=== PATIENT | male | born 1990 | race African-American/Black ===

== ENCOUNTER 2018-09-10 10:44 | Emergency (ER) | payer OTHER ==
--- NOTE | 2018-09-10 10:55 | PDOC ---
History of Present Illness - General Stated Complaint: FALL Time Seen by Provider: 09/10/18 10:54 - History of Present Illness Initial Comments: 09/10/18 11:12 Mr. Gaitan is a 28 yo male w/ pmh of HIV (newly started medications; T cell count undetectable) and asthma who presents for evaluation of seizure and fall. Per patient / mother patient had a less than one minute episode 09/07 in the evening of diffuse upper body shaking that he was not conscious for and was confused after. Patient was reportedly fine the next day however fell last night while walking to the bathroom and hit his head (denies LOC; reports he stumbled). Consulted with Dr. Gonzalez who recommended presenting for evaluation. The patient denies chest pain, shortness of breath, headache and dizziness. Denies fever, chills, nausea, vomit, diarrhea and constipation. Denies dysuria, frequency, urgency and hematuria. Allergies: NKDA Past History - Past Medical History Allergies/Adverse Reactions: Allergies Allergy/AdvReac Type Severity Reaction Status Date / Time No Known Allergies Allergy Verified 09/10/18 11:04 Home Medications: Ambulatory Orders Fluconazole [Diflucan -] 100 mg PO DAILY #30 tablet 03/27/16 Atovaquone [Mepron -] 1,500 mg PO DAILY@0800 #70 ml 08/01/18 Clotrimazole [Mycelex Venu's -] 10 mg PO 5XD #35 venu 08/01/18 Azithromycin [Zithromax -] 1,200 mg PO WEEKLY #8 tablet 08/08/18 Darunavir/Cobicistat [Prezcobix 800 mg-150 mg Tablet] 1 each PO DAILY #30 tablet 08/08/18 Emtricitabine/Tenofov Alafenam [Descovy 200-25 mg Tablet (Nf)] 1 each PO DAILY # 30 tablet 08/08/18 Lactose-Reduced Food [Ensure Original] 237 ml PO TID #90 liquid 08/08/18 Docusate Sodium [Colace -] 1 - 2 cap PO HS PRN #30 capsule MDD 2 08/12/18 Anemia: No Asthma: Yes ( A CHILD) Cancer: No Cardiac Disorders: No CVA: No COPD: No CHF: No Dementia: No Diabetes: No GI Disorders: No Disorders: No HTN: No Hypercholesterolemia: No Liver Disease: No Seizures: No Thyroid Disease: No - Surgical History Abdominal Surgery: No Appendectomy: No Cardiac Surgery: No Cholecystectomy: No Lung Surgery: No Neurologic Surgery: No Orthopedic Surgery: No - Suicide/Smoking/Psychosocial Hx Smoking History: Never smoked Hx Alcohol Use: Yes (SOCIAL) Drug/Substance Use Hx: No Substance Use Type: None Hx Substance Use Treatment: No Review of Systems - Review of Systems Comments:: 09/10/18 11:22 GENERAL/CONSTITUTIONAL: No fever or chills. No weakness. HEAD, EYES, EARS, NOSE AND THROAT: No change in vision. No ear pain or discharge. No sore throat. CARDIOVASCULAR: No chest pain or shortness of breath RESPIRATORY: No cough, wheezing, or hemoptysis. GASTROINTESTINAL: No nausea, vomiting, diarrhea or constipation. GENITOURINARY: No dysuria, frequency, or change in urination. MUSCULOSKELETAL: No joint or muscle swelling or pain. No neck or back pain. SKIN: No rash NEUROLOGIC: +Seizure-like episode as described. No other headache, vertigo, loss of consciousness, or change in strength/sensation. ENDOCRINE: No increased thirst. No abnormal weight change HEMATOLOGIC/LYMPHATIC: No anemia, easy bleeding, or history of blood clots. ALLERGIC/IMMUNOLOGIC: No hives or skin allergy. *Physical Exam - Physical Exam Comments: 09/10/18 11:22 GENERAL: +Patient extremely thin appearing however awake, alert, and fully oriented, in no acute distress HEAD: No signs of trauma, normocephalic, atraumatic EYES: PERRLA, EOMI, sclera anicteric, conjunctiva clear ENT: Auricles normal inspection, hearing grossly normal, nares patent, oropharynx clear without exudates. Moist mucosa NECK: Normal ROM, supple, no lymphadenopathy, JVD, or masses LUNGS: +Some wheezes appreciated in right lung [place], however no distress, speaks full sentences, clear to auscultation bilaterally HEART: Regular rate and rhythm, normal S1 and S2, no murmurs, rubs or gallops, peripheral pulses normal and equal bilaterally. ABDOMEN: Soft, nontender, normoactive bowel sounds. No guarding, no rebound. No masses EXTREMITIES: Normal inspection, Normal range of motion, no edema. No clubbing or cyanosis. NEUROLOGICAL: Cranial nerves II through XII grossly intact. Normal speech, normal gait, no focal sensorimotor deficits SKIN: Warm, Dry, normal turgor, no rashes or lesions noted. ED Treatment Course - LABORATORY CBC & Chemistry Diagram: 09/10/18 11:18 09/10/18 11:18 Medical Decision Making - Medical Decision Making 09/10/18 14:40 Mr. Gaitan is a 28 yo male w/ newly treated HIV who presents for evaluation of seizure. Consulted with ID who do not believe LP indicated emergently and broad workup started as below complete with head CT (negative for acute findings ; cerebral volume decreased vs. age). EKG negative. CXR negative. Patient elected to leave AMA while admission in progress. Risks explained however patient reports he will put his care "in god's hands." Patiented signed AMA forms and left ED. Laboratory Results - last 24 hr 09/10/18 09/10/18 09/10/18 11:18 11:18 11:18 WBC 2.3 L RBC 3.17 L Hgb 10.0 L Hct 30.3 L MCV 95.5 MCH 31.5 MCHC 33.0 RDW 19.1 H Plt Count 410 MPV 6.9 L Absolute Neuts (auto) 0.8 L Neutrophils % 33.1 L Neutrophils % (Manual) 30.0 L Band Neutrophils % 3.0 Lymphocytes % 36.8 Lymphocytes % (Manual) 28.0 D Monocytes % 9.9 Monocytes % (Manual) 11 H Eosinophils % 16.2 H Eosinophils % (Manual) 22.0 H Basophils % 4.0 H D Basophils % (Manual) 5.0 H Myelocytes % (Man) 0 Promyelocytes % (Man) 0 Blast Cells % (Manual) 0 Nucleated RBC % 0 Metamyelocytes 0 Hypochromia 0 Platelet Estimate Normal Polychromasia 0 Poikilocytosis 1+ Anisocytosis 1+ Macrocytosis 1+ Ovalocytes 1+ PT with INR 11.20 INR 0.95 PTT (Actin FS) 30.6 VBG pH 7.38 POC VBG pCO2 48.8 POC VBG pO2 35.2 Mixed VBG HCO3 28.4 H Sodium Potassium Chloride Carbon Dioxide Anion Gap BUN Creatinine Creat Clearance w eGFR POC Glucometer Random Glucose Lactic Acid Calcium Total Bilirubin AST ALT Alkaline Phosphatase Ammonia Troponin I Total Protein Albumin Urine Color Urine Appearance Urine pH Ur Specific [place] Urine Protein Urine Glucose (UA) Urine Ketones Urine Blood Urine Nitrite Urine Bilirubin Urine Urobilinogen Ur Leukocyte Esterase Urine WBC (Auto) Urine RBC (Auto) Salicylates Opiates Screen Methadone Screen Acetaminophen Barbiturate Screen Phencyclidine Screen Ur Amphetamines Screen MDMA (Ecstasy) Screen Benzodiazepines Screen Cocaine Screen U Marijuana (THC) Screen 09/10/18 09/10/18 09/10/18 11:18 11:18 11:18 WBC RBC Hgb Hct MCV MCH MCHC RDW Plt Count MPV Absolute Neuts (auto) Neutrophils % Neutrophils % (Manual) Band Neutrophils % Lymphocytes % Lymphocytes % (Manual) Monocytes % Monocytes % (Manual) Eosinophils % Eosinophils % (Manual) Basophils % Basophils % (Manual) Myelocytes % (Man) Promyelocytes % (Man) Blast Cells % (Manual) Nucleated RBC % Metamyelocytes Hypochromia Platelet Estimate Polychromasia Poikilocytosis Anisocytosis Macrocytosis Ovalocytes PT with INR INR PTT (Actin FS) VBG pH POC VBG pCO2 POC VBG pO2 Mixed VBG HCO3 Sodium 148 H Potassium 2.9 L* Chloride 122 H Carbon Dioxide 22 Anion Gap 4 L BUN 12 Creatinine 0.4 L Creat Clearance w eGFR > 60 POC Glucometer Random Glucose 49 L* Lactic Acid 0.9 Calcium 5.8 L* Total Bilirubin 0.1 L AST 28 ALT 35 Alkaline Phosphatase 312 H Ammonia Troponin I < 0.02 Total Protein 4.6 L Albumin 2.1 L Urine Color Urine Appearance Urine pH Ur Specific [place] Urine Protein Urine Glucose (UA) Urine Ketones Urine Blood Urine Nitrite Urine Bilirubin Urine Urobilinogen Ur Leukocyte Esterase Urine WBC (Auto) Urine RBC (Auto) Salicylates < 1.7 L Opiates Screen Methadone Screen Acetaminophen < 2 L Barbiturate Screen Phencyclidine Screen Ur Amphetamines Screen MDMA (Ecstasy) Screen Benzodiazepines Screen Cocaine Screen U Marijuana (THC) Screen 09/10/18 09/10/18 09/10/18 11:18 11:30 11:30 WBC RBC Hgb Hct MCV MCH MCHC RDW Plt Count MPV Absolute Neuts (auto) Neutrophils % Neutrophils % (Manual) Band Neutrophils % Lymphocytes % Lymphocytes % (Manual) Monocytes % Monocytes % (Manual) Eosinophils % Eosinophils % (Manual) Basophils % Basophils % (Manual) Myelocytes % (Man) Promyelocytes % (Man) Blast Cells % (Manual) Nucleated RBC % Metamyelocytes Hypochromia Platelet Estimate Polychromasia Poikilocytosis Anisocytosis Macrocytosis Ovalocytes PT with INR INR PTT (Actin FS) VBG pH POC VBG pCO2 POC VBG pO2 Mixed VBG HCO3 Sodium Potassium Chloride Carbon Dioxide Anion Gap BUN Creatinine Creat Clearance w eGFR POC Glucometer Random Glucose Lactic Acid Calcium Total Bilirubin AST ALT Alkaline Phosphatase Ammonia 18.75 Troponin I Total Protein Albumin Urine Color Yellow Urine Appearance Slcloudy Urine pH 6.0 Ur Specific [place] 1.017 Urine Protein Negative Urine Glucose (UA) Negative Urine Ketones Negative Urine Blood Negative Urine Nitrite Negative Urine Bilirubin Negative Urine Urobilinogen 2.0 Ur Leukocyte Esterase 1+ H Urine WBC (Auto) 12 Urine RBC (Auto) 1 Salicylates Opiates Screen Positive A* Methadone Screen Negative Acetaminophen Barbiturate Screen Negative Phencyclidine Screen Negative Ur Amphetamines Screen Negative MDMA (Ecstasy) Screen Negative Benzodiazepines Screen Positive A* Cocaine Screen Negative U Marijuana (THC) Screen Negative 09/10/18 13:19 WBC RBC Hgb Hct MCV MCH MCHC RDW Plt Count MPV Absolute Neuts (auto) Neutrophils % Neutrophils % (Manual) Band Neutrophils % Lymphocytes % Lymphocytes % (Manual) Monocytes % Monocytes % (Manual) Eosinophils % Eosinophils % (Manual) Basophils % Basophils % (Manual) Myelocytes % (Man) Promyelocytes % (Man) Blast Cells % (Manual) Nucleated RBC % Metamyelocytes Hypochromia Platelet Estimate Polychromasia Poikilocytosis Anisocytosis Macrocytosis Ovalocytes PT with INR INR PTT (Actin FS) VBG pH POC VBG pCO2 POC VBG pO2 Mixed VBG HCO3 Sodium Potassium Chloride Carbon Dioxide Anion Gap BUN Creatinine Creat Clearance w eGFR POC Glucometer [id number] Random Glucose Lactic Acid Calcium Total Bilirubin AST ALT Alkaline Phosphatase Ammonia Troponin I Total Protein Albumin Urine Color Urine Appearance Urine pH Ur Specific [place] Urine Protein Urine Glucose (UA) Urine Ketones Urine Blood Urine Nitrite Urine Bilirubin Urine Urobilinogen Ur Leukocyte Esterase Urine WBC (Auto) Urine RBC (Auto) Salicylates Opiates Screen Methadone Screen Acetaminophen Barbiturate Screen Phencyclidine Screen Ur Amphetamines Screen MDMA (Ecstasy) Screen Benzodiazepines Screen Cocaine Screen U Marijuana (THC) Screen 09/10/18 14:42 *DC/Admit/Observation/Transfer Diagnosis at time of Disposition: AIDS with cachexia, Seizure Leukopenia Qualifiers: Leukopenia type: unspecified Qualified Code(s): D72.819 - Decreased white blood cell count, unspecified Neutropenia Qualifiers: Neutropenia type: unspecified Qualified Code(s): D70.9 - Neutropenia, unspecified - Discharge Dispostion Disposition: AGAINST MEDICAL ADVICE - Referrals - Patient Instructions Additional Instructions: You were evaluated today in the emergency room for your seizure and elected to leave AMA when admission was pending. Please follow-up with primary care provider as soon as possible. Return to ER if any further neurological symptoms , fevers, chills, or other concerning symptoms. - Post Discharge Activity
[2018-09-10] MEDS: ALBUTEROL SO4 2.5/IPRATROPIUM 0.5 INH SOL 3 ML VIAL.NEB. NEB SCH ×4 (11:15→12:09)
[2018-09-10] MEDS ORDERED: ALBUTEROL SO4 2.5/IPRATROPIUM 0.5 INH SOL 3 ML VIAL.NEB. NEB ONE (11:30)
[2018-09-10 11:34] LABS: VENOUS PC02 48.8 mmHg (38-52); VENOUS PH 7.38 (7.32-7.42); VENOUS PO2 35.2 mmHg (28-48)
[2018-09-10 11:43] VITALS: BMI 20.3
[2018-09-10 11:44] LABS: EOS % 16.2 % (0-4.5); HEMATOCRIT 30.3 % (35.4-49); LYMPH % 36.8 % (8-40); MCH 31.5 pg (25.7-33.7); MEAN CELL VOLUME 95.5 fl (80-96); MEAN PLT VOLUME 6.9 fl (7.5-11.1); MONO % 9.9 % (3.8-10.2); NEUT % 33.1 % (42.8-82.8); PLATELET COUNT 410 K/MM3 (134-434); RBC 3.17 M/mm3 (4.00-5.60); RDW 19.1 % (11.9-15.9); WHITE BLOOD COUNT 2.3 K/mm3 (4.0-10.0)
[2018-09-10 11:55] LABS: URINE APPEARANCE SLCLOUDY; URINE BILIRUBIN NEGATIVE (<2.0 mg/dL); URINE COLOR YELLOW; URINE GLUCOSE (UA) NEGATIVE (NEGATIVE); URINE KETONE NEGATIVE (NEGATIVE); URINE LEUK ESTERASE 1+ (NEGATIVE); URINE NITRITE NEGATIVE (NEGATIVE); URINE PROTEIN NEGATIVE (NEGATIVE)
[2018-09-10 12:01] LABS: COCAINE, UR NEGATIVE ng/ml (CUTOFF=300); METHADONE, UR NEGATIVE ng/ml (CUTOFF=300); PHENCYCLIDINE,URINE NEGATIVE ng/ml (CUTOFF=25); URINE AMPHETAMINES NEGATIVE ng/ml (CUTOFF=500); URINE BARBITURATES NEGATIVE ng/ml (CUTOFF=200)
[2018-09-10 12:08] LABS: INR 0.95 (0.83-1.09); PROTHROMBIN TIME (PATIENT) 11.2 SEC (9.7-13.0)
[2018-09-10 12:11] LABS: ACTIVATED PTT 30.6 SECONDS (25.2-36.5)
[2018-09-10 12:22] LABS: ALBUMIN 2.1 g/dl (3.4-5.0); ALK PHOS 312 U/L (45-117); ANION GAP 4 MMOL/L (8-16); BILIRUBIN,TOTAL 0.1 mg/dL (0.2-1); BLOOD UREA NITROGEN 12 mg/dL (7-18); CHLORIDE 122 mmol/L (98-107); CO2 22 mmol/L (21-32); CREATININE 0.4 mg/dL (0.55-1.3); SGOT/AST 28 U/L (15-37); SGPT/ALT 35 U/L (13-61); SODIUM 148 mmol/L (136-145); TOT PROT 4.6 g/dl (6.4-8.2)
[2018-09-10 12:27] LABS: OPIATES, URI POSITIVE ng/ml (CUTOFF=300); URINE BENZODIAZEPINES POSITIVE ng/ml (CUTOFF=200)
[2018-09-10 12:30] LABS: GLUCOSE,RANDOM 49 mg/dL (74-106); POTASSIUM 2.9 mmol/L (3.5-5.1)
[2018-09-10 12:31] LABS: CALCIUM 5.8 mg/dL (8.5-10.1)
[2018-09-10] MEDS ORDERED: CALCIUM GLUCONATE 10% - 1,000 MG/10 ML VIAL IVPB ONE (12:46)
--- NOTE | 2018-09-10 12:50 | PDOC ---
Attending Attestation - Resident Resident Name: CarltonirisIsraKeshav - ED Attending Attestation I have performed the following: I have examined & evaluated the patient, The case was reviewed & discussed with the resident, I agree w/resident's findings & plan - HPI HPI: 09/10/18 12:45 28-year-old male with history of untreated HIV/AIDS, recently started on HIV meds by the [facility] about 6 weeks ago, now referred for evaluation in the setting of possible seizure episode 3 nights ago and trip and fall last night. Patient was in his baseline state of health, while lying in bed was noted to have upper torso and face tremors with change in mental status, lasted seconds and then resolved without associated postictal state per mom, immediately after the tremors he asked "what happened" and was otherwise neurologically intact and oriented. Patient returned to his baseline, last night while walking in the dark tripped and scraped his left estrella, denied any head injury. Spoke with Dr. Gonzalez today, noted his seizure episode, and referred to ED. no travel, no recent headaches, no f/c. (on exam, was noted to have slight gaze deviation of L eye on upward gaze. States he has noticed this for about 2 years). - Physicial Exam PE: 09/10/18 12:48 vitals as noted, afebrile Pain, otherwise alert and speaking full sentences Head is atraumatic Pupils are equal round reactive, extraocular movements intact but slight outward deviation noted on left thigh with upper gaze, causes slight diplopia but the patient can correct No mucosal lesions Heart is regular, lungs are clear Abdomen benign Neurologically intact - Medical Decision Making 09/10/18 12:49 28-year-old male with HIV/AIDS presents with possible new onset partial seizure , concerning for space-occupying lesion versus infectious process given his immunocompromise state. Fall last night was very mechanical, low mechanism left estrella injury without subsequent headache injury and without evidence of seizure or syncope activity at that time. Labs, cultures CT head with and without contrast Chest x-ray Discuss with ID, ? LP Dispo accordingly <Jose F Arce - Last Filed: 09/10/18 12:50> - Medical Decision Making 09/10/18 13:[address] Gonzalez, ID's answering service, awaiting call back. 14:[address] Gonzalez, case was discussed with resident, Dr. Allen. 14:[address] Koenig's answering service, admitting doctor for Dr. Rick patient's PCP, awaiting call back. <Oscar Calloway - Last Filed: 09/10/18 14:18> Heart Score/ECG Review #1 ECG reviewed & interpreted by me at: 11:13 General ECG Interpretation: Sinus Rhythm, Normal Rate (83), Normal Intervals ( qtc 413), No acute ischemic changes <Jose F Arce - Last Filed: 09/10/18 12:50> Attestations - Attestations 09/10/18 13:34 Documentation prepared by Oscar Calloway, acting as medical transcription radiology for Jose F Arce MD. <Oscar Calloway - Last Filed: 09/10/18 14:18>
[2018-09-10] MEDS ORDERED: KCL 10 MEQ IVPB 10 MEQ/100 ML INFUS.BAG IVPB SCH (13:00)
[2018-09-10] MEDS ORDERED: KCL 10 MEQ IVPB 30 MEQ/300 ML INFUS.BAG IVPB ONE (13:12)
[2018-09-10] MEDS ORDERED: CALCIUM GLUCONATE 10% - 1,000 MG/10 ML VIAL ONE (13:12)
[2018-09-10 13:48] LABS: ANISOCYTOSIS 1+; MACROCYTOSIS 1+; OVALOCYTE 1+; PLATELET ESTIMATE NORMAL
[2018-09-10 14:22] VITALS: BP 122/75; PULSE 51; TEMP 98.9
--- NOTE | 2018-09-11 11:09 | EKG ---
Test Reason : Blood Pressure : / mmHG Vent. Rate : 083 BPM Atrial Rate : 083 BPM P-R Int : 130 ms QRS Dur : 092 ms QT Int : 352 ms P-R-T Axes : 063 035 053 degrees QTc Int : 413 ms NORMAL SINUS RHYTHM NORMAL ECG WHEN COMPARED WITH ECG OF 08-AUG-2018 11:48, NO SIGNIFICANT CHANGE WAS FOUND Confirmed by MAILE WELLS MD ([id number]) on 09/11/2018 11:09:30 AM Referred By: Confirmed By:MAILE WELLS MD
== END 2018-09-10 14:47 | disposition left against medical advice (07) ==
LOC: JER 10:44
PROC: 3E0F7GC Introduction of Other Therapeutic Substance into Respiratory Tract, Via Natural or Artificial Opening (ICD-10-PCS; principal; 2018-09-10)
PROC: 3E0337Z Introduction of Electrolytic and Water Balance Substance into Peripheral Vein, Percutaneous Approach (ICD-10-PCS; 2018-09-10)
DX: R56.9 Unspecified convulsions (principal); S09.8XXA Other specified injuries of head, initial encounter; W18.39XA Other fall on same level, initial encounter; Y93.89 Activity, other specified; Y92.031 Bathroom in apartment as the place of occurrence of the external cause; Y99.8 Other external cause status; B20 Human immunodeficiency virus [HIV] disease; R64 Cachexia; Z68.20 Body mass index [BMI] 20.0-20.9, adult; J45.909 Unspecified asthma, uncomplicated
CPT/HCPCS: 36415; 70470-TC; 71045-TC-FY; 80053; 80307; 81003; 81015; 82140; 82803; 82962; 83605; 84484; 85025; 85610; 85730; 87040; 87086; 93005; 93010; 94640; 96374; 96375; 99283-25

== ENCOUNTER → 2019-07-15 | Outpatient (CLI) | payer OTHER | LOC: YHH 14:45 ==

== ENCOUNTER 2019-12-28 11:38 | Inpatient (IN) | payer OTHER ==
[2019-12-28 13:21] VITALS: BMI 25.9
--- NOTE | 2019-12-28 16:00 | HP ---
COWS - Scale Resting Pulse: 0= SC 80 or Below Sweatin= Chills/Flushing Restless Observation: 1= Difficult to Sit Still Pupil Size: 1= Pupils >than Normal Bone or Joint Aches: 1= Mild Discomfort Runny Nose/ Eye Tearin= Nasal Congestion GI Upset > 30mins: 2= Nausea/Diarrhea Tremor Observation: 1= Tremor [place], Not Seen Yawning Observation: 1= 1-2x During Session Anxiety or Irritability: 1=Feels Anxious/Irritable Goose Flesh Skin: 3=Piloerection COWS Score: 13 CIWA Score Nausea/Vomitin (diarrhea) Muscle Tremors: 2 Anxiety: 2 Agitation: 2 Paroxysmal Sweats: 2 Orientation: 0-Oriented Tacttile Disturbances: 2-Mild Itch/Numbness/Burn Auditory Disturbances: 0-None Visual Disturbances: 2-Mild Sensitivity Headache: 1-Very Mild CIWA-Ar Total Score: 16 - Admission Criteria [facility] Guidelines: Admission for Medically Managed Detox: Requires at least one of the followin. CIWA greater than 12 2. Seizures within the past 24 hours 3. Delirium tremens within the past 24 hours 4. Hallucinations within the past 24 hours 5. Acute intervention needed for co occurring medical disorder 6. Acute intervention needed for co occurring psychiatric disorder 7. Severe withdrawal that cannot be handled at a lower level of care (continued vomiting, continued diarrhea, abnormal vital signs) requiring intravenous medication and/or fluids 8. Patient presents the following: CIWA greater than 12 Admission Criteria Met: Admission criteria met Admitting History and Physical - Past Medical History GIS MAPPING TECHNICIAN: Yes: Other (ANXIETY DISORDER) Pulmonary: Yes: Asthma Psych: Yes: Anxiety, Panic - Past Surgical History Past Surgical History: Yes: None - Smoking History Smoking history: Unknown if ever smoked - Alcohol/Substance Use Hx Alcohol Use: Yes (SOCIAL) History of Substance Use: reports: None - Social History History of Recent Travel: No Admission ROS [facility] - HPI Chief Complaint: I am here to get detox Allergies/Adverse Reactions: Allergies Allergy/AdvReac Type Severity Reaction Status Date / Time sulfamethoxazole Allergy Intermediate Rash Verified 12/28/19 13:12 [From Bactrim] trimethoprim [From Bactrim] Allergy Intermediate Rash Verified 12/28/19 13:12 History of Present Illness: 29 year old man with poly-substance use presents for detox, his urine screen is negative for benzo as he reports he hasn't used in a few days. This is his first time in detox. Exam Limitations: No Limitations - Ebola screening Have you traveled outside of the country in the last 21 days: No Have you had contact with anyone from an Ebola affected area: No Have you been sick,other than usual withdrawal symptoms: No Do you have a fever: No - Review of Systems Constitutional: Chills, Loss of Appetite, Changes in sleep, Weight Stable EENT: reports: Nose Congestion Respiratory: reports: No Symptoms reported Cardiac: reports: No Symptoms Reported GI: reports: Diarrhea, Nausea, Abdominal cramping : reports: No Symptoms Reported Musculoskeletal: reports: Back Pain, Joint Pain, Muscle Pain, Neck Pain Integumentary: reports: Sweating Neuro: reports: Headache, Numbness, Tremors Endocrine: reports: No Symptoms Reported Hematology: reports: No Symptoms Reported Psychiatric: reports: Depressed (not on meds) Other Systems: Reviewed and Negative Patient History - Patient Medical History Hx Anemia: No Hx Asthma: Yes ( A CHILD) Hx Chronic Obstructive Pulmonary Disease (COPD): No Hx Cancer: No Hx Cardiac Disorders: No Hx Congestive Heart Failure: No Hx Hypertension: No Hx Hypercholesterolemia: No Hx Pacemaker: No HX Cerebrovascular Accident: No Hx Seizures: Yes (last event was 7 months ago, unrelated to drugs) Hx Dementia: No Hx Diabetes: No Hx Gastrointestinal Disorders: No Hx Liver Disease: No Hx Genitourinary Disorders: No Hx Renal Disease (ESRD): No Hx Thyroid Disease: No Hx Human Immunodeficiency Virus (HIV): Yes Hx Hepatitis C: No Hx Depression: No Hx Suicide Attempt: Yes (as a child) Hx Bipolar Disorder: No Hx Schizophrenia: No - Patient Surgical History Past Surgical History: No Anesthesia Reaction: No (NEVER HAD ANESTHESIA) - PPD History Previous Implant?: Yes Documented Results: Negative w/o proof Implanted On Prior [facility] Admission?: Yes Date: 03/19/16 PPD to be Administered?: Yes - Smoking Cessation Smoking history: Never smoked Hx Chewing Tobacco Use: No - Substances abused Alcohol Substance route: Oral Frequency: 3-6 times per week Amount used: 1 liter of rum Age of first use: 20 Date of last use: 12/26/19 Heroin Substance route: Inhalation Frequency: Daily Amount used: 4 bags Age of first use: 23 Date of last use: 12/28/19 Cocaine Substance route: Inhalation Frequency: 1-2 times per week Amount used: $100 Age of first use: 27 Date of last use: 12/26/19 Alprazolam (Xanax) Substance route: Inhalation Frequency: 1-2 times per week Amount used: 2 bars Age of first use: 19 Date of last use: 12/23/19 Admission Physical Exam [facility] - Vital Signs Vital Signs: Vital Signs - 24 hr 12/28/19 13:15 Temperature 97.8 F Pulse Rate 76 Respiratory 16 Rate Blood Pressure 132/83 - Physical General Appearance: Yes: No Apparent Distress HEENTM: Yes: Hearing grossly Normal, Normal ENT Inspection, Normocephalic, Normal Voice Respiratory: Yes: Chest Non-Tender, Lungs Clear, Normal Breath Sounds, No Respiratory Distress, No Accessory Muscle Use Neck: Yes: No masses,lesions,Nodules, Supple Breast: Yes: Breast Exam Deferred Cardiology: Yes: Regular Rhythm, Regular Rate, S1, S2 Abdominal: Yes: Normal Bowel Sounds, Non Tender, Soft Genitourinary: Yes: Within Normal Limits Back: Yes: Normal Inspection Musculoskeletal: Yes: full range of Motion, Gait Steady, Pelvis Stable Extremities: Yes: Tremors, Coldness Neurological: Yes: glass designer II-XII NML intact, Fully Oriented, Alert, Normal Mood/ Affect, Normal Response Integumentary: Yes: Clammy Lymphatic: Yes: Within Normal Limits - Diagnostic (1) Alcohol dependence, uncomplicated Current Visit: Yes Status: Acute (2) Opiate dependence Current Visit: Yes Status: Acute Qualifiers: Substance use status: uncomplicated Qualified Code(s): F11.20 - Opioid dependence, uncomplicated (3) Benzodiazepine abuse Current Visit: Yes Status: Acute (4) Cocaine abuse Current Visit: Yes Status: Acute (5) HIV (human immunodeficiency virus infection) Current Visit: No Status: Chronic Qualifiers: HIV symptom status: asymptomatic Qualified Code(s): Z21 - Asymptomatic human immunodeficiency virus [HIV] infection status Comment: alida Cleared for Admission [facility] - Detox or Rehab [facility] Level of Care: Medically Managed Detox Regimen/Protocol: Methadone/Librium Claeared for Rehab Admission: No Breathalyzer - Breathalyzer Breathalyzer: 0 Urine Drug Screen - Test Device Lot number: [id number] Expiration date: 06/12/21 - Control Is test valid?: Yes - Results Drug screen NEGATIVE: No Urine drug screen results: ALIX-Cocaine, MOP-Opiates Inpatient Rehab Admission - Rehab Decision to Admit Inpatient rehab admission?: No
[2019-12-28] MEDS ORDERED: ACETAMINOPHEN 325 MG TABLET (FP) PO PRN ×2 (16:08)
[2019-12-28] MEDS ORDERED: NALOXONE HCL 0.4 MG/ML VIAL IM PRN (16:08)
[2019-12-28] MEDS ORDERED: MAGNESIUM CITRATE 300 ML BOTTLE PO PRN (16:08)
[2019-12-28] MEDS ORDERED: BISMUTH SUBSALICYLATE 524 MG/30 ML UD PO PRN (16:08)
[2019-12-28] MEDS ORDERED: MENTHOL/PHENOL 1 EACH UD MM PRN (16:08)
[2019-12-28] MEDS ORDERED: MAG HYDROX/AL HYDROX/SIMETH 30 ML UNIT-DOSE CUP PO PRN (16:08)
[2019-12-28] MEDS ORDERED: METHADONE HCL 10 MG TABLET (FOR DETOX USE ONLY) PO ONE (16:08)
[2019-12-28] MEDS ORDERED: METHOCARBAMOL 500 MG TABLET PO PRN (16:08)
[2019-12-28] MEDS ORDERED: MELATONIN 5 MG TABLETS PO PRN (16:08)
[2019-12-28] MEDS ORDERED: diazePAM 5 MG TABLET PO ONE (16:08)
[2019-12-28] MEDS ORDERED: cloNIDine HCL 0.1 MG TABLET PO PRN (16:08)
[2019-12-28] MEDS ORDERED: IBUPROFEN 400 MG TABLET (FP) PO PRN (16:08)
[2019-12-28] MEDS ORDERED: diazePAM 5 MG TABLET PO PRN (16:08)
[2019-12-28] MEDS ORDERED: MAGNESIUM HYDROX 2400MG/30ML ORAL SUSPENSION 30 ML CUP PO PRN (16:08)
[2019-12-28] MEDS ORDERED: chlordiazePOXIDE HCL 10 MG CAPSULE PO PRN (16:15)
[2019-12-28] MEDS ORDERED: PATIENT'S OWN MEDICATION (NON-FORMULARY) (Bictegrav/Emtricit/Tenofov Ala 1 EACH) PO SCH (16:15)
[2019-12-28] MEDS ORDERED: chlordiazePOXIDE HCL 25 MG CAPSULE PO ONE (16:15)
[2019-12-28 17:30] VITALS: BP 127/75; PULSE 56; TEMP 98.4
--- NOTE | 2019-12-28 18:57 | DS ---
[facility] Detox Discharge Summary Admission Date: 12/28/19 Discharge Date: 12/28/19 - History Present History: Opioid Dependence Pertinent Past History: HIV positive Depression - Physical Exam Results Vital Signs: Vital Signs Temperature 98.4 F 12/28/19 17:19 Pulse Rate 56 L 12/28/19 17:19 Respiratory Rate 18 12/28/19 17:19 Blood Pressure 127/75 12/28/19 17:19 O2 Sat by Pulse Oximetry (%) Pertinent Admission Physical Exam Findings: Withdrawal sx - Medication Discharge Medications: Ambulatory Orders Bictegrav/Emtricit/Tenofov Ala [Biktarvy 50-200-25 mg Tablet] 1 each PO DAILY # 30 tablet 11/11/19 - Diagnosis (1) Alcohol dependence, uncomplicated Current Visit: Yes Status: Acute (2) Opiate dependence Current Visit: Yes Status: Acute Qualifiers: Substance use status: uncomplicated Qualified Code(s): F11.20 - Opioid dependence, uncomplicated (3) Benzodiazepine abuse Current Visit: Yes Status: Acute (4) Cocaine abuse Current Visit: Yes Status: Acute (5) HIV (human immunodeficiency virus infection) Current Visit: No Status: Chronic Qualifiers: HIV symptom status: asymptomatic Qualified Code(s): Z21 - Asymptomatic human immunodeficiency virus [HIV] infection status - AMA Did Patient Leave Against Medical Advice: Yes (Pt. claims he brought paper wk from his job that cant be found so he's boo)
[2019-12-28] MEDS ORDERED: chlordiazePOXIDE HCL 25 MG CAPSULE PO SCH (21:00)
[2019-12-28] MEDS ORDERED: diazePAM 5 MG TABLET PO SCH (22:00)
[2019-12-28] MEDS ORDERED: THIAMINE HCL 100 MG TABLET (FP) PO SCH (22:00)
--- NOTE | 2019-12-29 09:47 | EKG ---
Test Reason : Blood Pressure : / mmHG Vent. Rate : 058 BPM Atrial Rate : 058 BPM P-R Int : 130 ms QRS Dur : 098 ms QT Int : 402 ms P-R-T Axes : 048 029 037 degrees QTc Int : 394 ms SINUS BRADYCARDIA OTHERWISE NORMAL ECG WHEN COMPARED WITH ECG OF 10-SEP-2018 11:13, NO SIGNIFICANT CHANGE WAS FOUND Confirmed by iKm Pappas ([id number]) on 12/29/2019 9:47:09 AM Referred By: DIMAS Confirmed By:Kim Pappas
[2019-12-29] MEDS ORDERED: METHADONE HCL 5 MG TABLET (FOR DETOX USE ONLY) PO ONE (10:00)
[2019-12-29] MEDS ORDERED: PRENATAL VITAMINS W/ FOLIC ACID TABLET (FP) PO SCH (10:00)
[2019-12-30] MEDS ORDERED: chlordiazePOXIDE 5 MG CAPSULE PO SCH (05:00)
[2019-12-30] MEDS ORDERED: diazePAM 5 MG TABLET PO SCH (06:00)
[2019-12-30] MEDS ORDERED: METHADONE HCL 10 MG TABLET (FOR DETOX USE ONLY) PO ONE (10:00)
[2019-12-31] MEDS ORDERED: chlordiazePOXIDE HCL 10 MG CAPSULE PO PRN
[2019-12-31] MEDS ORDERED: chlordiazePOXIDE HCL 10 MG CAPSULE PO SCH (05:00)
[2019-12-31] MEDS ORDERED: METHADONE HCL 5 MG TABLET (FOR DETOX USE ONLY) PO ONE (06:00)
[2019-12-31] MEDS ORDERED: diazePAM 5 MG TABLET PO ONE (06:00)
[2020-01-01] MEDS ORDERED: chlordiazePOXIDE HCL 10 MG CAPSULE PO ONE (05:00)
== END 2019-12-28 17:15 | disposition left against medical advice (07) | DRG 770 ==
LOC: YASAS 11:38 → Y6N 16:39
PROVIDERS: ADMIT Allergy & Immunology; ATTEND Allergy & Immunology
PROC: HZ2ZZZZ Detoxification Services for Substance Abuse Treatment (ICD-10-PCS; principal; 2019-12-28)
DX: F11.23 Opioid dependence with withdrawal (principal); F10.230 Alcohol dependence with withdrawal, uncomplicated; F14.10 Cocaine abuse, uncomplicated; F32.9 Major depressive disorder, single episode, unspecified; F41.9 Anxiety disorder, unspecified; Z21 Asymptomatic human immunodeficiency virus [HIV] infection status; Z87.09 Personal history of other diseases of the respiratory system; Z86.69 Personal history of other diseases of the nervous system and sense organs; Z88.2 Allergy status to sulfonamides; Z91.5 Personal history of self-harm
CPT/HCPCS: 93005; 93010

== ENCOUNTER 2019-12-31 19:50 | Inpatient (IN) | payer OTHER ==
[2019-12-31 20:58] VITALS: BMI 25.2
--- NOTE | 2019-12-31 21:19 | HP ---
COWS - Scale Resting Pulse: 2= [place] 101-120 Sweatin=Flushed/Facial Moisture Restless Observation: 0= Sits Still Pupil Size: 1= Pupils >than Normal Bone or Joint Aches: 2= Severe Diffuse Aches Runny Nose/ Eye Tearin= Runny Nose/Eyes GI Upset > 30mins: 2= Nausea/Diarrhea (diarrhea x 2) Tremor Observation: 2= Slight Tremor Visible Yawning Observation: 0= None Anxiety or Irritability: 2=Irritable/Anxious Goose Flesh Skin: 0=Smooth Skin (v) COWS Score: 15 CIWA Score Nausea/Vomitin Muscle Tremors: 3 Anxiety: 3 Agitation: 2 Paroxysmal Sweats: 3 Orientation: 2-Disoriented Date<2 days Tacttile Disturbances: 0-None Auditory Disturbances: 0-None Visual Disturbances: 0-None Headache: 0-None Present CIWA-Ar Total Score: 16 - Admission Criteria OASAS Guidelines: Admission for Medically Managed Detox: Requires at least one of the followin. CIWA greater than 12 2. Seizures within the past 24 hours 3. Delirium tremens within the past 24 hours 4. Hallucinations within the past 24 hours 5. Acute intervention needed for co occurring medical disorder 6. Acute intervention needed for co occurring psychiatric disorder 7. Severe withdrawal that cannot be handled at a lower level of care (continued vomiting, continued diarrhea, abnormal vital signs) requiring intravenous medication and/or fluids 8. Admitting History and Physical - Past Medical History [employer]: Yes: Other (ANXIETY DISORDER) Pulmonary: Yes: Asthma Psych: Yes: Anxiety, Panic - Past Surgical History Past Surgical History: Yes: None - Smoking History Smoking history: Never smoked - Alcohol/Substance Use Hx Alcohol Use: Yes (SOCIAL) History of Substance Use: reports: None - Social History History of Recent Travel: No Admission [facility] Chief Complaint: Heroin and benzo withdrawal symptoms Allergies/Adverse Reactions: Allergies Allergy/AdvReac Type Severity Reaction Status Date / Time sulfamethoxazole Allergy Intermediate Rash Verified 12/31/19 20:44 [From Bactrim] trimethoprim [From Bactrim] Allergy Intermediate Rash Verified 12/31/19 20:44 History of Present Illness: 29 years old male with 5 years of heroin and benzo. dependence is seeking admission to detox. This is his first admission to [facility] as his initial admission was aborted because he forget to drop his time sheet at work and he had to leave. He has medical history of HIV+, seizures, asthma and psych. history of depression. He reports suicide attempt at age 4 and denies suicidal ideation at this time. He denies + eye opener tender, alcohol related seizures and blackouts. He is employed and lives with his family. Exam Limitations: No Limitations - Ebola screening Have you traveled outside of the country in the last 21 days: No Have you been sick,other than usual withdrawal symptoms: No Do you have a fever: No - Review of Systems Constitutional: Chills, Malaise, Night Sweats, Changes in sleep EENT: reports: No Symptoms Reported Respiratory: reports: No Symptoms reported Cardiac: reports: No Symptoms Reported GI: reports: Diarrhea, Nausea, Poor Appetite, Poor Fluid Intake, Abdominal cramping : reports: No Symptoms Reported Musculoskeletal: reports: Back Pain, Joint Pain, Muscle Pain, Muscle Weakness Integumentary: reports: Dryness, Flushing Neuro: reports: Tremors Endocrine: reports: No Symptoms Reported Hematology: reports: No Symptoms Reported Psychiatric: reports: Mood/Affect Appropiate, Orientated x3, Depressed Other Systems: Reviewed and Negative Patient History - Patient Medical History Hx Anemia: No Hx Asthma: Yes (Albuterol) Hx Chronic Obstructive Pulmonary Disease (COPD): No Hx Cancer: No Hx Cardiac Disorders: No Hx Congestive Heart Failure: No Hx Hypertension: No Hx Hypercholesterolemia: No Hx Pacemaker: No HX Cerebrovascular Accident: No Hx Seizures: Yes (APRIL 2019) Hx Dementia: No Hx Diabetes: No Hx Gastrointestinal Disorders: No Hx Liver Disease: No Hx Genitourinary Disorders: No Hx Sexually Transmitted Disorders: No Hx Renal Disease (ESRD): No Hx Thyroid Disease: No Hx Human Immunodeficiency Virus (HIV): Yes (Bictegrav/Emtricit/Tenofov Ala [ Biktarvy 50-200-25 mg Tablet]) Hx Hepatitis C: No Hx Depression: Yes Hx Suicide Attempt: Yes (Attempt at age 4, denies suicidal ideation at this time ) Hx Bipolar Disorder: No Hx Schizophrenia: No - Patient Surgical History Past Surgical History: No Hx Neurologic Surgery: No Hx Cataract Extraction: No Hx Cardiac Surgery: No Hx Lung Surgery: No Hx Abdominal Surgery: No Hx Appendectomy: No Hx Cholecystectomy: No Hx Genitourinary Surgery: No Hx Orthopedic Surgery: No Anesthesia Reaction: No (NEVER HAD ANESTHESIA) - PPD History Previous Implant?: Yes Documented Results: Positive w/proof Implanted On Prior R Admission?: Yes Date: 12/30/19 PPD to be Administered?: No - Reproductive History Patient is a Female of Child Bearing Age (11 -55 yrs old): No (male) - Smoking Cessation Smoking history: Never smoked Have you smoked in the past 12 months: No Hx Chewing Tobacco Use: No Initiated information on smoking cessation: No - Substance & Tx. History Hx Alcohol Use: Yes Hx Substance Use: Yes Substance Use Type: Alcohol, Cocaine, Heroin, Tranquilizers Hx Substance Use Treatment: No (Aborted dmission on 12/28/2019) - Substances abused Alcohol Substance route: Oral Frequency: Daily Amount used: 1 PINT OF TEQUILA Age of first use: 20 Date of last use: 12/29/19 Alprazolam (Xanax) Substance route: Oral Frequency: 3-6 times per week Amount used: 2MG Age of first use: 23 Date of last use: 12/31/19 Heroin Other (specify): SNIFF Frequency: Daily Amount used: 4-6 BAGS Age of first use: 25 Date of last use: 12/31/19 Cocaine Substance route: Smoking Frequency: Daily Amount used: $100 Age of first use: 28 Date of last use: 12/23/19 Admission Physical Exam S - Vital Signs Vital Signs: Vital Signs - 24 hr 12/31/19 20:53 Temperature 98.6 F Pulse Rate 114 H Respiratory 18 Rate Blood Pressure 126/86 - Physical General Appearance: Yes: Moderate Distress, Tremorous, Sweating, Anxious HEENTM: Yes: Within Normal Limits Respiratory: Yes: Lungs Clear, Normal Breath Sounds, No Respiratory Distress Neck: Yes: Within Normal Limits Breast: Yes: Breast Exam Deferred Cardiology: Yes: Tachycardia Abdominal: Yes: Normal Bowel Sounds, Soft Genitourinary: Yes: Within Normal Limits Back: Yes: Normal Inspection Musculoskeletal: Yes: Back pain, Muscle Pain Extremities: Yes: Tremors Neurological: Yes: Within Normal Limits Integumentary: Yes: Warm Lymphatic: Yes: Within Normal Limits - Diagnostic (1) Sedative, hypnotic or anxiolytic dependence with withdrawal, uncomplicated Current Visit: Yes Status: Acute (2) Alcohol dependence, uncomplicated Current Visit: Yes Status: Chronic (3) Asthma Current Visit: Yes Status: Chronic Qualifiers: Asthma persistence: unspecified Asthma complication type: unspecified (4) Pneumonia Current Visit: Yes Status: Chronic Qualifiers: Aspiration pneumonia type: unspecified (5) Seizure Current Visit: No Status: Acute Comment: no further seizures refuses further neurology workup or evaluation (6) Anxiety Current Visit: No Status: Chronic Comment: with chronic insomnia- refuses psychiatry evaluation (7) HIV (human immunodeficiency virus infection) Current Visit: Yes Status: Chronic Qualifiers: HIV symptom status: asymptomatic Qualified Code(s): Z21 - Asymptomatic human immunodeficiency virus [HIV] infection status Comment: alida Cleared for Admission S - Detox or Rehab [facility] Level of Care: Medically Managed Detox Regimen/Protocol: Methadone/Valium Claeared for Rehab Admission: No Breathalyzer - Breathalyzer Breathalyzer: 0 Urine Drug Screen - Test Device Lot number: [id number] Expiration date: 10/18/21 - Control Is test valid?: Yes - Results Drug screen NEGATIVE: No Urine drug screen results: MOP-Opiates, BZO-Benzodiazepines Inpatient Rehab Admission - Rehab Decision to Admit Inpatient rehab admission?: No
[2019-12-31] MEDS ORDERED: MAGNESIUM CITRATE 300 ML BOTTLE PO PRN (21:48)
[2019-12-31] MEDS ORDERED: hydrOXYzine PAMOATE 25 MG CAPSULE (FP) PO PRN (21:48)
[2019-12-31] MEDS ORDERED: MELATONIN 5 MG TABLETS PO PRN (21:48)
[2019-12-31] MEDS ORDERED: MENTHOL/PHENOL 1 EACH UD MM PRN (21:48)
[2019-12-31] MEDS ORDERED: BISMUTH SUBSALICYLATE 524 MG/30 ML UD PO PRN (21:48)
[2019-12-31] MEDS ORDERED: MAG HYDROX/AL HYDROX/SIMETH 30 ML UNIT-DOSE CUP PO PRN (21:48)
[2019-12-31] MEDS ORDERED: MAGNESIUM HYDROX 2400MG/30ML ORAL SUSPENSION 30 ML CUP PO PRN (21:48)
[2019-12-31] MEDS ORDERED: IBUPROFEN 400 MG TABLET (FP) PO PRN (21:48)
[2019-12-31] MEDS ORDERED: ACETAMINOPHEN 325 MG TABLET (FP) PO PRN ×2 (21:48)
[2019-12-31] MEDS ORDERED: cloNIDine HCL 0.1 MG TABLET PO PRN (21:50)
[2019-12-31] MEDS ORDERED: METHADONE HCL 10 MG TABLET (FOR DETOX USE ONLY) PO ONE (22:15)
[2019-12-31] MEDS: diazePAM 5 MG TABLET PO SCH (22:41)
[2019-12-31] MEDS: THIAMINE HCL 100 MG TABLET (FP) PO SCH (22:41)
[2020-01-01] MEDS: diazePAM 5 MG TABLET PO PRN ×3 (01:21→17:28)
[2020-01-01] MEDS: diazePAM 5 MG TABLET PO SCH ×3 (05:47→22:32)
[2020-01-01 09:48] LABS: HEMATOCRIT 39.9 % (35.4-49); HEMOGLOBIN 13.5 GM/dL (11.7-16.9); MCH 34.1 pg (25.7-33.7); MCHC 33.8 g/dl (32.0-35.9); MEAN CELL VOLUME 100.9 fl (80-96); MEAN PLT VOLUME 7.7 fl (7.5-11.1); PLATELET COUNT 360 K/MM3 (134-434); RBC 3.96 M/mm3 (4.00-5.60); RDW 13.4 % (11.9-15.9); WHITE BLOOD COUNT 3.6 K/mm3 (4.0-10.0)
[2020-01-01] MEDS ORDERED: PATIENT'S OWN MEDICATION (NON-FORMULARY) (Bictegrav/Emtricit/Tenofov Ala 1 EACH) PO SCH (10:00)
[2020-01-01] MEDS ORDERED: BICTEGRAV/EMTRICIT/TENOFOV (BIKTARVY) 50-200-25 MG TABLET PO SCH (10:00)
[2020-01-01] MEDS ORDERED: PRENATAL VITAMINS W/ FOLIC ACID TABLET (FP) PO SCH (10:00)
[2020-01-01] MEDS ORDERED: METHADONE HCL 5 MG TABLET (FOR DETOX USE ONLY) PO ONE (10:00)
[2020-01-01] MEDS: METHOCARBAMOL 500 MG TABLET PO PRN ×2 (10:06→17:28)
[2020-01-01 10:14] LABS: ALBUMIN 3.4 g/dl (3.4-5.0); BILIRUBIN,TOTAL 0.8 mg/dL (0.2-1); BLOOD UREA NITROGEN 17.8 mg/dL (7-18); CALCIUM 8.9 mg/dL (8.5-10.1); CREATININE 1.4 mg/dL (0.55-1.3); POTASSIUM 4.2 mmol/L (3.5-5.1); TOT PROT 6.8 g/dl (6.4-8.2)
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
--- NOTE | 2020-01-01 11:10 | PN ---
[facility] CIWA - CIWA Score Nausea/Vomitin-Mild Nausea/No Vomiting Muscle Tremors: 4-Moderate,w/Arms Extend Anxiety: 4-Mod. Anxious/Guarded Agitation: 1-Slight > Activity Paroxysmal Sweats: 2 Orientation: 0-Oriented Tacttile Disturbances: 0-None Auditory Disturbances: 0-None Visual Disturbances: 1-Very Mild Sensitivity Headache: 1-Very Mild CIWA-Ar Total Score: 14 S COWS - Scale Resting Pulse: 1= [place] 81-100 Sweatin= Chills/Flushing Restless Observation: 0= Sits Still Pupil Size: 1= Pupils >than Normal Bone or Joint Aches: 1= Mild Discomfort Runny Nose/ Eye Tearin= Nasal Congestion GI Upset > 30mins: 2= Nausea/Diarrhea Tremor Observation of Outstretched Hands: 2= Slight Tremor Visible Yawning Observation: 0= None Anxiety or Irritability: 2=Irritable/Anxious Goose Flesh Skin: 3=Piloerection COWS Score: 14 S Progress Note (SOAP) Subjective: 29 years old male admitted on 12/31/19 for alcohol benzo opiate withdrawal sx management treating with valium and methadone detox regiments Mr Gaitan states that his mother is in [address] and he has psychiatrist appointment today at the [facility] treated for anxiety and depression reassure the patient that detox in patient psychiatrist will visit the patient today and continue psychotropic medication if necessary Objective: 01/01/20 11:09 Vital Signs Temperature 97.5 F L 01/01/20 08:40 Pulse Rate 83 01/01/20 08:40 Respiratory Rate 18 01/01/20 08:40 Blood Pressure 98/67 01/01/20 08:40 O2 Sat by Pulse Oximetry (%) Laboratory Last Values WBC 3.6 K/mm3 (4.0-10.0) L 01/01/20 07:30 RBC 3.96 M/mm3 (4.00-5.60) L 01/01/20 07:30 Hgb 13.5 GM/dL (11.7-16.9) 01/01/20 07:30 Hct 39.9 % (35.4-49) 01/01/20 07:30 MCV 100.9 fl (80-96) H 01/01/20 07:30 MCH 34.1 pg (25.7-33.7) H 01/01/20 07:30 MCHC 33.8 g/dl (32.0-35.9) 01/01/20 07:30 RDW 13.4 % (11.9-15.9) 01/01/20 07:30 Plt Count 360 K/MM3 (134-434) D 01/01/20 07:30 MPV 7.7 fl (7.5-11.1) 01/01/20 07:30 Sodium 139 mmol/L (136-145) 01/01/20 07:30 Potassium 4.2 mmol/L (3.5-5.1) 01/01/20 07:30 Chloride 105 mmol/L (98-107) 01/01/20 07:30 Carbon Dioxide 28 mmol/L (21-32) 01/01/20 07:30 Anion Gap 6 MMOL/L (8-16) L 01/01/20 07:30 BUN 17.8 mg/dL (7-18) 01/01/20 07:30 Creatinine 1.4 mg/dL (0.55-1.3) H 01/01/20 07:30 Est GFR (CKD-EPI)AfAm 77.04 01/01/20 07:30 Est GFR (CKD-EPI)NonAf 66.47 01/01/20 07:30 Random Glucose 76 mg/dL (74-106) 01/01/20 07:30 Calcium 8.9 mg/dL (8.5-10.1) 01/01/20 07:30 Total Bilirubin 0.8 mg/dL (0.2-1) 01/01/20 07:30 AST 20 U/L (15-37) 01/01/20 07:30 ALT 18 U/L (13-61) 01/01/20 07:30 Alkaline Phosphatase 115 U/L (45-117) 01/01/20 07:30 Total Protein 6.8 g/dl (6.4-8.2) 01/01/20 07:30 Albumin 3.4 g/dl (3.4-5.0) 01/01/20 07:30 lab noted Assessment: 01/01/20 11:10 alcohol benzo opiate withdrawal Plan: valium and methadone regiments
[2020-01-01] MEDS: hydrOXYzine PAMOATE 25 MG CAPSULE (FP) PO PRN ×2 (12:02→17:28)
[2020-01-01] MEDS ORDERED: GABAPENTIN 100 MG CAPSULE PO SCH (14:00)
[2020-01-01] MEDS: GABAPENTIN 300 MG CAPSULE PO SCH ×3 (14:03→22:32)
--- NOTE | 2020-01-01 15:17 | EKG ---
Test Reason : Blood Pressure : / mmHG Vent. Rate : 074 BPM Atrial Rate : 074 BPM P-R Int : 160 ms QRS Dur : 094 ms QT Int : 362 ms P-R-T Axes : 052 025 032 degrees QTc Int : 401 ms NORMAL SINUS RHYTHM NORMAL ECG WHEN COMPARED WITH ECG OF 28-DEC-2019 16:47, NO SIGNIFICANT CHANGE WAS FOUND Confirmed by MELL GEORGES MD ([id number]) on 01/01/2020 3:16:52 PM Referred By: Oleg Salinas Confirmed By:MELL GEORGES MD
--- NOTE | 2020-01-01 16:09 | PN ---
Psychiatric Progress Note Vital Signs: Vital Signs Period Temp Pulse Resp BP Sys/Deng Pulse Ox Last 24 Hr 97.1 F-98.8 F 66-114 18-18 98-126/64-86 Date of Session: 01/01/20 Chief Complaint:: "I'm still anxious. I feel like i'm panicking HPI: Patient admitted to for alcohol, opiate, and benodiazepine dependence. ROS: Patient anxious and restless. Current Medications: Active Medications Generic Name Dose Route Start Last Admin Trade Name Freq PRN Reason Stop Dose Admin Acetaminophen 650 mg 12/31/19 21:48 Tylenol - PO Q6H PRN PAIN LEVEL 4 - 6 Acetaminophen 650 mg 12/31/19 21:48 12/31/19 22:42 Tylenol - PO 650 mg Q6H PRN Administration FEVER Al Hydroxide/Mg Hydroxide 30 ml 12/31/19 21:48 Mylanta Oral Suspension - PO Q6H PRN DYSPEPSIA Bictegravir/Emtricitabine/Tenofovir 1 each 01/01/20 10:00 01/01/20 15:55 Biktarvy 50-200-25 Mg Tablet PO 1 each DAILY RERE Administration Bismuth Subsalicylate 524 mg 12/31/19 21:48 Pepto-Bismol - PO Q1H PRN DIARRHEA Clonidine 0.1 mg 12/31/19 21:50 Catapres - PO 01/01/20 23:59 Q4H PRN Withdrawal Symptoms Diazepam 5 mg 12/31/19 22:00 01/01/20 14:03 Valium - PO 01/01/20 22:01 5 mg TID RERE Administration Diazepam 5 mg 01/02/20 06:00 Valium - PO 01/02/20 18:01 Q12H RERE Diazepam 5 mg 01/03/20 06:00 Valium - PO 01/03/20 06:01 ONCE ONE Diazepam 10 mg 12/31/19 21:50 01/01/20 10:08 Valium - PO 01/03/20 21:49 10 mg Q4H PRN Administration WITHDRAWAL(CONT SUBST) Eucalyptus/Menthol/Phenol/Sorbitol 1 each 12/31/19 21:48 Cepastat Lozenge - MM 01/06/20 21:48 Q4H PRN SORE THROAT Gabapentin 300 mg 01/01/20 12:00 01/01/20 14:03 Neurontin - PO 300 mg TID RERE Administration Hydroxyzine Pamoate 50 mg 01/01/20 11:05 01/01/20 12:02 Vistaril - PO 01/06/20 21:48 50 mg Q6H PRN Administration For Anxiety Ibuprofen 400 mg 12/31/19 21:48 Motrin - PO Q6H PRN PAIN LEVEL 1 - 3 Magnesium Citrate 300 ml 12/31/19 21:48 Citroma - PO Q48H PRN CONSTIPATION Magnesium Hydroxide 30 ml 12/31/19 21:48 Milk Of Magnesia - PO PRN PRN CONSTIPATION Melatonin 5 mg 12/31/19 21:48 12/31/19 22:44 Melatonin PO 5 mg HS PRN Administration INSOMNIA Methadone HCl 10 mg 01/02/20 10:00 Dolophine - PO 01/02/20 10:01 ONCE ONE Methadone HCl 5 mg 01/03/20 06:00 Dolophine - PO 01/03/20 06:01 ONCE ONE Methocarbamol 500 mg 12/31/19 21:48 01/01/20 10:06 Robaxin - PO 01/06/20 21:48 500 mg Q6H PRN Administration MUSCLE SPASMS Multivit/Folic Acid/Iron 1 tab 01/01/20 10:00 01/01/20 10:05 Vitamins (Sjr) - PO 1 tab DAILY RERE Administration Suvorexant 10 mg 01/01/20 22:00 Belsomra PO HS PRN INSOMNIA Thiamine HCl 100 mg 12/31/19 22:00 12/31/19 22:41 Vitamin B1 - PO 100 mg HS RERE Administration Medication(s) Change(s): Yes. One time dose of Doxepin 25mg Current Side Effect: No Lab tests ordered: No Lab tests reviewed: Yes Provider note:: Patient is restless and anxious. States that he has a history of anxiety disorder that has not been treated in the past. Patient orderd vistaril 50mg q6h + Gabapentin 300mg TID. Patient has received both medication today in addition to valium and continues to report anxiety. Patient states that he usually purchases xanax on the streets. Patient made aware that xanax is not prescribed in detox. Alternative options discussed: seroquel, trazodone, benadryl, buspar (states none have been effective). Patient also states that his anxiety is worsening as he has not been able to contact his mother who is currently receiving treatment in detox on [address]. Patient observed walking to and from the nurses station c/o anxiety. Will order one time dose of doxepin 25mg. Benefits and side effects discussed. Verbal consent given. Total face to face time:: 25 Mental Status Exam - Mental Status Exam Alert and Oriented to: Time, Place, Person Cognitive Function: Good Patient Appearance: Well Groomed Mood: Withdrawn, Anxious Affect: Mood Congruent Patient Behavior: Fatigued, Cooperative Speech Pattern: Appropriate Voice Loudness: Mildly Soft/Quiet Thought Process: Goal Oriented Thought Disorder: Not Present Hallucinations: Denies Suicidal Ideation: Denies Homicidal Ideation: Denies Insight/Judgement: Poor Sleep: Poorly Appetite: Fair Muscle strength/Tone: Normal Gait/Station: Normal Psychiatric Treatment Plan - Problem List (1) Alcohol dependence, uncomplicated Current Visit: Yes (2) Opiate dependence Current Visit: Yes Qualifiers: Substance use status: uncomplicated Qualified Code(s): F11.20 - Opioid dependence, uncomplicated (3) Anxiety disorder Current Visit: Yes (4) Substance-induced sleep disorder Current Visit: Yes (5) Depressive disorder Current Visit: No (6) Substance-induced anxiety disorder Current Visit: Yes
[2020-01-01 21:55] VITALS: BP 110/62; PULSE 68; TEMP 97.7
[2020-01-01] MEDS ORDERED: SUVOREXANT 10 MG TABLET PO PRN (22:00)
[2020-01-01] MEDS: THIAMINE HCL 100 MG TABLET (FP) PO SCH (22:32)
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
[2020-01-02] MEDS ORDERED: diazePAM 5 MG TABLET PO SCH (06:00)
[2020-01-02] MEDS ORDERED: METHADONE HCL 10 MG TABLET (FOR DETOX USE ONLY) PO ONE (10:00)
[2020-01-02] MEDS ORDERED: DOXEPIN HCL 25 MG CAPSULE PO ONE (17:00)
[2020-01-03] MEDS ORDERED: diazePAM 5 MG TABLET PO ONE (06:00)
[2020-01-03] MEDS ORDERED: METHADONE HCL 5 MG TABLET (FOR DETOX USE ONLY) PO ONE (06:00)
== END 2020-01-01 23:45 | disposition left against medical advice (07) | DRG 770 ==
LOC: YASAS 19:50 → Y3N 22:09
PROVIDERS: ADMIT Allergy & Immunology; ATTEND Allergy & Immunology
PROC: HZ2ZZZZ Detoxification Services for Substance Abuse Treatment (ICD-10-PCS; principal; 2019-12-31)
DX: F10.230 Alcohol dependence with withdrawal, uncomplicated (principal); F11.23 Opioid dependence with withdrawal; F13.230 Sedative, hypnotic or anxiolytic dependence with withdrawal, uncomplicated; F14.20 Cocaine dependence, uncomplicated; F19.282 Other psychoactive substance dependence with psychoactive substance-induced sleep disorder; F19.280 Other psychoactive substance dependence with psychoactive substance-induced anxiety disorder; F32.9 Major depressive disorder, single episode, unspecified; Z21 Asymptomatic human immunodeficiency virus [HIV] infection status; J18.9 Pneumonia, unspecified organism; J45.909 Unspecified asthma, uncomplicated; R76.11 Nonspecific reaction to tuberculin skin test without active tuberculosis; Z86.69 Personal history of other diseases of the nervous system and sense organs; Z88.2 Allergy status to sulfonamides; Z91.5 Personal history of self-harm
CPT/HCPCS: 36415; 80053; 85027; 86593; 93005; 93010

== ENCOUNTER 2020-01-07 19:46 | Inpatient (IN) | payer OTHER ==
--- NOTE | 2020-01-07 20:17 | BHS.RME ---
COWS - Scale Resting Pulse: 1= [place] 81-100 Sweatin=Flushed/Facial Moisture Restless Observation: 0= Sits Still Pupil Size: 1= Pupils >than Normal Bone or Joint Aches: 2= Severe Diffuse Aches Runny Nose/ Eye Tearin= Nasal Congestion GI Upset > 30mins: 2= Nausea/Diarrhea (diarrhea x 2) Tremor Observation: 2= Slight Tremor Visible Yawning Observation: 1= 1-2x During Session Anxiety or Irritability: 4=Extreme Anxiety Goose Flesh Skin: 0=Smooth Skin COWS Score: 16 CIWA Nausea/Vomitin Muscle Tremors: 3 Anxiety: 3 Agitation: 4-Moderately Restless Paroxysmal Sweats: 2 Orientation: 0-Oriented Tacttile Disturbances: 0-None Auditory Disturbances: 0-None Visual Disturbances: 0-None Headache: 0-None Present CIWA-Ar Total Score: 14
--- NOTE | 2020-01-07 20:36 | HP ---
COWS - Scale Resting Pulse: 1= [place] 81-100 Sweatin=Flushed/Facial Moisture Restless Observation: 0= Sits Still Pupil Size: 1= Pupils >than Normal Bone or Joint Aches: 2= Severe Diffuse Aches Runny Nose/ Eye Tearin= Nasal Congestion GI Upset > 30mins: 2= Nausea/Diarrhea (diarrhea x 2) Tremor Observation: 2= Slight Tremor Visible Yawning Observation: 1= 1-2x During Session Anxiety or Irritability: 4=Extreme Anxiety Goose Flesh Skin: 0=Smooth Skin COWS Score: 16 CIWA Score Nausea/Vomitin Muscle Tremors: 3 Anxiety: 3 Agitation: 4-Moderately Restless Paroxysmal Sweats: 2 Orientation: 0-Oriented Tacttile Disturbances: 0-None Auditory Disturbances: 0-None Visual Disturbances: 0-None Headache: 0-None Present CIWA-Ar Total Score: 14 - Admission Criteria [facility]ASAS Guidelines: Admission for Medically Managed Detox: Requires at least one of the followin. CIWA greater than 12 2. Seizures within the past 24 hours 3. Delirium tremens within the past 24 hours 4. Hallucinations within the past 24 hours 5. Acute intervention needed for co occurring medical disorder 6. Acute intervention needed for co occurring psychiatric disorder 7. Severe withdrawal that cannot be handled at a lower level of care (continued vomiting, continued diarrhea, abnormal vital signs) requiring intravenous medication and/or fluids 8. Admitting History and Physical - Past Medical History [facility] [employer] [employer]: Yes: Other (ANXIETY DISORDER) Pulmonary: Yes: Asthma Psych: Yes: Anxiety, Panic - Past Surgical History Past Surgical History: Yes: None - Smoking History Smoking history: Never smoked Have you smoked in the past 12 months: No - Alcohol/Substance Use Hx Alcohol Use: Yes History of Substance Use: reports: None - Social History History of Recent Travel: No Admission [facility] Chief Complaint: Alcohol and benzo. withdrawal symptoms Allergies/Adverse Reactions: Allergies Allergy/AdvReac Type Severity Reaction Status Date / Time sulfamethoxazole Allergy Intermediate Rash Verified 01/07/20 21:12 [From Bactrim] trimethoprim [From Bactrim] Allergy Intermediate Rash Verified 01/07/20 21:12 History of Present Illness: 29 years old male with 5 years of heroin and benzo. dependence is seeking admission to detox. Patient left against medical advice in his 2 prior admissions. He was seen by the counselor today and he signed a contract to complete this admission. Patient was informed by the counselor that his chance of being admitted next time may be dependent on his ability utilize the opportunity to get the help he needed and complete his detoxification. Patient verbalized understanding of instructions and strongly affirmed that he will completed this admission. He has medical history of HIV+, seizures, asthma and psych. history of depression. He reports suicide attempt at age 4 and denies suicidal ideation at this time. 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 He reports that he is employed and lives with his family. Exam Limitations: No Limitations - Ebola screening Have you traveled outside of the country in the last 21 days: No Have you had contact with anyone from an Ebola affected area: No Do you have a fever: No - Review of Systems Constitutional: Chills, Loss of Appetite, Malaise, Night Sweats, Changes in sleep EENT: reports: No Symptoms Reported Respiratory: reports: No Symptoms reported Cardiac: reports: No Symptoms Reported GI: reports: Diarrhea, Nausea, Poor Appetite, Poor Fluid Intake, Abdominal cramping : reports: No Symptoms Reported Musculoskeletal: reports: Back Pain, Neck Pain, Other (bilateral lower extremities) Integumentary: reports: Dryness, Flushing Neuro: reports: Tremors Endocrine: reports: No Symptoms Reported Hematology: reports: No Symptoms Reported Psychiatric: reports: Mood/Affect Appropiate, Anxious, Depressed Other Systems: Reviewed and Negative Patient History - Patient Medical History Hx Anemia: No Hx Asthma: Yes (Albuterol) Hx Chronic Obstructive Pulmonary Disease (COPD): No Hx Cancer: No Hx Cardiac Disorders: No Hx Congestive Heart Failure: No Hx Hypertension: No Hx Hypercholesterolemia: No Hx Pacemaker: No HX Cerebrovascular Accident: No Hx Seizures: Yes (APRIL 2019) Hx Dementia: No Hx Diabetes: No Hx Gastrointestinal Disorders: No Hx Liver Disease: No Hx Genitourinary Disorders: No Hx Sexually Transmitted Disorders: No Hx Renal Disease (ESRD): No Hx Thyroid Disease: No Hx Human Immunodeficiency Virus (HIV): Yes (Bictegrav/Emtricit/Tenofov Ala [ Biktarvy 50-200-25 mg Tablet]) Hx Hepatitis C: No Hx Depression: Yes (Not on medication) Hx Suicide Attempt: Yes (Attempt at age 4, denies suicidal ideation at this time ) Hx Bipolar Disorder: No Hx Schizophrenia: No Other Medical History: Anxiety - Patient Surgical History Past Surgical History: No Hx Neurologic Surgery: No Hx Cataract Extraction: No Hx Cardiac Surgery: No Hx Lung Surgery: No Hx Abdominal Surgery: No Hx Appendectomy: No Hx Cholecystectomy: No Hx Genitourinary Surgery: No Hx Orthopedic Surgery: No Anesthesia Reaction: No (NEVER HAD ANESTHESIA) - PPD History Previous Implant?: Yes Documented Results: Negative w/proof Implanted On Prior [facility] Admission?: Yes Date: 12/30/19 PPD to be Administered?: No - Reproductive History Patient is a Female of Child Bearing Age (11 -55 yrs old): No (Male) - Smoking Cessation Smoking history: Former smoker Have you smoked in the past 12 months: No Hx Chewing Tobacco Use: No Initiated information on smoking cessation: No - Substance & Tx. History Hx Alcohol Use: No Hx Substance Use: Yes Substance Use Type: Cocaine, Heroin, Opiates, Tranquilizers Hx Substance Use Treatment: Yes ([facility]) - Substances abused Heroin Substance route: Inhalation Frequency: Daily Amount used: 4-6bags Age of first use: 23 Date of last use: 01/06/20 Alprazolam (Xanax) Substance route: Inhalation Frequency: Daily Amount used: 4mg Age of first use: 23 Date of last use: 01/05/20 Cocaine Substance route: Inhalation Frequency: 1-2 times per week Amount used: $100/day Age of first use: 23 Date of last use: 01/05/20 Admission Physical Exam [facility] Physical General Appearance: Yes: Moderate Distress, Tremorous, Irritable, Anxious HEENTM: Yes: Within Normal Limits Respiratory: Yes: Lungs Clear, Normal Breath Sounds, No Respiratory Distress Neck: Yes: Within Normal Limits Breast: Yes: Breast Exam Deferred Cardiology: Yes: Within Normal Limits Abdominal: Yes: Normal Bowel Sounds, Soft Genitourinary: Yes: Within Normal Limits Back: Yes: Normal Inspection Musculoskeletal: Yes: Back pain, Muscle Pain, Other (bilateral lower extremities ) Extremities: Yes: Tremors Neurological: Yes: Within Normal Limits, Alert, Motor Strength 5/5, Normal Mood/ Affect, Normal Response Integumentary: Yes: Dry Lymphatic: Yes: Within Normal Limits - Diagnostic (1) Opioid dependence with withdrawal Current Visit: Yes Status: Acute (2) Sedative, hypnotic or anxiolytic dependence with withdrawal, uncomplicated Current Visit: Yes Status: Acute (3) Seizure Current Visit: No Status: Chronic Comment: no further seizures refuses further neurology workup or evaluation (4) Anxiety Current Visit: Yes Status: Chronic Comment: with chronic insomnia- refuses psychiatry evaluation (5) Asthma Current Visit: Yes Status: Chronic Qualifiers: Asthma persistence: unspecified Asthma complication type: unspecified (6) Depressive disorder Current Visit: Yes Status: Chronic (7) HIV (human immunodeficiency virus infection) Current Visit: Yes Status: Chronic Qualifiers: HIV symptom status: asymptomatic Qualified Code(s): Z21 - Asymptomatic human immunodeficiency virus [HIV] infection status Comment: alida Cleared for Admission [facility] - Detox or Rehab [facility] Level of Care: Medically Managed Detox Regimen/Protocol: Methadone/Valium Claeared for Rehab Admission: No Breathalyzer - Breathalyzer Breathalyzer: 0 Urine Drug Screen - Test Device Lot number: [id number] Expiration date: 10/18/21 - Control Is test valid?: Yes - Results Drug screen NEGATIVE: No Urine drug screen results: ALIX-Cocaine, MOP-Opiates, MTD-Methadone, BZO- Benzodiazepines Inpatient Rehab Admission - Rehab Decision to Admit Inpatient rehab admission?: No
[2020-01-07 21:19] VITALS: BMI 25.2
[2020-01-07] MEDS ORDERED: MELATONIN 5 MG TABLETS PO PRN (21:45)
[2020-01-07] MEDS ORDERED: MAG HYDROX/AL HYDROX/SIMETH 30 ML UNIT-DOSE CUP PO PRN (21:45)
[2020-01-07] MEDS ORDERED: ACETAMINOPHEN 325 MG TABLET (FP) PO PRN ×2 (21:45)
[2020-01-07] MEDS ORDERED: METHADONE HCL 10 MG TABLET (FOR DETOX USE ONLY) PO ONE (21:45)
[2020-01-07] MEDS ORDERED: cloNIDine HCL 0.1 MG TABLET PO PRN (21:45)
[2020-01-07] MEDS ORDERED: MENTHOL/PHENOL 1 EACH UD MM PRN (21:45)
[2020-01-07] MEDS ORDERED: MAGNESIUM HYDROX 2400MG/30ML ORAL SUSPENSION 30 ML CUP PO PRN (21:45)
[2020-01-07] MEDS ORDERED: BISMUTH SUBSALICYLATE 524 MG/30 ML UD PO PRN (21:45)
[2020-01-07] MEDS ORDERED: MAGNESIUM CITRATE 300 ML BOTTLE PO PRN (21:45)
[2020-01-07] MEDS ORDERED: IBUPROFEN 400 MG TABLET (FP) PO PRN (21:45)
[2020-01-07] MEDS: diazePAM 5 MG TABLET PO SCH (22:25)
[2020-01-07] MEDS: THIAMINE HCL 100 MG TABLET (FP) PO SCH (22:27)
[2020-01-08] MEDS: diazePAM 5 MG TABLET PO PRN ×2 (01:56→10:14)
[2020-01-08] MEDS: METHOCARBAMOL 500 MG TABLET PO PRN ×2 (01:56→10:15)
[2020-01-08] MEDS: diazePAM 5 MG TABLET PO SCH ×3 (06:18→22:01)
[2020-01-08 09:47] LABS: HEMATOCRIT 37.6 % (35.4-49); HEMOGLOBIN 12.7 GM/dL (11.7-16.9); MCH 33.5 pg (25.7-33.7); MCHC 33.8 g/dl (32.0-35.9); MEAN CELL VOLUME 99.1 fl (80-96); MEAN PLT VOLUME 7.9 fl (7.5-11.1); PLATELET COUNT 325 K/MM3 (134-434); RDW 13.2 % (11.9-15.9); WHITE BLOOD COUNT 3.6 K/mm3 (4.0-10.0)
[2020-01-08] MEDS ORDERED: METHADONE HCL 5 MG TABLET (FOR DETOX USE ONLY) PO ONE (10:00)
[2020-01-08] MEDS ORDERED: PRENATAL VITAMINS W/ FOLIC ACID TABLET (FP) PO SCH (10:00)
[2020-01-08 10:13] LABS: ALBUMIN 3.5 g/dl (3.4-5.0); BILIRUBIN,TOTAL 0.5 mg/dL (0.2-1); BLOOD UREA NITROGEN 16.2 mg/dL (7-18); CALCIUM 9.1 mg/dL (8.5-10.1); CREATININE 1.2 mg/dL (0.55-1.3); POTASSIUM 3.9 mmol/L (3.5-5.1); TOT PROT 7.1 g/dl (6.4-8.2)
[2020-01-08] MEDS ORDERED: BICTEGRAV/EMTRICIT/TENOFOV (BIKTARVY) 50-200-25 MG TABLET PO SCH (10:45)
[2020-01-08] MEDS ORDERED: hydrOXYzine PAMOATE 50 MG CAPSULE (FP) PO PRN (11:42)
--- NOTE | 2020-01-08 11:48 | CONSULT ---
[facility] Psychiatric Consult - Data Date of interview: 01/08/20 Admission source: [facility] Identifying data: Patient is a 29 year old single Black male, without children, domiciled and currently employed ( home health aid). This is one of multiple admissions for patient. Patient admitted to for alcohol, cocaine, and opiate dependence. Substance Abuse History: Smoking Cessation. Smoking history: Former smoker. Have you smoked in the past 12 months: No. Hx Chewing Tobacco Use: No. Initiated information on smoking cessation: No. - Substance & Tx. History. Hx Alcohol Use: No. Hx Substance Use: Yes. Substance Use Type: Cocaine, Heroin, Opiates, Tranquilizers. Hx Substance Use Treatment: Yes ([facility]). - Substances abused. Heroin. Substance route: Inhalation. Frequency: Daily. Amount used: 4-6bags. Age of first use: 23. Date of last use: 01/06/20. Alprazolam (Xanax). Substance route: Inhalation. Frequency: Daily. Amount used: 4mg. Age of first use: 23. Date of last use: 01/05/20. Cocaine. Substance route: Inhalation. Frequency: 1-2 times per week. Amount used: $100/ day. Age of first use: 23. Date of last use: 01/05/20 Medical History: HIV+, seizures, asthma Psychiatric History: Patient's first psychiatric contact was at 11 years of age after seeing a private psychiatrist in [place], [place] due to depression and anxiety. He was diagnosed with ADHD and anxiey disorder and prescribed gabapentin + Adderral but states that he was noncompliant with the medication regiman. Mr. Gaitan reports history of two psychiatric hospitalization as a teenager at [facility] division for agressive/violent behavior and suicidal ideation (unable to recall medications prescribed). He denies history of suicide attempt. As an adult Mr. Gaitan has not seen a psychiatric provider. Mr. Gaitan reports history of uncontrolled anxiety which has led to tremors and panic attacks. He reports difficulty being in crowds and leaving his home. States that he has also battled depression throughout the years due to the passing of his grandmother four years ago (states that his grandmother raised him), and the of his father and sister one year ago. At present patient reports anxiety and difficulty sleeping. Physical/Sexual Abuse/Trauma History: denies. Mental Status Exam - Mental Status Exam Alert and Oriented to: Time, Place, Person Cognitive Function: Good Patient Appearance: Well Groomed Mood: Anxious Affect: Mood Congruent Patient Behavior: Cooperative Speech Pattern: Appropriate Voice Loudness: Normal Thought Process: Goal Oriented Thought Disorder: Not Present Hallucinations: Denies Suicidal Ideation: Denies Homicidal Ideation: Denies Insight/Judgement: Poor Sleep: Poorly Appetite: Fair Muscle strength/Tone: Normal Gait/Station: Normal Psychiatric Findings - Problem List ([place] 1, 2,3) (1) Opioid dependence with withdrawal Current Visit: Yes Status: Acute (2) Substance-induced anxiety disorder Current Visit: Yes Status: Acute (3) Substance-induced sleep disorder Current Visit: Yes Status: Acute (4) Anxiety disorder Current Visit: Yes Status: Chronic (5) Substance induced mood disorder Current Visit: Yes Status: Acute - Initial Treatment Plan Initial Treatment Plan: Psychoeducation provided. Detoxification in progress. Will order Gabapentin 300mg TID + Vistaril 50mg q6h + Remeron 7.5mg HS. Benefits and side effects discussed. Verbal consent given.
--- NOTE | 2020-01-08 11:59 | PN ---
[facility] CIWA - CIWA Score Nausea/Vomitin-Mild Nausea/No Vomiting Muscle Tremors: 4-Moderate,w/Arms Extend Anxiety: 4-Mod. Anxious/Guarded Agitation: 1-Slight > Activity Paroxysmal Sweats: 2 Orientation: 0-Oriented Tacttile Disturbances: 0-None Auditory Disturbances: 0-None Visual Disturbances: 1-Very Mild Sensitivity Headache: 0-None Present CIWA-Ar Total Score: 13 BHS COWS - Scale Resting Pulse: 0= [place] 80 or Below Sweatin= Chills/Flushing Restless Observation: 0= Sits Still Pupil Size: 1= Pupils >than Normal Bone or Joint Aches: 2= Severe Diffuse Aches Runny Nose/ Eye Tearin= None GI Upset > 30mins: 2= Nausea/Diarrhea Tremor Observation of Outstretched Hands: 2= Slight Tremor Visible Yawning Observation: 0= None Anxiety or Irritability: 2=Irritable/Anxious Goose Flesh Skin: 3=Piloerection COWS Score: 13 S Progress Note (SOAP) Subjective: 29 years old male admitted on 01/07/20 for benzo and opiate withdrawal sx management treating with valium and methadone detox regiments reports trouble sleep at night belsomra 10 mg po hs x 1 requests biktarvey lyric writer call preferred pharmacy [phone] that the patient is taking biktarvey since 2018 last fill 30 days on 12/19/19 with two refills order biktarvey po daily Objective: 01/08/20 12:35 Vital Signs Temperature 97.6 F 01/08/20 08:35 Pulse Rate 68 01/08/20 08:35 Respiratory Rate 18 01/08/20 08:35 Blood Pressure 117/77 01/08/20 08:35 O2 Sat by Pulse Oximetry (%) Laboratory Last Values WBC 3.6 K/mm3 (4.0-10.0) L 01/08/20 07:30 RBC 3.80 M/mm3 (4.00-5.60) L 01/08/20 07:30 Hgb 12.7 GM/dL (11.7-16.9) 01/08/20 07:30 Hct 37.6 % (35.4-49) 01/08/20 07:30 MCV 99.1 fl (80-96) H 01/08/20 07:30 MCH 33.5 pg (25.7-33.7) 01/08/20 07:30 MCHC 33.8 g/dl (32.0-35.9) 01/08/20 07:30 RDW 13.2 % (11.9-15.9) 01/08/20 07:30 Plt Count 325 K/MM3 (134-434) 01/08/20 07:30 MPV 7.9 fl (7.5-11.1) 01/08/20 07:30 Sodium 139 mmol/L (136-145) 01/08/20 07:30 Potassium 3.9 mmol/L (3.5-5.1) 01/08/20 07:30 Chloride 106 mmol/L (98-107) 01/08/20 07:30 Carbon Dioxide 28 mmol/L (21-32) 01/08/20 07:30 Anion Gap 4 MMOL/L (8-16) L 01/08/20 07:30 BUN 16.2 mg/dL (7-18) 01/08/20 07:30 Creatinine 1.2 mg/dL (0.55-1.3) 01/08/20 07:30 Est GFR (CKD-EPI)AfAm 92.83 01/08/20 07:30 Est GFR (CKD-EPI)NonAf 80.09 01/08/20 07:30 Random Glucose 80 mg/dL (74-106) 01/08/20 07:30 Calcium 9.1 mg/dL (8.5-10.1) 01/08/20 07:30 Total Bilirubin 0.5 mg/dL (0.2-1) 01/08/20 07:30 AST 21 U/L (15-37) 01/08/20 07:30 ALT 26 U/L (13-61) 01/08/20 07:30 Alkaline Phosphatase 96 U/L (45-117) 01/08/20 07:30 Total Protein 7.1 g/dl (6.4-8.2) 01/08/20 07:30 Albumin 3.5 g/dl (3.4-5.0) 01/08/20 07:30 RPR Titer Nonreactive (NONREACTIVE) 01/08/20 07:30 lab noted Assessment: 01/08/20 12:35 benzo and opiate withdrawal Plan: valium and methadone regiments
[2020-01-08] MEDS: GABAPENTIN 300 MG CAPSULE PO SCH ×2 (13:46→22:01)
[2020-01-08] MEDS ORDERED: MIRTAZAPINE 15 MG TABLET (FP) PO SCH (22:00)
[2020-01-08] MEDS ORDERED: SUVOREXANT 10 MG TABLET PO ONE (22:00)
[2020-01-08] MEDS: THIAMINE HCL 100 MG TABLET (FP) PO SCH (22:02)
[2020-01-09] MEDS ORDERED: diazePAM 5 MG TABLET PO SCH (06:00)
[2020-01-09] MEDS: GABAPENTIN 300 MG CAPSULE PO SCH (06:04)
[2020-01-09 09:20] VITALS: BP 115/72; PULSE 68; TEMP 97.8
[2020-01-09] MEDS ORDERED: METHADONE HCL 10 MG TABLET (FOR DETOX USE ONLY) PO ONE (10:00)
--- NOTE | 2020-01-09 10:28 | PN ---
S CIWA - CIWA Score Nausea/Vomitin-Mild Nausea/No Vomiting Muscle Tremors: 2 Anxiety: 2 Agitation: 2 Paroxysmal Sweats: No Perspiration Orientation: 0-Oriented Tacttile Disturbances: 0-None Auditory Disturbances: 0-None Visual Disturbances: 0-None Headache: 1-Very Mild CIWA-Ar Total Score: 8 BHS Progress Note (SOAP) Subjective: alert,irritable,anxious,pain in body and back Objective: 01/09/20 10:27 Vital Signs Temperature 97.8 F 01/09/20 08:42 Pulse Rate 68 01/09/20 08:42 Respiratory Rate 16 01/09/20 08:42 Blood Pressure 115/72 01/09/20 08:42 O2 Sat by Pulse Oximetry (%) Assessment: 01/09/20 10:27 withdrawal symptom Plan: continue detox methadone and valium
--- NOTE | 2020-01-09 10:31 | PN ---
[facility] Progress Note Note: patient has personal issue,could not continue treatment,all attempts to convince patient to stay with no avail, signed release ama,seen by counselor,high risk of relapsing explained,patient understood,advise to call 911 if not feeling well
--- NOTE | 2020-01-09 10:33 | DS ---
[facility] Detox Discharge Summary Admission Date: 01/07/20 Discharge Date: 01/09/20 - History Present History: Opioid Dependence, Sedative Dependence Additional Comments: alert,oriented x 3 lung clear no abdominal pain ambulation on the unit patient signed release ama advised to call 911 if not feeling well time of discharge 35 mins Pertinent Past History: hiv - Physical Exam Results Vital Signs: Vital Signs Temperature 97.8 F 01/09/20 08:42 Pulse Rate 68 01/09/20 08:42 Respiratory Rate 16 01/09/20 08:42 Blood Pressure 115/72 01/09/20 08:42 O2 Sat by Pulse Oximetry (%) Pertinent Admission Physical Exam Findings: withdrawal signs and symptom Laboratory Last Values WBC 3.6 K/mm3 (4.0-10.0) L 01/08/20 07:30 RBC 3.80 M/mm3 (4.00-5.60) L 01/08/20 07:30 Hgb 12.7 GM/dL (11.7-16.9) 01/08/20 07:30 Hct 37.6 % (35.4-49) 01/08/20 07:30 MCV 99.1 fl (80-96) H 01/08/20 07:30 MCH 33.5 pg (25.7-33.7) 01/08/20 07:30 MCHC 33.8 g/dl (32.0-35.9) 01/08/20 07:30 RDW 13.2 % (11.9-15.9) 01/08/20 07:30 Plt Count 325 K/MM3 (134-434) 01/08/20 07:30 MPV 7.9 fl (7.5-11.1) 01/08/20 07:30 Sodium 139 mmol/L (136-145) 01/08/20 07:30 Potassium 3.9 mmol/L (3.5-5.1) 01/08/20 07:30 Chloride 106 mmol/L (98-107) 01/08/20 07:30 Carbon Dioxide 28 mmol/L (21-32) 01/08/20 07:30 Anion Gap 4 MMOL/L (8-16) L 01/08/20 07:30 BUN 16.2 mg/dL (7-18) 01/08/20 07:30 Creatinine 1.2 mg/dL (0.55-1.3) 01/08/20 07:30 Est GFR (CKD-EPI)AfAm 92.83 01/08/20 07:30 Est GFR (CKD-EPI)NonAf 80.09 01/08/20 07:30 Random Glucose 80 mg/dL (74-106) 01/08/20 07:30 Calcium 9.1 mg/dL (8.5-10.1) 01/08/20 07:30 Total Bilirubin 0.5 mg/dL (0.2-1) 01/08/20 07:30 AST 21 U/L (15-37) 01/08/20 07:30 ALT 26 U/L (13-61) 01/08/20 07:30 Alkaline Phosphatase 96 U/L (45-117) 01/08/20 07:30 Total Protein 7.1 g/dl (6.4-8.2) 01/08/20 07:30 Albumin 3.5 g/dl (3.4-5.0) 01/08/20 07:30 RPR Titer Nonreactive (NONREACTIVE) 01/08/20 07:30 - Medication Discharge Medications: Ambulatory Orders Bictegrav/Emtricit/Tenofov Ala [Biktarvy 50-200-25 mg Tablet] 1 each PO DAILY # 30 tablet 11/11/19 - Diagnosis (1) Opioid dependence with withdrawal Current Visit: Yes Status: Acute (2) Sedative, hypnotic or anxiolytic dependence with withdrawal, uncomplicated Current Visit: Yes Status: Acute (3) Asthma Current Visit: Yes Status: Chronic Qualifiers: Asthma persistence: unspecified Asthma complication type: unspecified (4) HIV (human immunodeficiency virus infection) Current Visit: Yes Status: Chronic Qualifiers: HIV symptom status: asymptomatic Qualified Code(s): Z21 - Asymptomatic human immunodeficiency virus [HIV] infection status - AMA Did Patient Leave Against Medical Advice: Yes
[2020-01-10] MEDS ORDERED: METHADONE HCL 5 MG TABLET (FOR DETOX USE ONLY) PO ONE (06:00)
[2020-01-10] MEDS ORDERED: diazePAM 5 MG TABLET PO ONE (06:00)
== END 2020-01-09 12:17 | disposition home or self-care (01) | DRG 773 ==
LOC: YASAS 19:46 → Y3N 20:22
PROVIDERS: ADMIT Allergy & Immunology; ATTEND Allergy & Immunology
PROC: HZ2ZZZZ Detoxification Services for Substance Abuse Treatment (ICD-10-PCS; principal; 2020-01-07)
DX: F11.23 Opioid dependence with withdrawal (principal); F13.230 Sedative, hypnotic or anxiolytic dependence with withdrawal, uncomplicated; F14.20 Cocaine dependence, uncomplicated; F19.280 Other psychoactive substance dependence with psychoactive substance-induced anxiety disorder; F19.282 Other psychoactive substance dependence with psychoactive substance-induced sleep disorder; F19.24 Other psychoactive substance dependence with psychoactive substance-induced mood disorder; F32.9 Major depressive disorder, single episode, unspecified; F41.8 Other specified anxiety disorders; F90.9 Attention-deficit hyperactivity disorder, unspecified type; B20 Human immunodeficiency virus [HIV] disease; Z91.5 Personal history of self-harm; Z88.2 Allergy status to sulfonamides
CPT/HCPCS: 36415; 80053; 85027; 86593

== ENCOUNTER 2020-10-28 11:57 | Inpatient (IN) | payer OTHER ==
[2020-10-28 12:29] VITALS: BMI 22.3
[2020-10-28] MEDS ORDERED: ALBUTEROL SO4 HFA INHALER IH PRN (17:06)
[2020-10-28] MEDS ORDERED: MAG HYDROX/AL HYDROX/SIMETH 30 ML UNIT-DOSE CUP PO PRN (17:07)
[2020-10-28] MEDS ORDERED: MAGNESIUM CITRATE 300 ML BOTTLE PO PRN (17:07)
[2020-10-28] MEDS ORDERED: P-EPHED 60MG/TRIPROLIDI 2.5MG TABLET PO PRN (17:07)
[2020-10-28] MEDS ORDERED: MAGNESIUM HYDROX 2400MG/30ML ORAL SUSPENSION 30 ML CUP PO PRN (17:07)
[2020-10-28] MEDS ORDERED: LOPERAMIDE HCL 2 MG CAPSULE PO PRN (17:07)
[2020-10-28] MEDS ORDERED: guaiFENesin 200 MG/10 ML 10 ML UNIT-DOSE CUPS PO PRN (17:07)
[2020-10-28] MEDS: NICOTINE 7 MG/24 HOURS TOPICAL PATCH TD SCH (18:32)
[2020-10-28] MEDS: hydrOXYzine PAMOATE 25 MG CAPSULE (FP) PO SCH ×2 (18:32→21:38)
[2020-10-28] MEDS: NICOTINE POLACRILEX 2 MG GUM BC PRN (18:32)
[2020-10-28] MEDS: MELATONIN 5 MG TABLETS PO SCH (21:38)
[2020-10-28] MEDS: THIAMINE HCL 100 MG TABLET (FP) PO SCH (21:38)
[2020-10-28] MEDS: BICTEGRAV/EMTRICIT/TENOFOV (BIKTARVY) 50-200-25 MG TABLET PO SCH (21:39)
[2020-10-28] MEDS: IBUPROFEN 400 MG TABLET (FP) PO PRN (22:23)
[2020-10-29] MEDS: hydrOXYzine PAMOATE 25 MG CAPSULE (FP) PO SCH ×5 (06:43→21:47)
[2020-10-29] MEDS ORDERED: METHADONE HCL 10 MG TABLET PO SCH (07:30)
[2020-10-29] MEDS ORDERED: METHADONE 40 MG, METHADONE 5 MG PO ONE (08:00)
[2020-10-29] MEDS ORDERED: METHADONE HCL 40 MG DISPERSABLE TABLET ONE (08:22)
[2020-10-29] MEDS ORDERED: METHADONE HCL 5 MG TABLET ONE (08:22)
[2020-10-29] MEDS: PRENATAL VITAMINS W/ FOLIC ACID TABLET (FP) PO SCH (10:00)
[2020-10-29] MEDS: NICOTINE POLACRILEX 2 MG GUM BC PRN (10:01)
[2020-10-29] MEDS: NICOTINE 7 MG/24 HOURS TOPICAL PATCH TD SCH (10:01)
[2020-10-29] MEDS ORDERED: BICTEGRAV/EMTRICIT/TENOFOV (BIKTARVY) 50-200-25 MG TABLET PO SCH (10:06)
[2020-10-29] MEDS: BICTEGRAV/EMTRICIT/TENOFOV (BIKTARVY) 50-200-25 MG TABLET PO SCH ×2 (10:58→11:02)
[2020-10-29 14:45] LABS: POTASSIUM 4.2 mmol/L (3.5-5.1)
[2020-10-29 14:48] LABS: HEMATOCRIT 37.8 % (35.4-49); HEMOGLOBIN 12.5 GM/dL (11.7-16.9); MCH 32.3 pg (25.7-33.7); MEAN CELL VOLUME 97.9 fl (80-96); MEAN PLT VOLUME 8.2 fl (7.5-11.1); PLATELET COUNT 251 K/MM3 (134-434); RBC 3.86 M/mm3 (4.00-5.60); RDW 12.8 % (11.9-15.9); WHITE BLOOD COUNT 2.7 K/mm3 (4.0-10.0)
[2020-10-29 14:49] LABS: ALBUMIN 3.4 g/dl (3.4-5.0)
[2020-10-29 14:50] LABS: BLOOD UREA NITROGEN 20.3 mg/dL (7-18); CALCIUM 8.8 mg/dL (8.5-10.1)
[2020-10-29 14:54] LABS: BILIRUBIN,TOTAL 0.8 mg/dL (0.2-1); TOT PROT 6.6 g/dl (6.4-8.2)
[2020-10-29 15:21] LABS: SICKLE CELL SCREEN NEGATIVE (NEGATIVE)
[2020-10-29] MEDS: IBUPROFEN 400 MG TABLET (FP) PO PRN (19:55)
[2020-10-29] MEDS: SUVOREXANT 10 MG TABLET PO PRN (21:46)
[2020-10-29] MEDS: GABAPENTIN 100 MG CAPSULE PO SCH (21:46)
[2020-10-29] MEDS: MELATONIN 5 MG TABLETS PO SCH (21:47)
[2020-10-29] MEDS: THIAMINE HCL 100 MG TABLET (FP) PO SCH (21:47)
[2020-10-29] MEDS: ACETAMINOPHEN 325 MG TABLET (FP) PO PRN (21:48)
[2020-10-30] MEDS ORDERED: METHADONE HCL 5 MG TABLET ONE (04:08)
[2020-10-30] MEDS ORDERED: METHADONE HCL 40 MG DISPERSABLE TABLET ONE (04:08)
[2020-10-30] MEDS: hydrOXYzine PAMOATE 25 MG CAPSULE (FP) PO SCH ×5 (06:32→21:13)
[2020-10-30] MEDS: GABAPENTIN 100 MG CAPSULE PO SCH ×3 (06:32→21:13)
[2020-10-30] MEDS: METHADONE 40 MG, METHADONE 5 MG PO SCH (06:32)
[2020-10-30] MEDS ORDERED: MASKS NR ONE (07:23)
[2020-10-30] MEDS: BICTEGRAV/EMTRICIT/TENOFOV (BIKTARVY) 50-200-25 MG TABLET PO SCH (07:27)
[2020-10-30] MEDS: PRENATAL VITAMINS W/ FOLIC ACID TABLET (FP) PO SCH (09:46)
[2020-10-30] MEDS: NICOTINE 7 MG/24 HOURS TOPICAL PATCH TD SCH (09:46)
[2020-10-30] MEDS: FLUoxetine HCL 10 MG CAPSULE PO SCH (10:50)
[2020-10-30] MEDS: IBUPROFEN 400 MG TABLET (FP) PO PRN (19:36)
[2020-10-30] MEDS: SUVOREXANT 10 MG TABLET PO PRN (21:13)
[2020-10-30] MEDS: THIAMINE HCL 100 MG TABLET (FP) PO SCH (21:14)
[2020-10-30] MEDS: MELATONIN 5 MG TABLETS PO SCH (21:14)
[2020-10-30] MEDS: ACETAMINOPHEN 325 MG TABLET (FP) PO PRN (22:06)
[2020-10-31] MEDS ORDERED: METHADONE HCL 5 MG TABLET ONE (04:04)
[2020-10-31] MEDS ORDERED: METHADONE HCL 40 MG DISPERSABLE TABLET ONE (04:05)
[2020-10-31] MEDS: METHADONE 40 MG, METHADONE 5 MG PO SCH (06:31)
[2020-10-31] MEDS: GABAPENTIN 100 MG CAPSULE PO SCH ×3 (06:31→21:42)
[2020-10-31] MEDS: hydrOXYzine PAMOATE 25 MG CAPSULE (FP) PO SCH ×5 (06:35→21:42)
[2020-10-31] MEDS: BICTEGRAV/EMTRICIT/TENOFOV (BIKTARVY) 50-200-25 MG TABLET PO SCH (07:19)
[2020-10-31] MEDS: PRENATAL VITAMINS W/ FOLIC ACID TABLET (FP) PO SCH (09:45)
[2020-10-31] MEDS: IBUPROFEN 400 MG TABLET (FP) PO PRN (09:45)
[2020-10-31] MEDS: FLUoxetine HCL 10 MG CAPSULE PO SCH (09:45)
[2020-10-31] MEDS: NICOTINE 7 MG/24 HOURS TOPICAL PATCH TD SCH (09:47)
[2020-10-31] MEDS ORDERED: MASKS NR ONE (11:09)
[2020-10-31] MEDS: ACETAMINOPHEN 325 MG TABLET (FP) PO PRN (17:45)
[2020-10-31] MEDS: THIAMINE HCL 100 MG TABLET (FP) PO SCH (21:42)
[2020-10-31] MEDS: SUVOREXANT 10 MG TABLET PO PRN (21:42)
[2020-10-31] MEDS: MELATONIN 5 MG TABLETS PO SCH (21:42)
[2020-10-31] MEDS: NICOTINE POLACRILEX 2 MG GUM BC PRN (23:28)
[2020-11-01] MEDS ORDERED: METHADONE HCL 40 MG DISPERSABLE TABLET ONE (04:18)
[2020-11-01] MEDS ORDERED: METHADONE HCL 5 MG TABLET ONE (04:18)
[2020-11-01] MEDS: GABAPENTIN 100 MG CAPSULE PO SCH (06:35)
[2020-11-01] MEDS: hydrOXYzine PAMOATE 25 MG CAPSULE (FP) PO SCH ×2 (06:35→09:54)
[2020-11-01] MEDS: METHADONE 40 MG, METHADONE 5 MG PO SCH (06:36)
[2020-11-01] MEDS: IBUPROFEN 400 MG TABLET (FP) PO PRN (06:46)
[2020-11-01 07:06] VITALS: BP 109/68; PULSE 70; TEMP 98.4
[2020-11-01] MEDS: BICTEGRAV/EMTRICIT/TENOFOV (BIKTARVY) 50-200-25 MG TABLET PO SCH (07:22)
[2020-11-01] MEDS: PRENATAL VITAMINS W/ FOLIC ACID TABLET (FP) PO SCH (09:54)
[2020-11-01] MEDS: FLUoxetine HCL 10 MG CAPSULE PO SCH (09:54)
[2020-11-01] MEDS: NICOTINE 7 MG/24 HOURS TOPICAL PATCH TD SCH (09:54)
[2020-11-01] MEDS ORDERED: LIDOCAINE VISCOUS 2% ORAL/TOP 20 ML UNIT-DOSE CUP MM PRN (09:57)
== END 2020-11-01 13:00 | disposition left against medical advice (07) | DRG 770 ==
LOC: YASAS 11:57 → Y5N 16:57
PROVIDERS: ADMIT Allergy & Immunology; ATTEND Allergy & Immunology
PROC: HZ2ZZZZ Detoxification Services for Substance Abuse Treatment (ICD-10-PCS; principal; 2020-10-28)
DX: F11.20 Opioid dependence, uncomplicated (principal); F10.20 Alcohol dependence, uncomplicated; F14.20 Cocaine dependence, uncomplicated; F19.282 Other psychoactive substance dependence with psychoactive substance-induced sleep disorder; F41.9 Anxiety disorder, unspecified; B20 Human immunodeficiency virus [HIV] disease; J45.909 Unspecified asthma, uncomplicated; Z86.69 Personal history of other diseases of the nervous system and sense organs; Z88.1 Allergy status to other antibiotic agents; Z88.2 Allergy status to sulfonamides
CPT/HCPCS: 36415; 80053; 85027; 85660; 86593; 86780; C9803; U0003

== ENCOUNTER 2021-01-04 15:08 | Inpatient (IN) | payer OTHER ==
[2021-01-04] MEDS ORDERED: guaiFENesin 200 MG/10 ML 10 ML UNIT-DOSE CUPS PO PRN (21:28)
[2021-01-04] MEDS ORDERED: LOPERAMIDE HCL 2 MG CAPSULE PO PRN (21:28)
[2021-01-04] MEDS ORDERED: P-EPHED 60MG/TRIPROLIDI 2.5MG TABLET PO PRN (21:28)
[2021-01-04] MEDS ORDERED: MAGNESIUM CITRATE 300 ML BOTTLE PO PRN (21:28)
[2021-01-04] MEDS ORDERED: MAG HYDROX/AL HYDROX/SIMETH 30 ML UNIT-DOSE CUP PO PRN (21:28)
[2021-01-04] MEDS ORDERED: ACETAMINOPHEN 325 MG TABLET (FP) PO PRN (21:28)
[2021-01-04] MEDS ORDERED: NICOTINE POLACRILEX 2 MG GUM BC PRN (21:28)
[2021-01-04] MEDS ORDERED: MAGNESIUM HYDROX 2400MG/30ML ORAL SUSPENSION 30 ML CUP PO PRN (21:28)
[2021-01-04] MEDS ORDERED: ALBUTEROL SO4 HFA INHALER IH PRN (21:30)
[2021-01-04 21:51] VITALS: BMI 23.1
[2021-01-04] MEDS ORDERED: MELATONIN 5 MG TABLETS PO SCH (22:00)
[2021-01-04] MEDS ORDERED: SUVOREXANT 5 MG TABLET PO ONE (22:00)
[2021-01-04] MEDS ORDERED: TUBERCULIN PPD 5 TU/0.1ML VIAL ID ONE (23:51)
[2021-01-05] MEDS: hydrOXYzine PAMOATE 25 MG CAPSULE (FP) PO SCH ×3 (00:01→09:41)
[2021-01-05] MEDS: THIAMINE HCL 100 MG TABLET (FP) PO SCH ×2 (00:01→21:15)
[2021-01-05] MEDS: NICOTINE 14 MG/24 HOURS TOPICAL PATCH TD SCH ×2 (00:01→09:42)
[2021-01-05] MEDS: PRENATAL VITAMINS W/ FOLIC ACID TABLET (FP) PO SCH ×2 (00:03→09:41)
[2021-01-05] MEDS ORDERED: PT OWN MED DRAWER 7, Y5N ONE (03:20)
[2021-01-05] MEDS ORDERED: METHADONE HCL 5 MG TABLET ONE (07:28)
[2021-01-05] MEDS ORDERED: METHADONE HCL 40 MG DISPERSABLE TABLET ONE (07:28)
[2021-01-05] MEDS ORDERED: METHADONE HCL 10 MG TABLET ONE (07:28)
[2021-01-05] MEDS ORDERED: METHADONE HCL 10 MG TABLET PO SCH (07:30)
[2021-01-05] MEDS: METHADONE 40 MG, METHADONE 10 MG, METHADONE 5 MG PO SCH (07:31)
[2021-01-05] MEDS: IBUPROFEN 400 MG TABLET (FP) PO PRN ×2 (09:41→18:14)
[2021-01-05] MEDS ORDERED: BICTEGRAV/EMTRICIT/TENOFOV (BIKTARVY) 50-200-25 MG TABLET PO SCH (10:00)
[2021-01-05] MEDS ORDERED: GABAPENTIN 400 MG CAPSULE PO SCH (11:00)
[2021-01-05 11:24] LABS: HEMATOCRIT 37.5 % (35.4-49); HEMOGLOBIN 12.8 GM/dL (11.7-16.9); MCHC 34.3 g/dl (32.0-35.9); MEAN CELL VOLUME 96.2 fl (80-96); MEAN PLT VOLUME 7.3 fl (7.5-11.1); PLATELET COUNT 356 K/MM3 (134-434); RDW 14.3 % (11.9-15.9); WHITE BLOOD COUNT 3.6 K/mm3 (4.0-10.0)
[2021-01-05 11:45] LABS: CALCIUM 8.8 mg/dL (8.5-10.1)
[2021-01-05 11:46] LABS: ALBUMIN 3.4 g/dl (3.4-5.0); BLOOD UREA NITROGEN 24.4 mg/dL (7-18)
[2021-01-05 11:50] LABS: BILIRUBIN,TOTAL 0.2 mg/dL (0.2-1)
[2021-01-05 11:51] LABS: TOT PROT 6.7 g/dl (6.4-8.2)
[2021-01-05] MEDS: GABAPENTIN 400 MG CAPSULE PO SCH ×2 (13:52→21:15)
[2021-01-05] MEDS ORDERED: COLLOIDAL OATMEAL 1 BAR EACH TP PRN (15:30)
[2021-01-05] MEDS: hydrOXYzine PAMOATE 50 MG CAPSULE (FP) PO PRN (18:03)
[2021-01-05 18:11] LABS: URINE APPEARANCE CLEAR; URINE BILIRUBIN NEGATIVE (NEGATIVE); URINE COLOR YELLOW; URINE GLUCOSE (UA) NEGATIVE (NEGATIVE); URINE KETONE TRACE (NEGATIVE); URINE LEUK ESTERASE NEGATIVE (NEGATIVE); URINE NITRITE NEGATIVE (NEGATIVE); URINE PROTEIN NEGATIVE (NEGATIVE); URINE UROBILINOGEN 0.2 mg/dL (0.2-1.0)
[2021-01-05] MEDS ORDERED: SUVOREXANT 10 MG TABLET PO PRN (22:00)
[2021-01-06] MEDS ORDERED: METHADONE HCL 40 MG DISPERSABLE TABLET ONE (03:13)
[2021-01-06] MEDS ORDERED: METHADONE HCL 10 MG TABLET ONE (03:14)
[2021-01-06] MEDS ORDERED: METHADONE HCL 5 MG TABLET ONE (03:14)
[2021-01-06] MEDS: GABAPENTIN 400 MG CAPSULE PO SCH ×2 (06:21→13:20)
[2021-01-06] MEDS: IBUPROFEN 400 MG TABLET (FP) PO PRN ×2 (06:22→11:24)
[2021-01-06] MEDS: METHADONE 40 MG, METHADONE 10 MG, METHADONE 5 MG PO SCH (06:22)
[2021-01-06 07:13] VITALS: BP 108/72; PULSE 60; TEMP 97.7
[2021-01-06] MEDS ORDERED: BICTEGRAV/EMTRICIT/TENOFOV (BIKTARVY) 50-200-25 MG TABLET PO SCH (08:00)
[2021-01-06] MEDS: NICOTINE 14 MG/24 HOURS TOPICAL PATCH TD SCH (10:12)
[2021-01-06] MEDS: PRENATAL VITAMINS W/ FOLIC ACID TABLET (FP) PO SCH (10:13)
[2021-01-06] MEDS: hydrOXYzine PAMOATE 50 MG CAPSULE (FP) PO PRN (10:15)
[2021-01-06] MEDS ORDERED: LORATADINE 10 MG TABLET PO PRN (11:33)
[2021-01-06] MEDS ORDERED: LIDOCAINE 5% TOPICAL PATCH TP SCH (11:45)
[2021-01-06] MEDS ORDERED: LIDOCAINE PATCH REMOVAL MC SCH (22:00)
== END 2021-01-06 14:56 | disposition home or self-care (01) | DRG 772 ==
LOC: YASAS 15:08 → Y3W 21:45
PROVIDERS: ADMIT Allergy & Immunology; ATTEND Allergy & Immunology
PROC: HZ42ZZZ Group Counseling for Substance Abuse Treatment, Cognitive-Behavioral (ICD-10-PCS; principal; 2021-01-04)
DX: F11.20 Opioid dependence, uncomplicated (principal); F14.20 Cocaine dependence, uncomplicated; F13.10 Sedative, hypnotic or anxiolytic abuse, uncomplicated; F17.210 Nicotine dependence, cigarettes, uncomplicated; F19.280 Other psychoactive substance dependence with psychoactive substance-induced anxiety disorder; F19.282 Other psychoactive substance dependence with psychoactive substance-induced sleep disorder; F19.24 Other psychoactive substance dependence with psychoactive substance-induced mood disorder; B20 Human immunodeficiency virus [HIV] disease; G40.909 Epilepsy, unspecified, not intractable, without status epilepticus; J45.909 Unspecified asthma, uncomplicated; Z88.2 Allergy status to sulfonamides; Z91.5 Personal history of self-harm; Z59.0 Homelessness
CPT/HCPCS: 36415; 80053; 81003; 85027; 86593; 86780; C9803; U0003

== ENCOUNTER 2021-01-25 17:04 | Inpatient (IN) | payer OTHER ==
[2021-01-25 19:46] VITALS: BMI 22.6
[2021-01-25] MEDS ORDERED: ALBUTEROL SO4 HFA INHALER IH PRN (21:19)
[2021-01-25] MEDS ORDERED: P-EPHED 60MG/TRIPROLIDI 2.5MG TABLET PO PRN (21:20)
[2021-01-25] MEDS ORDERED: LOPERAMIDE HCL 2 MG CAPSULE PO PRN (21:20)
[2021-01-25] MEDS ORDERED: MAGNESIUM CITRATE 300 ML BOTTLE PO PRN (21:20)
[2021-01-25] MEDS ORDERED: MAG HYDROX/AL HYDROX/SIMETH 30 ML UNIT-DOSE CUP PO PRN (21:20)
[2021-01-25] MEDS ORDERED: IBUPROFEN 400 MG TABLET (FP) PO PRN (21:20)
[2021-01-25] MEDS ORDERED: MAGNESIUM HYDROX 2400MG/30ML ORAL SUSPENSION 30 ML CUP PO PRN (21:20)
[2021-01-25] MEDS ORDERED: ACETAMINOPHEN 325 MG TABLET (FP) PO PRN (21:20)
[2021-01-25] MEDS ORDERED: guaiFENesin 200 MG/10 ML 10 ML UNIT-DOSE CUPS PO PRN (21:20)
[2021-01-25] MEDS ORDERED: THIAMINE HCL 100 MG TABLET (FP) PO SCH (22:00)
[2021-01-25] MEDS ORDERED: MELATONIN 5 MG TABLETS PO SCH (22:00)
[2021-01-25] MEDS: hydrOXYzine PAMOATE 25 MG CAPSULE (FP) PO PRN (22:36)
[2021-01-26 06:54] VITALS: BP 99/67; PULSE 63; TEMP 97.3
[2021-01-26] MEDS: hydrOXYzine PAMOATE 25 MG CAPSULE (FP) PO PRN (07:21)
[2021-01-26] MEDS ORDERED: BICTEGRAV/EMTRICIT/TENOFOV (BIKTARVY) 50-200-25 MG TABLET PO SCH (08:00)
[2021-01-26] MEDS ORDERED: NICOTINE 14 MG/24 HOURS TOPICAL PATCH TD SCH (10:00)
[2021-01-26] MEDS ORDERED: PRENATAL VITAMINS W/ FOLIC ACID TABLET (FP) PO SCH (10:00)
== END 2021-01-26 08:00 | disposition left against medical advice (07) | DRG 770 ==
LOC: YASAS 17:04 → Y5N 21:44
PROVIDERS: ADMIT Allergy & Immunology; ATTEND Allergy & Immunology
PROC: HZ42ZZZ Group Counseling for Substance Abuse Treatment, Cognitive-Behavioral (ICD-10-PCS; principal; 2021-01-25)
DX: F11.20 Opioid dependence, uncomplicated (principal); F14.20 Cocaine dependence, uncomplicated; F13.10 Sedative, hypnotic or anxiolytic abuse, uncomplicated; F17.210 Nicotine dependence, cigarettes, uncomplicated; F19.280 Other psychoactive substance dependence with psychoactive substance-induced anxiety disorder; F41.9 Anxiety disorder, unspecified; F90.9 Attention-deficit hyperactivity disorder, unspecified type; F19.24 Other psychoactive substance dependence with psychoactive substance-induced mood disorder; B20 Human immunodeficiency virus [HIV] disease; Z88.2 Allergy status to sulfonamides
CPT/HCPCS: C9803; U0003

== ENCOUNTER 2021-02-25 12:05 | Inpatient (IN) | payer OTHER ==
[2021-02-25 14:20] VITALS: BMI 23.7
[2021-02-25] MEDS ORDERED: MAGNESIUM CITRATE 300 ML BOTTLE PO PRN (16:53)
[2021-02-25] MEDS ORDERED: MAGNESIUM HYDROX 2400MG/30ML ORAL SUSPENSION 30 ML CUP PO PRN (16:53)
[2021-02-25] MEDS ORDERED: hydrOXYzine PAMOATE 25 MG CAPSULE (FP) PO PRN (16:53)
[2021-02-25] MEDS ORDERED: LOPERAMIDE HCL 2 MG CAPSULE PO PRN (16:53)
[2021-02-25] MEDS ORDERED: guaiFENesin 200 MG/10 ML 10 ML UNIT-DOSE CUPS PO PRN (16:53)
[2021-02-25] MEDS ORDERED: MAG HYDROX/AL HYDROX/SIMETH 30 ML UNIT-DOSE CUP PO PRN (16:53)
[2021-02-25] MEDS ORDERED: P-EPHED 60MG/TRIPROLIDI 2.5MG TABLET PO PRN (16:53)
[2021-02-25] MEDS ORDERED: ALBUTEROL SO4 HFA INHALER IH PRN (16:54)
[2021-02-25] MEDS: IBUPROFEN 400 MG TABLET (FP) PO PRN (18:36)
[2021-02-25] MEDS: NICOTINE POLACRILEX 2 MG GUM BC PRN ×2 (18:37→22:22)
[2021-02-25] MEDS: MELATONIN 5 MG TABLETS PO SCH (21:08)
[2021-02-25] MEDS: THIAMINE HCL 100 MG TABLET (FP) PO SCH (21:08)
[2021-02-26] MEDS ORDERED: METHADONE HCL 10 MG TABLET PO SCH ×2 (07:45)
[2021-02-26] MEDS ORDERED: METHADONE 40 MG, METHADONE 20 MG, METHADONE 5 MG PO ONE (09:45)
[2021-02-26] MEDS: BICTEGRAV/EMTRICIT/TENOFOV (BIKTARVY) 50-200-25 MG TABLET PO SCH (09:51)
[2021-02-26] MEDS: NICOTINE 14 MG/24 HOURS TOPICAL PATCH TD SCH (09:51)
[2021-02-26] MEDS ORDERED: METHADONE HCL 40 MG DISPERSABLE TABLET ONE (09:52)
[2021-02-26] MEDS ORDERED: METHADONE HCL 5 MG TABLET ONE (09:52)
[2021-02-26] MEDS: hydrOXYzine PAMOATE 25 MG CAPSULE (FP) PO PRN ×2 (09:53→16:50)
[2021-02-26] MEDS ORDERED: METHADONE HCL 10 MG TABLET ONE (09:53)
[2021-02-26] MEDS: PRENATAL VITAMINS W/ FOLIC ACID TABLET (FP) PO SCH (09:54)
[2021-02-26] MEDS: LIDOCAINE 5% TOPICAL PATCH TP SCH (09:54)
[2021-02-26] MEDS ORDERED: NICOTINE 7 MG/24 HOURS TOPICAL PATCH TD SCH (10:00)
[2021-02-26] MEDS: IBUPROFEN 400 MG TABLET (FP) PO PRN ×2 (11:22→21:33)
[2021-02-26 13:25] LABS: HEMATOCRIT 36.6 % (35.4-49); HEMOGLOBIN 12.4 GM/dL (11.7-16.9); MCH 32.9 pg (25.7-33.7); MCHC 33.8 g/dl (32.0-35.9); MEAN CELL VOLUME 97.1 fl (80-96); MEAN PLT VOLUME 8.2 fl (7.5-11.1); PLATELET COUNT 246 K/MM3 (134-434); RBC 3.77 M/mm3 (4.00-5.60); RDW 13.4 % (11.9-15.9); WHITE BLOOD COUNT 3.2 K/mm3 (4.0-10.0)
[2021-02-26 13:36] LABS: CALCIUM 8.9 mg/dL (8.5-10.1)
[2021-02-26 13:37] LABS: ALBUMIN 3.4 g/dl (3.4-5.0); BLOOD UREA NITROGEN 19.6 mg/dL (7-18)
[2021-02-26 13:42] LABS: BILIRUBIN,TOTAL 0.2 mg/dL (0.2-1); TOT PROT 6.6 g/dl (6.4-8.2)
[2021-02-26] MEDS ORDERED: LIDOCAINE 5% TOPICAL PATCH TP SCH (19:45)
[2021-02-26] MEDS: THIAMINE HCL 100 MG TABLET (FP) PO SCH (21:31)
[2021-02-26] MEDS: MELATONIN 5 MG TABLETS PO SCH (21:31)
[2021-02-26] MEDS ORDERED: LIDOCAINE PATCH REMOVAL MC SCH (22:00)
[2021-02-27] MEDS: hydrOXYzine PAMOATE 25 MG CAPSULE (FP) PO PRN ×3 (00:41→19:41)
[2021-02-27] MEDS ORDERED: METHADONE HCL 40 MG DISPERSABLE TABLET ONE (04:02)
[2021-02-27] MEDS ORDERED: METHADONE HCL 10 MG TABLET ONE (04:02)
[2021-02-27] MEDS ORDERED: METHADONE HCL 5 MG TABLET ONE (04:02)
[2021-02-27] MEDS: METHADONE 40 MG, METHADONE 20 MG, METHADONE 5 MG PO SCH (06:29)
[2021-02-27] MEDS: LIDOCAINE PATCH REMOVAL MC SCH ×2 (06:30→21:21)
[2021-02-27] MEDS: LIDOCAINE 5% TOPICAL PATCH TP SCH (09:37)
[2021-02-27] MEDS: PRENATAL VITAMINS W/ FOLIC ACID TABLET (FP) PO SCH (09:37)
[2021-02-27] MEDS: BICTEGRAV/EMTRICIT/TENOFOV (BIKTARVY) 50-200-25 MG TABLET PO SCH (09:37)
[2021-02-27] MEDS: NICOTINE 14 MG/24 HOURS TOPICAL PATCH TD SCH (09:38)
[2021-02-27 10:08] LABS: PH,URINE 5.5 (5.0-8.0); URINE APPEARANCE CLEAR; URINE BILIRUBIN NEGATIVE (NEGATIVE); URINE COLOR YELLOW; URINE GLUCOSE (UA) NEGATIVE (NEGATIVE); URINE KETONE NEGATIVE (NEGATIVE); URINE LEUK ESTERASE NEGATIVE (NEGATIVE); URINE NITRITE NEGATIVE (NEGATIVE); URINE PROTEIN NEGATIVE (NEGATIVE); URINE UROBILINOGEN 0.2 mg/dL (0.2-1.0)
[2021-02-27] MEDS: ACETAMINOPHEN 325 MG TABLET (FP) PO PRN (14:50)
[2021-02-27] MEDS: IBUPROFEN 400 MG TABLET (FP) PO PRN (18:54)
[2021-02-27] MEDS: THIAMINE HCL 100 MG TABLET (FP) PO SCH (21:15)
[2021-02-27] MEDS: MELATONIN 5 MG TABLETS PO SCH (21:15)
[2021-02-28] MEDS: IBUPROFEN 400 MG TABLET (FP) PO PRN ×3 (00:29→17:09)
[2021-02-28] MEDS ORDERED: METHADONE HCL 40 MG DISPERSABLE TABLET ONE (03:04)
[2021-02-28] MEDS ORDERED: METHADONE HCL 10 MG TABLET ONE (03:05)
[2021-02-28] MEDS ORDERED: METHADONE HCL 5 MG TABLET ONE (03:05)
[2021-02-28] MEDS: METHADONE 40 MG, METHADONE 20 MG, METHADONE 5 MG PO SCH (06:20)
[2021-02-28 06:45] VITALS: TEMP 97.5
[2021-02-28] MEDS: LIDOCAINE 5% TOPICAL PATCH TP SCH (09:03)
[2021-02-28] MEDS: NICOTINE 14 MG/24 HOURS TOPICAL PATCH TD SCH (09:04)
[2021-02-28] MEDS: PRENATAL VITAMINS W/ FOLIC ACID TABLET (FP) PO SCH (09:06)
[2021-02-28] MEDS: hydrOXYzine PAMOATE 25 MG CAPSULE (FP) PO PRN ×3 (09:41→21:32)
[2021-02-28] MEDS: BICTEGRAV/EMTRICIT/TENOFOV (BIKTARVY) 50-200-25 MG TABLET PO SCH (10:08)
[2021-02-28] MEDS: ACETAMINOPHEN 325 MG TABLET (FP) PO PRN (11:34)
[2021-02-28] MEDS: MELATONIN 5 MG TABLETS PO SCH (21:31)
[2021-02-28] MEDS: THIAMINE HCL 100 MG TABLET (FP) PO SCH (21:31)
[2021-02-28] MEDS: LIDOCAINE PATCH REMOVAL MC SCH (21:32)
[2021-03-01] MEDS: IBUPROFEN 400 MG TABLET (FP) PO PRN ×4 (01:14→23:12)
[2021-03-01] MEDS ORDERED: METHADONE HCL 40 MG DISPERSABLE TABLET ONE (03:12)
[2021-03-01] MEDS ORDERED: METHADONE HCL 5 MG TABLET ONE (03:12)
[2021-03-01] MEDS ORDERED: METHADONE HCL 10 MG TABLET ONE (03:13)
[2021-03-01] MEDS: METHADONE 40 MG, METHADONE 20 MG, METHADONE 5 MG PO SCH (06:42)
[2021-03-01] MEDS: PRENATAL VITAMINS W/ FOLIC ACID TABLET (FP) PO SCH (09:24)
[2021-03-01] MEDS: NICOTINE 14 MG/24 HOURS TOPICAL PATCH TD SCH (09:24)
[2021-03-01] MEDS: LIDOCAINE 5% TOPICAL PATCH TP SCH (09:24)
[2021-03-01] MEDS: BICTEGRAV/EMTRICIT/TENOFOV (BIKTARVY) 50-200-25 MG TABLET PO SCH (09:24)
[2021-03-01 10:07] LABS: SARS-CoV-2 NAA Not Detected (Not Detected)
[2021-03-01] MEDS: hydrOXYzine PAMOATE 25 MG CAPSULE (FP) PO PRN ×2 (14:25→18:38)
[2021-03-01] MEDS ORDERED: MASKS NR ONE (15:04)
[2021-03-01] MEDS: MELATONIN 5 MG TABLETS PO SCH (21:05)
[2021-03-01] MEDS: THIAMINE HCL 100 MG TABLET (FP) PO SCH (21:05)
[2021-03-01] MEDS: busPIRone HCL 10 MG TABLET (FP) PO SCH (21:06)
[2021-03-01] MEDS: LIDOCAINE PATCH REMOVAL MC SCH (21:06)
[2021-03-01] MEDS ORDERED: SUVOREXANT 15 MG TABLET PO PRN (22:00)
[2021-03-02] MEDS ORDERED: METHADONE HCL 40 MG DISPERSABLE TABLET ONE (03:14)
[2021-03-02] MEDS ORDERED: METHADONE HCL 5 MG TABLET ONE (03:14)
[2021-03-02] MEDS ORDERED: METHADONE HCL 10 MG TABLET ONE (03:14)
[2021-03-02] MEDS: METHADONE 40 MG, METHADONE 20 MG, METHADONE 5 MG PO SCH (06:36)
[2021-03-02 07:21] VITALS: BP 109/68; PULSE 65
[2021-03-02] MEDS: busPIRone HCL 10 MG TABLET (FP) PO SCH (09:41)
[2021-03-02] MEDS: NICOTINE 14 MG/24 HOURS TOPICAL PATCH TD SCH (09:41)
[2021-03-02] MEDS: hydrOXYzine PAMOATE 25 MG CAPSULE (FP) PO PRN (09:41)
[2021-03-02] MEDS: PRENATAL VITAMINS W/ FOLIC ACID TABLET (FP) PO SCH (09:41)
[2021-03-02] MEDS: LIDOCAINE 5% TOPICAL PATCH TP SCH (09:42)
[2021-03-02] MEDS: BICTEGRAV/EMTRICIT/TENOFOV (BIKTARVY) 50-200-25 MG TABLET PO SCH (09:42)
[2021-03-02] MEDS ORDERED: COLLOIDAL OATMEAL 1 BAR EACH TP PRN (10:33)
[2021-03-02] MEDS ORDERED: METHOCARBAMOL 500 MG TABLET PO SCH (14:00)
== END 2021-03-02 14:24 | disposition home or self-care (01) | DRG 772 ==
LOC: YASAS 12:05 → Y3W 16:50
PROVIDERS: ADMIT Allergy & Immunology; ATTEND Allergy & Immunology
PROC: HZ42ZZZ Group Counseling for Substance Abuse Treatment, Cognitive-Behavioral (ICD-10-PCS; principal; 2021-02-25)
DX: F11.20 Opioid dependence, uncomplicated (principal); F14.20 Cocaine dependence, uncomplicated; F17.210 Nicotine dependence, cigarettes, uncomplicated; F19.280 Other psychoactive substance dependence with psychoactive substance-induced anxiety disorder; F19.24 Other psychoactive substance dependence with psychoactive substance-induced mood disorder; F31.9 Bipolar disorder, unspecified; F41.9 Anxiety disorder, unspecified; B20 Human immunodeficiency virus [HIV] disease; J45.909 Unspecified asthma, uncomplicated; Z88.2 Allergy status to sulfonamides; Z86.59 Personal history of other mental and behavioral disorders
CPT/HCPCS: 36415; 80053; 81003; 85027; 86593; 86780; C9803; G0397; G0463-25; U0003; U0005

== ENCOUNTER 2021-05-17 18:02 | Inpatient (IN) | payer OTHER ==
[2021-05-17 21:00] VITALS: BMI 22.1
[2021-05-18] MEDS ORDERED: ACETAMINOPHEN 325 MG TABLET (FP) PO ONE (00:40)
[2021-05-18] MEDS ORDERED: ACETAMINOPHEN 325 MG TABLET (FP) ONE (00:46)
[2021-05-18] MEDS ORDERED: NICOTINE POLACRILEX 2 MG GUM BUC PRN ×2 (13:28→15:18)
[2021-05-18] MEDS ORDERED: MAGNESIUM CITRATE 300 ML BOTTLE PO PRN (15:18)
[2021-05-18] MEDS ORDERED: LOPERAMIDE HCL 2 MG CAPSULE PO PRN (15:18)
[2021-05-18] MEDS ORDERED: MAGNESIUM HYDROX 2400MG/30ML ORAL SUSPENSION 30 ML CUP PO PRN (15:18)
[2021-05-18] MEDS ORDERED: guaiFENesin 200 MG/10 ML 10 ML UNIT-DOSE CUPS PO PRN (15:18)
[2021-05-18] MEDS ORDERED: ACETAMINOPHEN 325 MG TABLET (FP) PO PRN (15:18)
[2021-05-18] MEDS ORDERED: P-EPHED 60MG/TRIPROLIDI 2.5MG TABLET PO PRN (15:18)
[2021-05-18] MEDS ORDERED: IBUPROFEN 400 MG TABLET (FP) PO PRN (15:18)
[2021-05-18] MEDS ORDERED: MAG HYDROX/AL HYDROX/SIMETH 30 ML UNIT-DOSE CUP PO PRN (15:18)
[2021-05-18] MEDS ORDERED: ALBUTEROL SO4 HFA INHALER IH PRN (15:19)
[2021-05-18] MEDS ORDERED: NICOTINE 7 MG/24 HOURS TOPICAL PATCH TD SCH (15:30)
[2021-05-18] MEDS: BICTEGRAV/EMTRICIT/TENOFOV (BIKTARVY) 50-200-25 MG TABLET PO SCH (16:51)
[2021-05-18] MEDS: PRENATAL VITAMINS W/ FOLIC ACID TABLET (FP) PO SCH (16:53)
[2021-05-18] MEDS: NICOTINE 14 MG/24 HOURS TOPICAL PATCH TD SCH (16:55)
[2021-05-18] MEDS: LIDOCAINE 5% TOPICAL PATCH TP SCH (16:55)
[2021-05-18] MEDS: hydrOXYzine PAMOATE 25 MG CAPSULE (FP) PO SCH ×2 (17:33→21:16)
[2021-05-18] MEDS ORDERED: MELATONIN 5 MG TABLETS PO SCH (22:00)
[2021-05-18] MEDS ORDERED: LIDOCAINE PATCH REMOVAL MC SCH (22:00)
[2021-05-18] MEDS ORDERED: THIAMINE HCL 100 MG TABLET (FP) PO SCH (22:00)
[2021-05-19] MEDS ORDERED: METHADONE HCL 5 MG TABLET ONE (04:31)
[2021-05-19] MEDS ORDERED: METHADONE HCL 40 MG DISPERSABLE TABLET ONE (04:31)
[2021-05-19] MEDS ORDERED: METHADONE 40 MG, METHADONE 5 MG PO SCH (06:00)
[2021-05-19] MEDS ORDERED: METHADONE HCL 5 MG TABLET PO SCH (06:00)
[2021-05-19] MEDS: hydrOXYzine PAMOATE 25 MG CAPSULE (FP) PO SCH ×2 (06:26→09:23)
[2021-05-19 07:05] VITALS: BP 117/69; PULSE 66; TEMP 97.8
[2021-05-19] MEDS: NICOTINE 14 MG/24 HOURS TOPICAL PATCH TD SCH (09:22)
[2021-05-19] MEDS: PRENATAL VITAMINS W/ FOLIC ACID TABLET (FP) PO SCH (09:22)
[2021-05-19] MEDS: LIDOCAINE 5% TOPICAL PATCH TP SCH (09:22)
[2021-05-19] MEDS: BICTEGRAV/EMTRICIT/TENOFOV (BIKTARVY) 50-200-25 MG TABLET PO SCH (09:23)
[2021-05-19 10:50] LABS: HEMATOCRIT 39.5 % (35.4-49); MCH 31.9 pg (25.7-33.7); MCHC 32.9 g/dl (32.0-35.9); MEAN PLT VOLUME 8.7 fl (7.5-11.1); PLATELET COUNT 356 10^3/uL (134-434); RBC 4.07 M/mm3 (4.00-5.60)
[2021-05-19 10:58] LABS: ALBUMIN 3.9 g/dl (3.4-5.0); BLOOD UREA NITROGEN 21.7 mg/dL (7-18)
[2021-05-19 11:01] LABS: BILIRUBIN,TOTAL 0.2 mg/dL (0.2-1); CREATININE 1.2 mg/dL (0.55-1.3)
[2021-05-19 11:02] LABS: TOT PROT 7.7 g/dl (6.4-8.2)
[2021-05-19 14:17] LABS: PH,URINE 5.5 (5.0-8.0); URINE APPEARANCE Clear; URINE BILIRUBIN Negative (NEGATIVE); URINE COLOR Yellow; URINE GLUCOSE (UA) Negative (NEGATIVE); URINE KETONE Negative (NEGATIVE); URINE LEUK ESTERASE Negative (NEGATIVE); URINE NITRITE Negative (NEGATIVE); URINE PROTEIN Negative (NEGATIVE); URINE UROBILINOGEN 0.2 mg/dL (0.2-1.0)
[2021-05-20] MEDS ORDERED: METHADONE 40 MG, METHADONE 10 MG, METHADONE 5 MG PO SCH (06:00)
[2021-05-20] MEDS ORDERED: METHADONE HCL 10 MG TABLET PO SCH (06:00)
[2021-05-21] MEDS ORDERED: METHADONE 40 MG, METHADONE 20 MG, METHADONE 5 MG PO SCH (06:00)
[2021-05-21] MEDS ORDERED: METHADONE HCL 10 MG TABLET PO SCH (06:00)
== END 2021-05-19 13:55 | disposition left against medical advice (07) | DRG 770 ==
LOC: YASAS 18:02 → Y3W 05-18 15:21
PROVIDERS: ADMIT Allergy & Immunology; ATTEND Allergy & Immunology
PROC: HZ42ZZZ Group Counseling for Substance Abuse Treatment, Cognitive-Behavioral (ICD-10-PCS; principal; 2021-05-18)
DX: F14.20 Cocaine dependence, uncomplicated (principal); F11.20 Opioid dependence, uncomplicated; F10.10 Alcohol abuse, uncomplicated; F13.20 Sedative, hypnotic or anxiolytic dependence, uncomplicated; F19.280 Other psychoactive substance dependence with psychoactive substance-induced anxiety disorder; F19.24 Other psychoactive substance dependence with psychoactive substance-induced mood disorder; F31.9 Bipolar disorder, unspecified; F41.8 Other specified anxiety disorders; F51.05 Insomnia due to other mental disorder; F41.0 Panic disorder [episodic paroxysmal anxiety]; B20 Human immunodeficiency virus [HIV] disease; G40.909 Epilepsy, unspecified, not intractable, without status epilepticus; H18.602 Keratoconus, unspecified, left eye; J45.909 Unspecified asthma, uncomplicated; Z91.5 Personal history of self-harm; Z88.2 Allergy status to sulfonamides
CPT/HCPCS: 36415; 80053; 81003; 85027; 86593; 86769; 86780; C9803; U0003; U0005

== ENCOUNTER 2021-05-22 16:16 | Inpatient (IN) | payer OTHER ==
[2021-05-22 18:09] VITALS: BMI 22.8
[2021-05-23] MEDS ORDERED: MAG HYDROX/AL HYDROX/SIMETH 30 ML UNIT-DOSE CUP PO PRN (01:20)
[2021-05-23] MEDS ORDERED: LOPERAMIDE HCL 2 MG CAPSULE PO PRN (01:20)
[2021-05-23] MEDS ORDERED: MAGNESIUM CITRATE 300 ML BOTTLE PO PRN (01:20)
[2021-05-23] MEDS ORDERED: P-EPHED 60MG/TRIPROLIDI 2.5MG TABLET PO PRN (01:20)
[2021-05-23] MEDS ORDERED: NICOTINE POLACRILEX 2 MG GUM BC PRN (01:20)
[2021-05-23] MEDS ORDERED: guaiFENesin 200 MG/10 ML 10 ML UNIT-DOSE CUPS PO PRN (01:20)
[2021-05-23] MEDS ORDERED: MAGNESIUM HYDROX 2400MG/30ML ORAL SUSPENSION 30 ML CUP PO PRN (01:20)
[2021-05-23] MEDS: ACETAMINOPHEN 325 MG TABLET (FP) PO PRN (03:00)
[2021-05-23] MEDS: NICOTINE 14 MG/24 HOURS TOPICAL PATCH TD SCH ×2 (09:50→10:18)
[2021-05-23] MEDS: PRENATAL VITAMINS W/ FOLIC ACID TABLET (FP) PO SCH ×2 (09:50→10:16)
[2021-05-23] MEDS ORDERED: NICOTINE 7 MG/24 HOURS TOPICAL PATCH TD SCH (10:00)
[2021-05-23] MEDS: hydrOXYzine PAMOATE 25 MG CAPSULE (FP) PO PRN ×2 (14:29→18:38)
[2021-05-23] MEDS: MELATONIN 5 MG TABLETS PO SCH (21:22)
[2021-05-23] MEDS: THIAMINE HCL 100 MG TABLET (FP) PO SCH (21:22)
[2021-05-24] MEDS ORDERED: METHADONE HCL 10 MG TABLET PO ONE (08:48)
[2021-05-24] MEDS ORDERED: METHADONE 30 MG, METHADONE 5 MG PO ONE (09:00)
[2021-05-24] MEDS ORDERED: METHADONE HCL 5 MG TABLET ONE (09:11)
[2021-05-24] MEDS ORDERED: METHADONE HCL 10 MG TABLET ONE (09:11)
[2021-05-24] MEDS: NICOTINE 14 MG/24 HOURS TOPICAL PATCH TD SCH (09:50)
[2021-05-24] MEDS: PRENATAL VITAMINS W/ FOLIC ACID TABLET (FP) PO SCH (09:50)
[2021-05-24] MEDS: hydrOXYzine PAMOATE 25 MG CAPSULE (FP) PO PRN ×3 (09:52→23:48)
[2021-05-24] MEDS ORDERED: LORATADINE 10 MG TABLET PO PRN (11:05)
[2021-05-24] MEDS ORDERED: ALBUTEROL SO4 HFA INHALER IH PRN (11:05)
[2021-05-24 14:19] LABS: ALBUMIN 3.8 g/dl (3.4-5.0); BLOOD UREA NITROGEN 22.2 mg/dL (7-18); HEMATOCRIT 39.2 % (35.4-49); HEMOGLOBIN 13.4 GM/dL (11.7-16.9); MCH 32.7 pg (25.7-33.7); MCHC 34.2 g/dl (32.0-35.9); MEAN CELL VOLUME 95.7 fl (80-96); MEAN PLT VOLUME 8.1 fl (7.5-11.1); PLATELET COUNT 335 10^3/uL (134-434); RDW 14.1 % (11.9-15.9); WHITE BLOOD COUNT 3.8 K/mm3 (4.0-10.0)
[2021-05-24 14:24] LABS: TOT PROT 7.7 g/dl (6.4-8.2)
[2021-05-24 14:25] LABS: BILIRUBIN,TOTAL 0.4 mg/dL (0.2-1)
[2021-05-24] MEDS: LIDOCAINE 5% TOPICAL PATCH TP SCH (14:51)
[2021-05-24] MEDS: METHOCARBAMOL 500 MG TABLET PO PRN ×2 (14:51→23:48)
[2021-05-24] MEDS: BICTEGRAV/EMTRICIT/TENOFOV (BIKTARVY) 50-200-25 MG TABLET PO SCH (14:58)
[2021-05-24] MEDS: IBUPROFEN 400 MG TABLET (FP) PO PRN (18:02)
[2021-05-24] MEDS: MELATONIN 5 MG TABLETS PO SCH (21:17)
[2021-05-24] MEDS: THIAMINE HCL 100 MG TABLET (FP) PO SCH (21:17)
[2021-05-24] MEDS: LIDOCAINE PATCH REMOVAL MC SCH (21:17)
[2021-05-25] MEDS ORDERED: METHADONE 40 MG, METHADONE 5 MG PO ONE (06:00)
[2021-05-25] MEDS ORDERED: METHADONE HCL 10 MG TABLET PO ONE (06:00)
[2021-05-25] MEDS ORDERED: METHADONE HCL 40 MG DISPERSABLE TABLET ONE (06:44)
[2021-05-25] MEDS ORDERED: METHADONE HCL 5 MG TABLET ONE (06:44)
[2021-05-25] MEDS: METHOCARBAMOL 500 MG TABLET PO PRN ×3 (06:46→21:13)
[2021-05-25] MEDS ORDERED: PT OWN MED DRAWER 7, Y5N ONE (08:51)
[2021-05-25] MEDS: BICTEGRAV/EMTRICIT/TENOFOV (BIKTARVY) 50-200-25 MG TABLET PO SCH (09:05)
[2021-05-25] MEDS: PRENATAL VITAMINS W/ FOLIC ACID TABLET (FP) PO SCH (09:05)
[2021-05-25] MEDS: LIDOCAINE 5% TOPICAL PATCH TP SCH (09:05)
[2021-05-25] MEDS: IBUPROFEN 400 MG TABLET (FP) PO PRN ×2 (09:06→19:31)
[2021-05-25] MEDS: NICOTINE 14 MG/24 HOURS TOPICAL PATCH TD SCH (09:06)
[2021-05-25] MEDS ORDERED: BICTEGRAV/EMTRICIT/TENOFOV (BIKTARVY) 50-200-25 MG TABLET PO SCH (10:00)
[2021-05-25] MEDS: hydrOXYzine PAMOATE 50 MG CAPSULE (FP) PO PRN ×2 (10:46→17:50)
[2021-05-25] MEDS: busPIRone HCL 10 MG TABLET (FP) PO SCH ×2 (11:10→21:13)
[2021-05-25 16:44] LABS: PH,URINE 5.5 (5.0-8.0); URINE APPEARANCE CLEAR; URINE BILIRUBIN NEGATIVE (NEGATIVE); URINE COLOR YELLOW; URINE GLUCOSE (UA) NEGATIVE (NEGATIVE); URINE KETONE NEGATIVE (NEGATIVE); URINE LEUK ESTERASE NEGATIVE (NEGATIVE); URINE NITRITE NEGATIVE (NEGATIVE); URINE PROTEIN NEGATIVE (NEGATIVE)
[2021-05-25] MEDS: THIAMINE HCL 100 MG TABLET (FP) PO SCH (21:13)
[2021-05-25] MEDS: LIDOCAINE PATCH REMOVAL MC SCH (21:14)
[2021-05-25] MEDS ORDERED: SUVOREXANT 15 MG TABLET PO PRN (22:00)
[2021-05-26] MEDS ORDERED: METHADONE HCL 10 MG TABLET PO ONE (06:00)
[2021-05-26] MEDS ORDERED: METHADONE 40 MG, METHADONE 10 MG, METHADONE 5 MG PO ONE (06:00)
[2021-05-26] MEDS ORDERED: METHADONE HCL 10 MG TABLET ONE (06:16)
[2021-05-26] MEDS ORDERED: METHADONE HCL 5 MG TABLET ONE (06:16)
[2021-05-26] MEDS ORDERED: METHADONE HCL 40 MG DISPERSABLE TABLET ONE (06:16)
[2021-05-26] MEDS: METHOCARBAMOL 500 MG TABLET PO PRN ×3 (06:18→21:19)
[2021-05-26] MEDS ORDERED: PT OWN MED DRAWER 7, Y5N ONE ×2 (06:19→08:53)
[2021-05-26] MEDS: BICTEGRAV/EMTRICIT/TENOFOV (BIKTARVY) 50-200-25 MG TABLET PO SCH (07:33)
[2021-05-26] MEDS: busPIRone HCL 10 MG TABLET (FP) PO SCH (09:39)
[2021-05-26] MEDS: PRENATAL VITAMINS W/ FOLIC ACID TABLET (FP) PO SCH (09:40)
[2021-05-26] MEDS: NICOTINE 14 MG/24 HOURS TOPICAL PATCH TD SCH (09:40)
[2021-05-26] MEDS: LIDOCAINE 5% TOPICAL PATCH TP SCH (09:40)
[2021-05-26] MEDS: hydrOXYzine PAMOATE 50 MG CAPSULE (FP) PO PRN (14:21)
[2021-05-26] MEDS ORDERED: ARIPiprazole 5 MG TABLET PO STA (16:15)
[2021-05-26] MEDS ORDERED: SUVOREXANT 15 MG TABLET PO PRN (16:16)
[2021-05-26] MEDS: SUVOREXANT 10 MG TABLET PO PRN (21:18)
[2021-05-26] MEDS: THIAMINE HCL 100 MG TABLET (FP) PO SCH (21:19)
[2021-05-26] MEDS: LIDOCAINE PATCH REMOVAL MC SCH (21:57)
[2021-05-27] MEDS: IBUPROFEN 400 MG TABLET (FP) PO PRN ×2 (00:39→23:56)
[2021-05-27] MEDS ORDERED: METHADONE HCL 10 MG TABLET PO SCH (06:00)
[2021-05-27] MEDS ORDERED: METHADONE HCL 10 MG TABLET ONE (06:10)
[2021-05-27] MEDS ORDERED: METHADONE HCL 40 MG DISPERSABLE TABLET ONE (06:10)
[2021-05-27] MEDS ORDERED: METHADONE HCL 5 MG TABLET ONE (06:10)
[2021-05-27] MEDS: METHADONE 40 MG, METHADONE 20 MG, METHADONE 5 MG PO SCH (06:36)
[2021-05-27] MEDS: hydrOXYzine PAMOATE 50 MG CAPSULE (FP) PO PRN ×2 (06:37→17:21)
[2021-05-27] MEDS ORDERED: PT OWN MED DRAWER 7, Y5N ONE (07:13)
[2021-05-27] MEDS ORDERED: MENTHOL/PHENOL 1 EACH UD MM PRN (08:31)
[2021-05-27] MEDS: BICTEGRAV/EMTRICIT/TENOFOV (BIKTARVY) 50-200-25 MG TABLET PO SCH (08:36)
[2021-05-27] MEDS: PRENATAL VITAMINS W/ FOLIC ACID TABLET (FP) PO SCH (09:07)
[2021-05-27] MEDS: LIDOCAINE 5% TOPICAL PATCH TP SCH (09:08)
[2021-05-27] MEDS: NICOTINE 14 MG/24 HOURS TOPICAL PATCH TD SCH (09:08)
[2021-05-27] MEDS: METHOCARBAMOL 500 MG TABLET PO PRN ×2 (09:15→17:21)
[2021-05-27] MEDS: ARIPiprazole 5 MG TABLET PO SCH (09:18)
[2021-05-27] MEDS ORDERED: COVID-19 VAC,AD26(JANSSEN)/PF 0.5 ML IM ONE (11:00)
[2021-05-27] MEDS: ACETAMINOPHEN 325 MG TABLET (FP) PO PRN (11:48)
[2021-05-27] MEDS: THIAMINE HCL 100 MG TABLET (FP) PO SCH (21:20)
[2021-05-27] MEDS: SUVOREXANT 10 MG TABLET PO PRN (21:21)
[2021-05-27] MEDS: LIDOCAINE PATCH REMOVAL MC SCH (21:21)
[2021-05-28] MEDS ORDERED: METHADONE HCL 40 MG DISPERSABLE TABLET ONE (06:09)
[2021-05-28] MEDS ORDERED: METHADONE HCL 10 MG TABLET ONE (06:09)
[2021-05-28] MEDS ORDERED: METHADONE HCL 5 MG TABLET ONE (06:09)
[2021-05-28] MEDS: METHADONE 40 MG, METHADONE 20 MG, METHADONE 5 MG PO SCH (06:27)
[2021-05-28] MEDS ORDERED: PT OWN MED DRAWER 7, Y5N ONE (06:28)
[2021-05-28] MEDS: METHOCARBAMOL 500 MG TABLET PO PRN (06:29)
[2021-05-28 07:11] VITALS: TEMP 97.1
[2021-05-28] MEDS: BICTEGRAV/EMTRICIT/TENOFOV (BIKTARVY) 50-200-25 MG TABLET PO SCH (07:46)
[2021-05-28 08:43] VITALS: BP 125/82; PULSE 75
[2021-05-28] MEDS ORDERED: ONDANSETRON *ODT* 4 MG TABLET SL PRN (09:14)
[2021-05-28] MEDS ORDERED: GABAPENTIN 300 MG CAPSULE PO ONE (09:38)
[2021-05-28] MEDS: PRENATAL VITAMINS W/ FOLIC ACID TABLET (FP) PO SCH (10:50)
[2021-05-28] MEDS: LIDOCAINE 5% TOPICAL PATCH TP SCH (10:50)
[2021-05-28] MEDS: NICOTINE 14 MG/24 HOURS TOPICAL PATCH TD SCH (10:50)
[2021-05-28] MEDS: ARIPiprazole 5 MG TABLET PO SCH (10:50)
== END 2021-05-28 11:07 | disposition home or self-care (01) | DRG 772 ==
LOC: YASAS 16:16 → Y3E 05-23 01:41
PROVIDERS: ADMIT Allergy & Immunology; ATTEND Allergy & Immunology
PROC: HZ42ZZZ Group Counseling for Substance Abuse Treatment, Cognitive-Behavioral (ICD-10-PCS; principal; 2021-05-23)
DX: F14.20 Cocaine dependence, uncomplicated (principal); F11.20 Opioid dependence, uncomplicated; F13.20 Sedative, hypnotic or anxiolytic dependence, uncomplicated; F17.210 Nicotine dependence, cigarettes, uncomplicated; F19.280 Other psychoactive substance dependence with psychoactive substance-induced anxiety disorder; F19.282 Other psychoactive substance dependence with psychoactive substance-induced sleep disorder; F19.24 Other psychoactive substance dependence with psychoactive substance-induced mood disorder; F41.1 Generalized anxiety disorder; B20 Human immunodeficiency virus [HIV] disease; G47.00 Insomnia, unspecified; M54.5 Low back pain; G89.29 Other chronic pain; Z86.69 Personal history of other diseases of the nervous system and sense organs; Z87.09 Personal history of other diseases of the respiratory system; Z88.2 Allergy status to sulfonamides
CPT/HCPCS: 0031A; 36415; 80053; 81003; 85027; 86593; 86780; 91303; C9803; U0003; U0005

== ENCOUNTER 2021-07-26 10:59 | Inpatient (IN) | payer OTHER ==
[2021-07-26 11:30] VITALS: BMI 22.7
[2021-07-26] MEDS ORDERED: MAG HYDROX/AL HYDROX/SIMETH 30 ML UNIT-DOSE CUP PO PRN (15:00)
[2021-07-26] MEDS ORDERED: MAGNESIUM CITRATE 300 ML BOTTLE PO PRN (15:00)
[2021-07-26] MEDS ORDERED: LOPERAMIDE HCL 2 MG CAPSULE PO PRN (15:00)
[2021-07-26] MEDS ORDERED: NALOXONE HCL 0.4 MG/ML VIAL IM PRN (15:00)
[2021-07-26] MEDS ORDERED: guaiFENesin 200 MG/10 ML 10 ML UNIT-DOSE CUPS PO PRN (15:00)
[2021-07-26] MEDS ORDERED: MAGNESIUM HYDROX 2400MG/30ML ORAL SUSPENSION 30 ML CUP PO PRN (15:00)
[2021-07-26] MEDS ORDERED: P-EPHED 60MG/TRIPROLIDI 2.5MG TABLET PO PRN (15:00)
[2021-07-26] MEDS ORDERED: ACETAMINOPHEN 325 MG TABLET (FP) PO PRN (15:00)
[2021-07-26] MEDS ORDERED: ALBUTEROL SO4 HFA INHALER IH PRN (15:07)
[2021-07-26] MEDS ORDERED: LORATADINE 10 MG TABLET PO PRN (15:09)
[2021-07-26] MEDS: IBUPROFEN 400 MG TABLET (FP) PO PRN (18:44)
[2021-07-26] MEDS ORDERED: LIDOCAINE 5% TOPICAL PATCH TP ONE (18:47)
[2021-07-26] MEDS: NICOTINE 10 MG CARTRIDGE (INHALER) IH PRN (19:02)
[2021-07-26] MEDS: hydrOXYzine PAMOATE 25 MG CAPSULE (FP) PO PRN (21:26)
[2021-07-26] MEDS ORDERED: MELATONIN 5 MG TABLETS PO SCH (22:00)
[2021-07-26] MEDS ORDERED: THIAMINE HCL 100 MG TABLET (FP) PO SCH (22:00)
[2021-07-26] MEDS ORDERED: LIDOCAINE PATCH REMOVAL MC SCH (22:00)
[2021-07-27 07:10] VITALS: BP 108/61; PULSE 55; TEMP 96.8
[2021-07-27] MEDS ORDERED: methaDONE HCL 10 MG TABLET PO SCH (07:15)
[2021-07-27] MEDS ORDERED: methaDONE HCL 40 MG DISPERSABLE TABLET ONE (07:38)
[2021-07-27] MEDS ORDERED: methaDONE HCL 10 MG TABLET ONE (07:38)
[2021-07-27] MEDS: NICOTINE 10 MG CARTRIDGE (INHALER) IH PRN ×2 (07:43→14:22)
[2021-07-27] MEDS ORDERED: METHADONE PO SCH (07:45)
[2021-07-27] MEDS ORDERED: BICTEGRAV/EMTRICIT/TENOFOV (BIKTARVY) 50-200-25 MG TABLET PO SCH (08:00)
[2021-07-27] MEDS ORDERED: LORATADINE 10 MG TABLET PO SCH (10:00)
[2021-07-27] MEDS ORDERED: NICOTINE 7 MG/24 HOURS TOPICAL PATCH TD SCH (10:00)
[2021-07-27] MEDS ORDERED: PRENATAL VITAMINS W/ FOLIC ACID TABLET (FP) PO SCH (10:00)
[2021-07-27] MEDS: hydrOXYzine PAMOATE 25 MG CAPSULE (FP) PO PRN ×2 (10:29→14:03)
[2021-07-27] MEDS: IBUPROFEN 400 MG TABLET (FP) PO PRN (10:30)
[2021-07-27] MEDS ORDERED: LIDOCAINE PATCH REMOVAL MC SCH (10:40)
[2021-07-27] MEDS ORDERED: AMMONIUM LACTATE 12% LOTION 225 GM BOTTLE TP PRN (10:42)
[2021-07-27 10:46] LABS: HEMOGLOBIN 12.6 GM/dL (11.7-16.9); MEAN CELL VOLUME 94.3 fl (80-96); MEAN PLT VOLUME 7.8 fl (7.5-11.1); PLATELET COUNT 316 10^3/uL (134-434); RBC 3.82 M/mm3 (4.00-5.60); RDW 13.2 % (11.9-15.9); WHITE BLOOD COUNT 3.4 K/mm3 (4.0-10.0)
[2021-07-27 10:51] LABS: ALBUMIN 3.2 g/dl (3.4-5.0); CALCIUM 8.6 mg/dL (8.5-10.1)
[2021-07-27 10:52] LABS: MAGNESIUM 2.1 mg/dL (1.8-2.4)
[2021-07-27 10:54] LABS: CREATININE 1.1 mg/dL (0.55-1.3)
[2021-07-27 10:55] LABS: BILIRUBIN,TOTAL 0.4 mg/dL (0.2-1); PHOSPHOROUS 3.8 mg/dL (2.5-4.9)
[2021-07-27 10:56] LABS: TOT PROT 6.9 g/dl (6.4-8.2)
[2021-07-27] MEDS ORDERED: LIDOCAINE 5% TOPICAL PATCH TP SCH (12:00)
[2021-07-27 12:49] LABS: SYPHILIS W/ RPR CONF REACTIVE (NONREACTIVE)
[2021-07-27] MEDS ORDERED: METHOCARBAMOL 500 MG TABLET PO SCH (14:00)
== END 2021-07-27 17:25 | disposition left against medical advice (07) | DRG 770 ==
LOC: YASAS 10:59 → Y3W 15:40
PROVIDERS: ADMIT Allergy & Immunology; ATTEND Allergy & Immunology
PROC: HZ2ZZZZ Detoxification Services for Substance Abuse Treatment (ICD-10-PCS; principal; 2021-07-26)
DX: F11.20 Opioid dependence, uncomplicated (principal); F14.20 Cocaine dependence, uncomplicated; F17.210 Nicotine dependence, cigarettes, uncomplicated; F31.9 Bipolar disorder, unspecified; Z21 Asymptomatic human immunodeficiency virus [HIV] infection status; J45.909 Unspecified asthma, uncomplicated; R63.4 Abnormal weight loss; Z68.22 Body mass index [BMI] 22.0-22.9, adult; Z88.0 Allergy status to penicillin; Z88.2 Allergy status to sulfonamides; Z56.0 Unemployment, unspecified
CPT/HCPCS: 36415; 80053; 83735; 84100; 85027; 86593; 86780; 86803; C9803; U0003; U0005

== ENCOUNTER 2021-08-01 12:27 | Inpatient (IN) | payer OTHER ==
[2021-08-01 23:37] VITALS: BMI 23.0
[2021-08-02] MEDS ORDERED: ACETAMINOPHEN 325 MG TABLET (FP) PO PRN (01:14)
[2021-08-02] MEDS ORDERED: guaiFENesin 200 MG/10 ML 10 ML UNIT-DOSE CUPS PO PRN (01:14)
[2021-08-02] MEDS ORDERED: MENTHOL/PHENOL 1 EACH UD MM PRN (01:14)
[2021-08-02] MEDS ORDERED: P-EPHED 60MG/TRIPROLIDI 2.5MG TABLET PO PRN (01:14)
[2021-08-02] MEDS ORDERED: LOPERAMIDE HCL 2 MG CAPSULE PO PRN (01:14)
[2021-08-02] MEDS ORDERED: MAGNESIUM HYDROX 2400MG/30ML ORAL SUSPENSION 30 ML CUP PO PRN (01:14)
[2021-08-02] MEDS ORDERED: MAG HYDROX/AL HYDROX/SIMETH 30 ML UNIT-DOSE CUP PO PRN (01:14)
[2021-08-02] MEDS ORDERED: MAGNESIUM CITRATE 300 ML BOTTLE PO PRN (01:14)
[2021-08-02] MEDS ORDERED: hydrOXYzine PAMOATE 25 MG CAPSULE (FP) PO PRN (01:14)
[2021-08-02] MEDS ORDERED: ALBUTEROL SO4 HFA INHALER IH PRN (01:16)
[2021-08-02 02:05] VITALS: BP 108/58; PULSE 72; TEMP 97.6
[2021-08-02] MEDS ORDERED: methaDONE HCL 40 MG DISPERSABLE TABLET PO SCH (08:15)
[2021-08-02] MEDS ORDERED: methaDONE HCL 10 MG TABLET ONE (09:47)
[2021-08-02] MEDS ORDERED: methaDONE HCL 40 MG DISPERSABLE TABLET ONE (09:47)
[2021-08-02] MEDS: IBUPROFEN 400 MG TABLET (FP) PO PRN ×2 (09:48→17:33)
[2021-08-02] MEDS: NICOTINE 10 MG CARTRIDGE (INHALER) IH PRN ×2 (09:50→16:27)
[2021-08-02] MEDS ORDERED: NICOTINE 14 MG/24 HOURS TOPICAL PATCH TD SCH (10:00)
[2021-08-02] MEDS ORDERED: BICTEGRAV/EMTRICIT/TENOFOV (BIKTARVY) 50-200-25 MG TABLET PO SCH (10:00)
[2021-08-02] MEDS ORDERED: PRENATAL VITAMINS W/ FOLIC ACID TABLET (FP) PO SCH (10:00)
[2021-08-02] MEDS: hydrOXYzine PAMOATE 50 MG CAPSULE (FP) PO PRN ×2 (11:23→14:26)
[2021-08-02] MEDS ORDERED: LIDOCAINE 5% TOPICAL PATCH TP SCH (12:30)
[2021-08-02] MEDS: METHOCARBAMOL 500 MG TABLET PO PRN ×2 (12:57→14:17)
[2021-08-02] MEDS ORDERED: busPIRone HCL 10 MG TABLET (FP) PO SCH (14:00)
[2021-08-02] MEDS ORDERED: MELATONIN 5 MG TABLETS PO SCH (22:00)
[2021-08-02] MEDS ORDERED: SUVOREXANT 15 MG TABLET PO PRN (22:00)
[2021-08-02] MEDS ORDERED: LIDOCAINE PATCH REMOVAL MC SCH (22:00)
[2021-08-02] MEDS ORDERED: THIAMINE HCL 100 MG TABLET (FP) PO SCH (22:00)
== END 2021-08-02 18:19 | disposition left against medical advice (07) | DRG 770 ==
LOC: YASAS 12:27 → Y3W 08-02 01:00
PROVIDERS: ADMIT Allergy & Immunology; ATTEND Allergy & Immunology
PROC: HZ2ZZZZ Detoxification Services for Substance Abuse Treatment (ICD-10-PCS; principal; 2021-08-02)
DX: F11.20 Opioid dependence, uncomplicated (principal); F14.20 Cocaine dependence, uncomplicated; F17.210 Nicotine dependence, cigarettes, uncomplicated; F19.280 Other psychoactive substance dependence with psychoactive substance-induced anxiety disorder; F19.282 Other psychoactive substance dependence with psychoactive substance-induced sleep disorder; F41.9 Anxiety disorder, unspecified; B20 Human immunodeficiency virus [HIV] disease; G40.909 Epilepsy, unspecified, not intractable, without status epilepticus; M54.5 Low back pain; H18.602 Keratoconus, unspecified, left eye; Z88.8 Allergy status to other drugs, medicaments and biological substances
CPT/HCPCS: C9803; U0003; U0005

== ENCOUNTER 2021-08-10 16:39 | Inpatient (IN) | payer OTHER ==
[2021-08-10] MEDS ORDERED: MAG HYDROX/AL HYDROX/SIMETH 30 ML UNIT-DOSE CUP PO PRN (20:18)
[2021-08-10] MEDS ORDERED: MAGNESIUM CITRATE 300 ML BOTTLE PO PRN (20:18)
[2021-08-10] MEDS ORDERED: guaiFENesin 200 MG/10 ML 10 ML UNIT-DOSE CUPS PO PRN (20:18)
[2021-08-10] MEDS ORDERED: P-EPHED 60MG/TRIPROLIDI 2.5MG TABLET PO PRN (20:18)
[2021-08-10] MEDS ORDERED: LOPERAMIDE HCL 2 MG CAPSULE PO PRN (20:18)
[2021-08-10] MEDS ORDERED: MENTHOL/PHENOL 1 EACH UD MM PRN (20:18)
[2021-08-10] MEDS ORDERED: MAGNESIUM HYDROX 2400MG/30ML ORAL SUSPENSION 30 ML CUP PO PRN (20:18)
[2021-08-10] MEDS ORDERED: ACETAMINOPHEN 325 MG TABLET (FP) PO PRN (20:18)
[2021-08-10] MEDS ORDERED: COLLOIDAL OATMEAL 1 BAR EACH TP PRN (20:19)
[2021-08-10 21:07] VITALS: BMI 20.5
[2021-08-10] MEDS: METHOCARBAMOL 500 MG TABLET PO PRN (22:48)
[2021-08-10] MEDS: THIAMINE HCL 100 MG TABLET (FP) PO SCH (22:48)
[2021-08-10] MEDS: hydrOXYzine PAMOATE 25 MG CAPSULE (FP) PO PRN (22:48)
[2021-08-10] MEDS: MELATONIN 5 MG TABLETS PO SCH (22:49)
[2021-08-10] MEDS: METHYL SALICYLATE/MENTHOL OINT 30 GM TUBE TP SCH (22:49)
[2021-08-11] MEDS ORDERED: methaDONE HCL 10 MG TABLET ONE (09:11)
[2021-08-11] MEDS ORDERED: methaDONE HCL 40 MG DISPERSABLE TABLET ONE (09:11)
[2021-08-11] MEDS ORDERED: methaDONE HCL 10 MG TABLET PO ONE (10:00)
[2021-08-11] MEDS ORDERED: LIDOCAINE 5% TOPICAL PATCH TP SCH (10:00)
[2021-08-11] MEDS: hydrOXYzine PAMOATE 25 MG CAPSULE (FP) PO PRN ×3 (10:25→21:28)
[2021-08-11] MEDS: PRENATAL VITAMINS W/ FOLIC ACID TABLET (FP) PO SCH (10:25)
[2021-08-11] MEDS: NICOTINE 7 MG/24 HOURS TOPICAL PATCH TD SCH (10:25)
[2021-08-11] MEDS: METHOCARBAMOL 500 MG TABLET PO PRN ×3 (10:25→21:28)
[2021-08-11] MEDS: BICTEGRAV/EMTRICIT/TENOFOV (BIKTARVY) 50-200-25 MG TABLET PO SCH (10:25)
[2021-08-11] MEDS: METHYL SALICYLATE/MENTHOL OINT 30 GM TUBE TP SCH ×2 (10:26→21:29)
[2021-08-11] MEDS: LIDOCAINE 5% TOPICAL PATCH TP SCH (12:36)
[2021-08-11] MEDS: NICOTINE 10 MG CARTRIDGE (INHALER) IH PRN ×2 (14:11→18:04)
[2021-08-11] MEDS: NICOTINE POLACRILEX 2 MG GUM BUC PRN (16:32)
[2021-08-11] MEDS: MELATONIN 5 MG TABLETS PO SCH (21:27)
[2021-08-11] MEDS: THIAMINE HCL 100 MG TABLET (FP) PO SCH (21:28)
[2021-08-11] MEDS: LIDOCAINE PATCH REMOVAL MC SCH (21:29)
[2021-08-11] MEDS ORDERED: LIDOCAINE PATCH REMOVAL MC SCH (22:00)
[2021-08-12] MEDS ORDERED: methaDONE HCL 40 MG DISPERSABLE TABLET ONE (05:58)
[2021-08-12] MEDS ORDERED: methaDONE HCL 10 MG TABLET ONE (05:59)
[2021-08-12] MEDS ORDERED: methaDONE HCL 10 MG TABLET PO SCH (06:00)
[2021-08-12] MEDS ORDERED: SUVOREXANT 10 MG TABLET PO PRN ×2 (08:54→08:55)
[2021-08-12] MEDS ORDERED: SUVOREXANT 15 MG TABLET PO PRN (09:02)
[2021-08-12] MEDS: METHOCARBAMOL 500 MG TABLET PO PRN ×2 (09:44→17:04)
[2021-08-12] MEDS: PRENATAL VITAMINS W/ FOLIC ACID TABLET (FP) PO SCH (09:44)
[2021-08-12] MEDS: BICTEGRAV/EMTRICIT/TENOFOV (BIKTARVY) 50-200-25 MG TABLET PO SCH (09:44)
[2021-08-12] MEDS: LIDOCAINE 5% TOPICAL PATCH TP SCH (09:45)
[2021-08-12] MEDS: METHYL SALICYLATE/MENTHOL OINT 30 GM TUBE TP SCH ×2 (09:45→21:26)
[2021-08-12] MEDS: NICOTINE 7 MG/24 HOURS TOPICAL PATCH TD SCH (09:45)
[2021-08-12] MEDS: NICOTINE 10 MG CARTRIDGE (INHALER) IH PRN ×4 (09:46→23:05)
[2021-08-12] MEDS: GABAPENTIN 100 MG CAPSULE PO SCH ×2 (14:00→21:26)
[2021-08-12] MEDS ORDERED: hydrOXYzine PAMOATE 25 MG CAPSULE (FP) PO PRN ×2 (14:07→16:31)
[2021-08-12] MEDS ORDERED: MASKS NR ONE (19:36)
[2021-08-12] MEDS ORDERED: PT OWN MED DRAWER 7, Y5N ONE (20:55)
[2021-08-12] MEDS: THIAMINE HCL 100 MG TABLET (FP) PO SCH (21:26)
[2021-08-12] MEDS: LIDOCAINE PATCH REMOVAL MC SCH (22:51)
[2021-08-13] MEDS ORDERED: methaDONE HCL 40 MG DISPERSABLE TABLET ONE (03:18)
[2021-08-13] MEDS ORDERED: methaDONE HCL 10 MG TABLET ONE (03:19)
[2021-08-13] MEDS: GABAPENTIN 100 MG CAPSULE PO SCH ×4 (06:24→21:19)
[2021-08-13] MEDS: NICOTINE 10 MG CARTRIDGE (INHALER) IH PRN ×4 (08:59→21:21)
[2021-08-13] MEDS: BICTEGRAV/EMTRICIT/TENOFOV (BIKTARVY) 50-200-25 MG TABLET PO SCH (10:11)
[2021-08-13] MEDS: PRENATAL VITAMINS W/ FOLIC ACID TABLET (FP) PO SCH (10:12)
[2021-08-13] MEDS: NICOTINE 7 MG/24 HOURS TOPICAL PATCH TD SCH (10:12)
[2021-08-13] MEDS: LIDOCAINE 5% TOPICAL PATCH TP SCH (10:12)
[2021-08-13] MEDS: METHYL SALICYLATE/MENTHOL OINT 30 GM TUBE TP SCH ×2 (10:12→21:20)
[2021-08-13] MEDS: METHOCARBAMOL 500 MG TABLET PO PRN (16:20)
[2021-08-13] MEDS: LIDOCAINE PATCH REMOVAL MC SCH (21:20)
[2021-08-13] MEDS: SUVOREXANT 10 MG TABLET PO PRN (21:20)
[2021-08-13] MEDS: THIAMINE HCL 100 MG TABLET (FP) PO SCH (21:20)
[2021-08-14] MEDS ORDERED: methaDONE HCL 10 MG TABLET ONE (02:48)
[2021-08-14] MEDS ORDERED: methaDONE HCL 40 MG DISPERSABLE TABLET ONE (02:48)
[2021-08-14] MEDS: GABAPENTIN 100 MG CAPSULE PO SCH ×3 (06:50→21:15)
[2021-08-14] MEDS: NICOTINE 10 MG CARTRIDGE (INHALER) IH PRN ×4 (06:51→19:51)
[2021-08-14] MEDS: BICTEGRAV/EMTRICIT/TENOFOV (BIKTARVY) 50-200-25 MG TABLET PO SCH (09:45)
[2021-08-14] MEDS: PRENATAL VITAMINS W/ FOLIC ACID TABLET (FP) PO SCH (09:45)
[2021-08-14] MEDS: METHYL SALICYLATE/MENTHOL OINT 30 GM TUBE TP SCH ×2 (09:45→22:24)
[2021-08-14] MEDS: hydrOXYzine PAMOATE 25 MG CAPSULE (FP) PO PRN ×3 (09:46→19:51)
[2021-08-14] MEDS: NICOTINE 7 MG/24 HOURS TOPICAL PATCH TD SCH (09:46)
[2021-08-14] MEDS: METHOCARBAMOL 500 MG TABLET PO PRN ×2 (09:46→16:48)
[2021-08-14] MEDS: LIDOCAINE 5% TOPICAL PATCH TP SCH (09:46)
[2021-08-14] MEDS: ALBUTEROL SO4 HFA INHALER IH PRN (12:13)
[2021-08-14] MEDS: THIAMINE HCL 100 MG TABLET (FP) PO SCH (21:15)
[2021-08-14] MEDS: SUVOREXANT 10 MG TABLET PO PRN (21:15)
[2021-08-14] MEDS: LIDOCAINE PATCH REMOVAL MC SCH (21:16)
[2021-08-15] MEDS: NICOTINE 10 MG CARTRIDGE (INHALER) IH PRN ×4 (00:35→21:18)
[2021-08-15] MEDS ORDERED: methaDONE HCL 10 MG TABLET ONE (03:14)
[2021-08-15] MEDS ORDERED: methaDONE HCL 40 MG DISPERSABLE TABLET ONE (03:14)
[2021-08-15] MEDS: GABAPENTIN 100 MG CAPSULE PO SCH ×3 (06:29→21:16)
[2021-08-15] MEDS: PRENATAL VITAMINS W/ FOLIC ACID TABLET (FP) PO SCH (10:30)
[2021-08-15] MEDS: hydrOXYzine PAMOATE 25 MG CAPSULE (FP) PO PRN ×2 (10:30→13:59)
[2021-08-15] MEDS: METHYL SALICYLATE/MENTHOL OINT 30 GM TUBE TP SCH ×2 (10:30→21:17)
[2021-08-15] MEDS: METHOCARBAMOL 500 MG TABLET PO PRN ×2 (10:30→19:18)
[2021-08-15] MEDS: BICTEGRAV/EMTRICIT/TENOFOV (BIKTARVY) 50-200-25 MG TABLET PO SCH (10:30)
[2021-08-15] MEDS: NICOTINE 7 MG/24 HOURS TOPICAL PATCH TD SCH (10:31)
[2021-08-15] MEDS: ALBUTEROL SO4 HFA INHALER IH PRN (10:31)
[2021-08-15] MEDS: LIDOCAINE 5% TOPICAL PATCH TP SCH (10:31)
[2021-08-15] MEDS: IBUPROFEN 400 MG TABLET (FP) PO PRN (17:09)
[2021-08-15] MEDS: THIAMINE HCL 100 MG TABLET (FP) PO SCH (21:16)
[2021-08-15] MEDS: SUVOREXANT 10 MG TABLET PO PRN (21:17)
[2021-08-15] MEDS: LIDOCAINE PATCH REMOVAL MC SCH (21:18)
[2021-08-16] MEDS ORDERED: methaDONE HCL 40 MG DISPERSABLE TABLET ONE (03:11)
[2021-08-16] MEDS ORDERED: methaDONE HCL 10 MG TABLET ONE (03:12)
[2021-08-16] MEDS: NICOTINE 10 MG CARTRIDGE (INHALER) IH PRN ×6 (06:18→22:57)
[2021-08-16] MEDS: GABAPENTIN 100 MG CAPSULE PO SCH ×3 (06:18→21:11)
[2021-08-16] MEDS: METHYL SALICYLATE/MENTHOL OINT 30 GM TUBE TP SCH ×2 (09:57→21:12)
[2021-08-16] MEDS: NICOTINE 7 MG/24 HOURS TOPICAL PATCH TD SCH (09:57)
[2021-08-16] MEDS: LIDOCAINE 5% TOPICAL PATCH TP SCH (09:57)
[2021-08-16] MEDS: BICTEGRAV/EMTRICIT/TENOFOV (BIKTARVY) 50-200-25 MG TABLET PO SCH (09:57)
[2021-08-16] MEDS: METHOCARBAMOL 500 MG TABLET PO PRN ×2 (09:57→17:41)
[2021-08-16] MEDS: PRENATAL VITAMINS W/ FOLIC ACID TABLET (FP) PO SCH (09:57)
[2021-08-16] MEDS: hydrOXYzine PAMOATE 25 MG CAPSULE (FP) PO PRN ×2 (09:58→17:41)
[2021-08-16] MEDS: IBUPROFEN 400 MG TABLET (FP) PO PRN (17:41)
[2021-08-16] MEDS: THIAMINE HCL 100 MG TABLET (FP) PO SCH (21:11)
[2021-08-16] MEDS: SUVOREXANT 20 MG TABLET PO PRN (21:12)
[2021-08-16] MEDS: LIDOCAINE PATCH REMOVAL MC SCH (21:13)
[2021-08-16] MEDS: NICOTINE POLACRILEX 2 MG GUM BUC PRN (22:14)
[2021-08-17] MEDS ORDERED: methaDONE HCL 10 MG TABLET ONE (03:09)
[2021-08-17] MEDS ORDERED: methaDONE HCL 40 MG DISPERSABLE TABLET ONE (03:09)
[2021-08-17] MEDS: GABAPENTIN 100 MG CAPSULE PO SCH ×3 (06:22→21:14)
[2021-08-17] MEDS: NICOTINE 10 MG CARTRIDGE (INHALER) IH PRN ×5 (06:24→23:00)
[2021-08-17] MEDS: LIDOCAINE 5% TOPICAL PATCH TP SCH (10:09)
[2021-08-17] MEDS: PRENATAL VITAMINS W/ FOLIC ACID TABLET (FP) PO SCH (10:09)
[2021-08-17] MEDS: NICOTINE 7 MG/24 HOURS TOPICAL PATCH TD SCH (10:09)
[2021-08-17] MEDS: METHYL SALICYLATE/MENTHOL OINT 30 GM TUBE TP SCH ×2 (10:09→21:16)
[2021-08-17] MEDS: BICTEGRAV/EMTRICIT/TENOFOV (BIKTARVY) 50-200-25 MG TABLET PO SCH (10:09)
[2021-08-17] MEDS: ALBUTEROL SO4 HFA INHALER IH PRN (10:10)
[2021-08-17] MEDS: IBUPROFEN 400 MG TABLET (FP) PO PRN ×2 (11:03→16:59)
[2021-08-17] MEDS: METHOCARBAMOL 500 MG TABLET PO PRN ×2 (12:44→14:35)
[2021-08-17] MEDS: hydrOXYzine PAMOATE 25 MG CAPSULE (FP) PO PRN (12:44)
[2021-08-17] MEDS: THIAMINE HCL 100 MG TABLET (FP) PO SCH (21:14)
[2021-08-17] MEDS: SUVOREXANT 20 MG TABLET PO PRN (21:15)
[2021-08-17] MEDS: LIDOCAINE PATCH REMOVAL MC SCH (21:16)
[2021-08-18] MEDS ORDERED: methaDONE HCL 40 MG DISPERSABLE TABLET ONE (05:58)
[2021-08-18] MEDS ORDERED: methaDONE HCL 10 MG TABLET ONE (05:58)
[2021-08-18] MEDS: GABAPENTIN 100 MG CAPSULE PO SCH ×3 (06:43→21:28)
[2021-08-18] MEDS: IBUPROFEN 400 MG TABLET (FP) PO PRN (06:43)
[2021-08-18] MEDS: NICOTINE 10 MG CARTRIDGE (INHALER) IH PRN ×4 (06:45→16:58)
[2021-08-18] MEDS: NICOTINE 7 MG/24 HOURS TOPICAL PATCH TD SCH (10:16)
[2021-08-18] MEDS: PRENATAL VITAMINS W/ FOLIC ACID TABLET (FP) PO SCH (10:16)
[2021-08-18] MEDS: BICTEGRAV/EMTRICIT/TENOFOV (BIKTARVY) 50-200-25 MG TABLET PO SCH (10:16)
[2021-08-18] MEDS: METHYL SALICYLATE/MENTHOL OINT 30 GM TUBE TP SCH ×2 (10:17→21:29)
[2021-08-18] MEDS: LIDOCAINE 5% TOPICAL PATCH TP SCH (10:17)
[2021-08-18] MEDS ORDERED: SUVOREXANT 20 MG TABLET PO PRN (11:08)
[2021-08-18] MEDS: METHOCARBAMOL 500 MG TABLET PO PRN (13:44)
[2021-08-18] MEDS: hydrOXYzine PAMOATE 25 MG CAPSULE (FP) PO PRN (16:58)
[2021-08-18] MEDS: THIAMINE HCL 100 MG TABLET (FP) PO SCH (21:28)
[2021-08-18] MEDS: LIDOCAINE PATCH REMOVAL MC SCH (21:29)
[2021-08-19] MEDS ORDERED: methaDONE HCL 40 MG DISPERSABLE TABLET ONE (03:52)
[2021-08-19] MEDS ORDERED: methaDONE HCL 10 MG TABLET ONE (03:52)
[2021-08-19] MEDS: GABAPENTIN 100 MG CAPSULE PO SCH (06:53)
[2021-08-19] MEDS: NICOTINE 10 MG CARTRIDGE (INHALER) IH PRN (06:55)
[2021-08-19 07:21] VITALS: BP 96/64; PULSE 63; TEMP 98.8
[2021-08-19] MEDS: PRENATAL VITAMINS W/ FOLIC ACID TABLET (FP) PO SCH (09:24)
[2021-08-19] MEDS: BICTEGRAV/EMTRICIT/TENOFOV (BIKTARVY) 50-200-25 MG TABLET PO SCH (09:24)
[2021-08-19] MEDS: METHOCARBAMOL 500 MG TABLET PO PRN (09:24)
[2021-08-19] MEDS: ALBUTEROL SO4 HFA INHALER IH PRN (09:24)
== END 2021-08-19 09:38 | disposition home or self-care (01) | DRG 772 ==
LOC: YASAS 16:39 → Y3W 19:36
PROVIDERS: ADMIT Allergy & Immunology; ATTEND Allergy & Immunology
PROC: HZ42ZZZ Group Counseling for Substance Abuse Treatment, Cognitive-Behavioral (ICD-10-PCS; principal; 2021-08-10)
DX: F14.20 Cocaine dependence, uncomplicated (principal); F11.20 Opioid dependence, uncomplicated; F13.20 Sedative, hypnotic or anxiolytic dependence, uncomplicated; F17.210 Nicotine dependence, cigarettes, uncomplicated; F19.280 Other psychoactive substance dependence with psychoactive substance-induced anxiety disorder; F19.282 Other psychoactive substance dependence with psychoactive substance-induced sleep disorder; F41.1 Generalized anxiety disorder; F32.9 Major depressive disorder, single episode, unspecified; F41.9 Anxiety disorder, unspecified; Z21 Asymptomatic human immunodeficiency virus [HIV] infection status; J45.909 Unspecified asthma, uncomplicated
CPT/HCPCS: C9803; U0003; U0005

== ENCOUNTER 2021-08-29 15:40 | Inpatient (IN) | payer OTHER ==
[2021-08-29 18:24] VITALS: BMI 25.1
[2021-08-29] MEDS ORDERED: MAGNESIUM CITRATE 300 ML BOTTLE PO PRN (21:55)
[2021-08-29] MEDS ORDERED: ACETAMINOPHEN 325 MG TABLET (FP) PO PRN (21:55)
[2021-08-29] MEDS ORDERED: MAGNESIUM HYDROX 2400MG/30ML ORAL SUSPENSION 30 ML CUP PO PRN (21:55)
[2021-08-29] MEDS ORDERED: LOPERAMIDE HCL 2 MG CAPSULE PO PRN (21:55)
[2021-08-29] MEDS ORDERED: P-EPHED 60MG/TRIPROLIDI 2.5MG TABLET PO PRN (21:55)
[2021-08-29] MEDS ORDERED: guaiFENesin 200 MG/10 ML 10 ML UNIT-DOSE CUPS PO PRN (21:55)
[2021-08-29] MEDS ORDERED: MAG HYDROX/AL HYDROX/SIMETH 30 ML UNIT-DOSE CUP PO PRN (21:55)
[2021-08-29] MEDS ORDERED: IBUPROFEN 400 MG TABLET (FP) PO PRN (21:55)
[2021-08-29] MEDS ORDERED: METHOCARBAMOL 500 MG TABLET PO PRN (21:58)
[2021-08-29] MEDS ORDERED: hydrOXYzine PAMOATE 25 MG CAPSULE (FP) PO PRN (21:59)
[2021-08-29] MEDS ORDERED: THIAMINE HCL 100 MG TABLET (FP) PO SCH (22:00)
[2021-08-29] MEDS ORDERED: MELATONIN 5 MG TABLETS PO SCH (22:00)
[2021-08-29] MEDS ORDERED: NICOTINE 10 MG CARTRIDGE (INHALER) IH PRN (22:24)
[2021-08-29 23:13] VITALS: BP 123/68; PULSE 76; TEMP 97.9
[2021-08-30] MEDS ORDERED: methaDONE HCL 10 MG TABLET PO SCH (07:45)
[2021-08-30] MEDS ORDERED: BICTEGRAV/EMTRICIT/TENOFOV (BIKTARVY) 50-200-25 MG TABLET PO SCH (08:00)
[2021-08-30] MEDS ORDERED: methaDONE HCL 10 MG TABLET ONE (09:09)
[2021-08-30] MEDS ORDERED: methaDONE HCL 40 MG DISPERSABLE TABLET ONE (09:09)
[2021-08-30] MEDS ORDERED: NICOTINE 14 MG/24 HOURS TOPICAL PATCH TD SCH (10:00)
[2021-08-30] MEDS ORDERED: PRENATAL VITAMINS W/ FOLIC ACID TABLET (FP) PO SCH (10:00)
== END 2021-08-30 09:37 | disposition left against medical advice (07) | DRG 770 ==
LOC: YASAS 15:40 → Y3W 21:48
PROVIDERS: ADMIT Allergy & Immunology; ATTEND Allergy & Immunology
PROC: HZ2ZZZZ Detoxification Services for Substance Abuse Treatment (ICD-10-PCS; principal; 2021-08-29)
DX: F11.20 Opioid dependence, uncomplicated (principal); F14.20 Cocaine dependence, uncomplicated; F17.210 Nicotine dependence, cigarettes, uncomplicated; F31.9 Bipolar disorder, unspecified; F41.1 Generalized anxiety disorder; F32.9 Major depressive disorder, single episode, unspecified; Z21 Asymptomatic human immunodeficiency virus [HIV] infection status; J45.909 Unspecified asthma, uncomplicated; Z86.69 Personal history of other diseases of the nervous system and sense organs; Z86.19 Personal history of other infectious and parasitic diseases; Z88.8 Allergy status to other drugs, medicaments and biological substances
CPT/HCPCS: C9803; U0003; U0005

== ENCOUNTER 2021-10-13 15:33 | Inpatient (IN) | payer OTHER ==
[2021-10-13 16:39] VITALS: BMI 24.5
[2021-10-13] MEDS ORDERED: MAGNESIUM HYDROX 2400MG/30ML ORAL SUSPENSION 30 ML CUP PO PRN (16:57)
[2021-10-13] MEDS ORDERED: IBUPROFEN 400 MG TABLET (FP) PO PRN (16:57)
[2021-10-13] MEDS ORDERED: NICOTINE POLACRILEX 2 MG GUM BC PRN (16:57)
[2021-10-13] MEDS ORDERED: MAG HYDROX/AL HYDROX/SIMETH 30 ML UNIT-DOSE CUP PO PRN (16:57)
[2021-10-13] MEDS ORDERED: LOPERAMIDE HCL 2 MG CAPSULE PO PRN (16:57)
[2021-10-13] MEDS ORDERED: guaiFENesin 200 MG/10 ML 10 ML UNIT-DOSE CUPS PO PRN (16:57)
[2021-10-13] MEDS ORDERED: ACETAMINOPHEN 325 MG TABLET (FP) PO PRN (16:57)
[2021-10-13] MEDS ORDERED: hydrOXYzine PAMOATE 25 MG CAPSULE (FP) PO PRN (16:57)
[2021-10-13] MEDS ORDERED: P-EPHED 60MG/TRIPROLIDI 2.5MG TABLET PO PRN (16:57)
[2021-10-13] MEDS ORDERED: MAGNESIUM CITRATE 300 ML BOTTLE PO PRN (16:57)
[2021-10-13] MEDS ORDERED: ALBUTEROL SO4 HFA INHALER IH PRN (16:59)
[2021-10-13] MEDS ORDERED: BICTEGRAV/EMTRICIT/TENOFOV (BIKTARVY) 50-200-25 MG TABLET PO SCH (17:00)
[2021-10-13] MEDS ORDERED: HYDROCORTISONE 0.5% TOPICAL CREAM 30 GM TUBE TP PRN (17:21)
[2021-10-13] MEDS ORDERED: diphenhydrAMINE HCL 25 MG CAPSULE (FP) PO ONE (18:30)
[2021-10-13] MEDS ORDERED: NICOTINE 10 MG CARTRIDGE (INHALER) IH PRN (21:49)
[2021-10-13] MEDS ORDERED: THIAMINE HCL 100 MG TABLET (FP) PO SCH (22:00)
[2021-10-13] MEDS ORDERED: MELATONIN 5 MG TABLETS PO SCH (22:00)
[2021-10-14 07:04] VITALS: BP 117/81; PULSE 61; TEMP 98.1
[2021-10-14] MEDS ORDERED: PRENATAL VITAMINS W/ FOLIC ACID TABLET (FP) PO SCH (10:00)
== END 2021-10-14 09:05 | disposition left against medical advice (07) | DRG 770 ==
LOC: YASAS 15:33 → Y3W 17:55
PROVIDERS: ADMIT Allergy & Immunology; ATTEND Allergy & Immunology
PROC: HZ42ZZZ Group Counseling for Substance Abuse Treatment, Cognitive-Behavioral (ICD-10-PCS; principal; 2021-10-13)
DX: F14.20 Cocaine dependence, uncomplicated (principal); F11.20 Opioid dependence, uncomplicated; F16.10 Hallucinogen abuse, uncomplicated; F17.210 Nicotine dependence, cigarettes, uncomplicated; F41.9 Anxiety disorder, unspecified; F32.A Depression, unspecified; F41.0 Panic disorder [episodic paroxysmal anxiety]; B20 Human immunodeficiency virus [HIV] disease; G40.909 Epilepsy, unspecified, not intractable, without status epilepticus; J45.909 Unspecified asthma, uncomplicated; Z87.828 Personal history of other (healed) physical injury and trauma
CPT/HCPCS: 87811; C9803; U0003; U0005

== ENCOUNTER 2021-10-27 08:28 | Inpatient (IN) | payer OTHER ==
[2021-10-27] MEDS ORDERED: guaiFENesin 200 MG/10 ML 10 ML UNIT-DOSE CUPS PO PRN (10:21)
[2021-10-27] MEDS ORDERED: P-EPHED 60MG/TRIPROLIDI 2.5MG TABLET PO PRN (10:21)
[2021-10-27] MEDS ORDERED: MAG HYDROX/AL HYDROX/SIMETH 30 ML UNIT-DOSE CUP PO PRN (10:21)
[2021-10-27] MEDS ORDERED: MAGNESIUM CITRATE 300 ML BOTTLE PO PRN (10:21)
[2021-10-27] MEDS ORDERED: LOPERAMIDE HCL 2 MG CAPSULE PO PRN (10:21)
[2021-10-27] MEDS ORDERED: IBUPROFEN 400 MG TABLET (FP) PO PRN (10:21)
[2021-10-27] MEDS ORDERED: MAGNESIUM HYDROX 2400MG/30ML ORAL SUSPENSION 30 ML CUP PO PRN (10:21)
[2021-10-27] MEDS ORDERED: ACETAMINOPHEN 325 MG TABLET (FP) PO PRN (10:21)
[2021-10-27 11:51] VITALS: BMI 24.4
[2021-10-27] MEDS ORDERED: hydrOXYzine PAMOATE 25 MG CAPSULE (FP) PO PRN (12:21)
[2021-10-27] MEDS: NICOTINE 7 MG/24 HOURS TOPICAL PATCH TD SCH (12:51)
[2021-10-27] MEDS: NICOTINE 10 MG CARTRIDGE (INHALER) IH PRN (12:51)
[2021-10-27] MEDS: PRENATAL VITAMINS W/ FOLIC ACID TABLET (FP) PO SCH (12:51)
[2021-10-27] MEDS ORDERED: hydrOXYzine PAMOATE 25 MG CAPSULE (FP) PO SCH (14:00)
[2021-10-27] MEDS ORDERED: ALBUTEROL SO4 HFA INHALER IH PRN (14:05)
[2021-10-27 14:35] LABS: HEMATOCRIT 39.6 % (35.4-49); HEMOGLOBIN 13.4 GM/dL (11.7-16.9); MCH 32.8 pg (25.7-33.7); MEAN CELL VOLUME 96.6 fl (80-96); MEAN PLT VOLUME 7.9 fl (7.5-11.1); PLATELET COUNT 324 10^3/uL (134-434); RBC 4.09 M/mm3 (4.00-5.60); RDW 13.8 % (11.9-15.9); WHITE BLOOD COUNT 3.3 K/mm3 (4.0-10.0)
[2021-10-27 14:46] LABS: ALBUMIN 3.8 g/dl (3.4-5.0); CALCIUM 9.1 mg/dL (8.5-10.1)
[2021-10-27] MEDS ORDERED: PT OWN MED DRAWER 7, Y5N ONE (14:46)
[2021-10-27 14:49] LABS: CREATININE 1.2 mg/dL (0.55-1.3)
[2021-10-27 14:51] LABS: BILIRUBIN,TOTAL 0.4 mg/dL (0.2-1); TOT PROT 7.9 g/dl (6.4-8.2)
[2021-10-27] MEDS: LIDOCAINE 5% TOPICAL PATCH TP SCH (14:52)
[2021-10-27] MEDS: BICTEGRAV/EMTRICIT/TENOFOV (BIKTARVY) 50-200-25 MG TABLET PO SCH (14:52)
[2021-10-27] MEDS ORDERED: hydrOXYzine PAMOATE 50 MG CAPSULE (FP) PO PRN (15:01)
[2021-10-27 15:49] LABS: SYPHILIS W/ RPR CONF REACTIVE (NONREACTIVE)
[2021-10-27] MEDS ORDERED: SUVOREXANT 20 MG TABLET PO PRN (22:00)
[2021-10-27] MEDS ORDERED: LIDOCAINE PATCH REMOVAL MC SCH (22:00)
[2021-10-27] MEDS ORDERED: MELATONIN 5 MG TABLETS PO SCH (22:00)
[2021-10-27] MEDS ORDERED: THIAMINE HCL 100 MG TABLET (FP) PO SCH (22:00)
[2021-10-28 06:47] VITALS: BP 109/75; PULSE 63; TEMP 97.1
[2021-10-28] MEDS ORDERED: methaDONE HCL 10 MG TABLET PO SCH (08:00)
[2021-10-28] MEDS ORDERED: methaDONE HCL 40 MG DISPERSABLE TABLET ONE (08:16)
[2021-10-28] MEDS ORDERED: methaDONE HCL 10 MG TABLET ONE (08:16)
[2021-10-28] MEDS: BICTEGRAV/EMTRICIT/TENOFOV (BIKTARVY) 50-200-25 MG TABLET PO SCH (08:36)
[2021-10-28] MEDS ORDERED: PT OWN MED DRAWER 7, Y5N ONE (08:52)
[2021-10-28] MEDS: PRENATAL VITAMINS W/ FOLIC ACID TABLET (FP) PO SCH (09:51)
[2021-10-28] MEDS: NICOTINE 10 MG CARTRIDGE (INHALER) IH PRN ×2 (09:51→14:03)
[2021-10-28] MEDS: NICOTINE 7 MG/24 HOURS TOPICAL PATCH TD SCH (09:51)
[2021-10-28] MEDS: LIDOCAINE 5% TOPICAL PATCH TP SCH (09:51)
[2021-10-28] MEDS ORDERED: ARIPiprazole 2 MG TABLET PO SCH (10:00)
== END 2021-10-28 15:04 | disposition home or self-care (01) | DRG 772 ==
LOC: YASAS 08:28 → Y3W 10:26 → Y3E 10:40
PROVIDERS: ADMIT Allergy & Immunology; ATTEND Allergy & Immunology
PROC: HZ42ZZZ Group Counseling for Substance Abuse Treatment, Cognitive-Behavioral (ICD-10-PCS; principal; 2021-10-27)
DX: F10.20 Alcohol dependence, uncomplicated (principal); F11.20 Opioid dependence, uncomplicated; F13.20 Sedative, hypnotic or anxiolytic dependence, uncomplicated; F14.10 Cocaine abuse, uncomplicated; F17.210 Nicotine dependence, cigarettes, uncomplicated; F90.9 Attention-deficit hyperactivity disorder, unspecified type; F41.9 Anxiety disorder, unspecified; F19.24 Other psychoactive substance dependence with psychoactive substance-induced mood disorder; F19.282 Other psychoactive substance dependence with psychoactive substance-induced sleep disorder; F19.280 Other psychoactive substance dependence with psychoactive substance-induced anxiety disorder; B20 Human immunodeficiency virus [HIV] disease; R64 Cachexia; G47.00 Insomnia, unspecified; D72.819 Decreased white blood cell count, unspecified; Z88.1 Allergy status to other antibiotic agents; Z86.19 Personal history of other infectious and parasitic diseases; Z91.14 Patient's other noncompliance with medication regimen; Z91.19 Patient's noncompliance with other medical treatment and regimen; Z56.0 Unemployment, unspecified; Z68.24 Body mass index [BMI] 24.0-24.9, adult
CPT/HCPCS: 36415; 80053; 85027; 86593; 86780; 86803; 87811

== ENCOUNTER 2021-10-31 08:16 | Inpatient (IN) | payer OTHER ==
[2021-10-31 09:00] VITALS: BMI 25.7
[2021-10-31] MEDS ORDERED: MAG HYDROX/AL HYDROX/SIMETH 30 ML UNIT-DOSE CUP PO PRN (09:26)
[2021-10-31] MEDS ORDERED: IBUPROFEN 400 MG TABLET (FP) PO PRN (09:26)
[2021-10-31] MEDS ORDERED: guaiFENesin 200 MG/10 ML 10 ML UNIT-DOSE CUPS PO PRN (09:26)
[2021-10-31] MEDS ORDERED: MAGNESIUM HYDROX 2400MG/30ML ORAL SUSPENSION 30 ML CUP PO PRN (09:26)
[2021-10-31] MEDS ORDERED: P-EPHED 60MG/TRIPROLIDI 2.5MG TABLET PO PRN (09:26)
[2021-10-31] MEDS ORDERED: ACETAMINOPHEN 325 MG TABLET (FP) PO PRN (09:26)
[2021-10-31] MEDS ORDERED: MAGNESIUM CITRATE 300 ML BOTTLE PO PRN (09:26)
[2021-10-31] MEDS ORDERED: LOPERAMIDE HCL 2 MG CAPSULE PO PRN (09:26)
[2021-10-31] MEDS ORDERED: ALBUTEROL SO4 HFA INHALER IH PRN (09:27)
[2021-10-31] MEDS ORDERED: hydrOXYzine PAMOATE 25 MG CAPSULE (FP) PO SCH (10:00)
[2021-10-31] MEDS: NICOTINE 7 MG/24 HOURS TOPICAL PATCH TD SCH (11:03)
[2021-10-31] MEDS: PRENATAL VITAMINS W/ FOLIC ACID TABLET (FP) PO SCH (11:04)
[2021-10-31] MEDS: BICTEGRAV/EMTRICIT/TENOFOV (BIKTARVY) 50-200-25 MG TABLET PO SCH (11:04)
[2021-10-31] MEDS: NICOTINE 10 MG CARTRIDGE (INHALER) IH PRN ×2 (14:56→20:49)
[2021-10-31] MEDS: busPIRone HCL 10 MG TABLET (FP) PO SCH ×2 (15:17→21:20)
[2021-10-31] MEDS: hydrOXYzine PAMOATE 50 MG CAPSULE (FP) PO SCH ×3 (15:17→23:18)
[2021-10-31] MEDS: THIAMINE HCL 100 MG TABLET (FP) PO SCH (21:20)
[2021-10-31] MEDS: SUVOREXANT 20 MG TABLET PO PRN (21:22)
[2021-10-31] MEDS ORDERED: MELATONIN 5 MG TABLETS PO SCH (22:00)
[2021-11-01] MEDS: hydrOXYzine PAMOATE 50 MG CAPSULE (FP) PO SCH ×3 (06:04→18:27)
[2021-11-01] MEDS: busPIRone HCL 10 MG TABLET (FP) PO SCH ×3 (06:04→21:18)
[2021-11-01] MEDS ORDERED: methaDONE HCL 40 MG DISPERSABLE TABLET ONE (09:34)
[2021-11-01] MEDS ORDERED: methaDONE HCL 10 MG TABLET ONE (09:35)
[2021-11-01] MEDS ORDERED: methaDONE HCL 40 MG DISPERSABLE TABLET PO SCH (10:00)
[2021-11-01] MEDS: PRENATAL VITAMINS W/ FOLIC ACID TABLET (FP) PO SCH (10:06)
[2021-11-01] MEDS: NICOTINE 7 MG/24 HOURS TOPICAL PATCH TD SCH (10:06)
[2021-11-01] MEDS: BICTEGRAV/EMTRICIT/TENOFOV (BIKTARVY) 50-200-25 MG TABLET PO SCH (10:07)
[2021-11-01] MEDS: NICOTINE 10 MG CARTRIDGE (INHALER) IH PRN ×4 (10:08→22:31)
[2021-11-01] MEDS: BACITRACIN 0.9 GM PACKET TP SCH ×2 (14:40→21:18)
[2021-11-01] MEDS: THIAMINE HCL 100 MG TABLET (FP) PO SCH (21:17)
[2021-11-01] MEDS: SUVOREXANT 20 MG TABLET PO PRN (21:18)
[2021-11-02] MEDS: hydrOXYzine PAMOATE 50 MG CAPSULE (FP) PO SCH ×5 (00:03→23:43)
[2021-11-02] MEDS ORDERED: methaDONE HCL 40 MG DISPERSABLE TABLET ONE (03:04)
[2021-11-02] MEDS ORDERED: methaDONE HCL 10 MG TABLET ONE (03:04)
[2021-11-02] MEDS: busPIRone HCL 10 MG TABLET (FP) PO SCH ×3 (06:21→21:04)
[2021-11-02] MEDS: PRENATAL VITAMINS W/ FOLIC ACID TABLET (FP) PO SCH (09:01)
[2021-11-02] MEDS: BICTEGRAV/EMTRICIT/TENOFOV (BIKTARVY) 50-200-25 MG TABLET PO SCH (09:01)
[2021-11-02] MEDS: NICOTINE 10 MG CARTRIDGE (INHALER) IH PRN ×3 (09:02→18:17)
[2021-11-02] MEDS: BACITRACIN 0.9 GM PACKET TP SCH ×2 (09:03→21:04)
[2021-11-02] MEDS: NICOTINE 7 MG/24 HOURS TOPICAL PATCH TD SCH (09:04)
[2021-11-02] MEDS: LIDOCAINE 5% TOPICAL PATCH TP SCH (12:14)
[2021-11-02] MEDS: THIAMINE HCL 100 MG TABLET (FP) PO SCH (21:04)
[2021-11-02] MEDS: LIDOCAINE PATCH REMOVAL MC SCH (21:05)
[2021-11-02] MEDS: SUVOREXANT 20 MG TABLET PO PRN (21:05)
[2021-11-03] MEDS ORDERED: methaDONE HCL 10 MG TABLET ONE (03:15)
[2021-11-03] MEDS ORDERED: methaDONE HCL 40 MG DISPERSABLE TABLET ONE (03:15)
[2021-11-03] MEDS: hydrOXYzine PAMOATE 50 MG CAPSULE (FP) PO SCH ×4 (06:39→23:50)
[2021-11-03] MEDS: busPIRone HCL 10 MG TABLET (FP) PO SCH ×3 (06:39→21:06)
[2021-11-03] MEDS: NICOTINE 10 MG CARTRIDGE (INHALER) IH PRN ×5 (06:41→21:07)
[2021-11-03] MEDS: NICOTINE 7 MG/24 HOURS TOPICAL PATCH TD SCH (09:52)
[2021-11-03] MEDS: PRENATAL VITAMINS W/ FOLIC ACID TABLET (FP) PO SCH (09:52)
[2021-11-03] MEDS: LIDOCAINE 5% TOPICAL PATCH TP SCH (09:52)
[2021-11-03] MEDS: BICTEGRAV/EMTRICIT/TENOFOV (BIKTARVY) 50-200-25 MG TABLET PO SCH (09:52)
[2021-11-03] MEDS: BACITRACIN 0.9 GM PACKET TP SCH ×2 (09:52→21:06)
[2021-11-03] MEDS: METHOCARBAMOL 500 MG TABLET PO SCH ×4 (11:00→21:06)
[2021-11-03] MEDS: THIAMINE HCL 100 MG TABLET (FP) PO SCH (21:06)
[2021-11-03] MEDS: LIDOCAINE PATCH REMOVAL MC SCH (21:07)
[2021-11-03] MEDS ORDERED: SUVOREXANT 10 MG TABLET PO PRN (22:00)
[2021-11-04] MEDS ORDERED: methaDONE HCL 10 MG TABLET ONE (03:19)
[2021-11-04] MEDS ORDERED: methaDONE HCL 40 MG DISPERSABLE TABLET ONE (03:19)
[2021-11-04] MEDS: hydrOXYzine PAMOATE 50 MG CAPSULE (FP) PO SCH (06:39)
[2021-11-04] MEDS: busPIRone HCL 10 MG TABLET (FP) PO SCH (06:40)
[2021-11-04] MEDS: NICOTINE 10 MG CARTRIDGE (INHALER) IH PRN (06:41)
[2021-11-04 07:11] VITALS: BP 104/62; PULSE 67; TEMP 98.1
[2021-11-04] MEDS: BACITRACIN 0.9 GM PACKET TP SCH (09:10)
[2021-11-04] MEDS: PRENATAL VITAMINS W/ FOLIC ACID TABLET (FP) PO SCH (09:11)
[2021-11-04] MEDS: LIDOCAINE 5% TOPICAL PATCH TP SCH (09:11)
[2021-11-04] MEDS: NICOTINE 7 MG/24 HOURS TOPICAL PATCH TD SCH (09:11)
[2021-11-04] MEDS: BICTEGRAV/EMTRICIT/TENOFOV (BIKTARVY) 50-200-25 MG TABLET PO SCH (09:11)
[2021-11-04] MEDS: METHOCARBAMOL 500 MG TABLET PO SCH (09:11)
[2021-11-04] MEDS ORDERED: ARIPiprazole 2 MG TABLET PO SCH (10:00)
== END 2021-11-04 11:08 | disposition left against medical advice (07) | DRG 770 ==
LOC: YASAS 08:16 → Y3W 10:22
PROVIDERS: ADMIT Allergy & Immunology; ATTEND Allergy & Immunology
PROC: HZ42ZZZ Group Counseling for Substance Abuse Treatment, Cognitive-Behavioral (ICD-10-PCS; principal; 2021-10-31)
DX: F11.20 Opioid dependence, uncomplicated (principal); F14.10 Cocaine abuse, uncomplicated; F17.210 Nicotine dependence, cigarettes, uncomplicated; F19.282 Other psychoactive substance dependence with psychoactive substance-induced sleep disorder; F19.280 Other psychoactive substance dependence with psychoactive substance-induced anxiety disorder; F41.9 Anxiety disorder, unspecified; F90.9 Attention-deficit hyperactivity disorder, unspecified type; F31.9 Bipolar disorder, unspecified; Z21 Asymptomatic human immunodeficiency virus [HIV] infection status; J45.909 Unspecified asthma, uncomplicated; M54.59 Other low back pain; G89.29 Other chronic pain; Z86.69 Personal history of other diseases of the nervous system and sense organs; Z86.19 Personal history of other infectious and parasitic diseases; Z56.0 Unemployment, unspecified
CPT/HCPCS: 87811; C9803; U0003; U0005

== ENCOUNTER 2021-12-02 14:02 | Inpatient (IN) | payer OTHER ==
[2021-12-02] MEDS ORDERED: LOPERAMIDE HCL 2 MG CAPSULE PO PRN (18:13)
[2021-12-02] MEDS ORDERED: MAGNESIUM HYDROX 2400MG/30ML ORAL SUSPENSION 30 ML CUP PO PRN (18:13)
[2021-12-02] MEDS ORDERED: ACETAMINOPHEN 325 MG TABLET (FP) PO PRN (18:13)
[2021-12-02] MEDS ORDERED: MAG HYDROX/AL HYDROX/SIMETH 30 ML UNIT-DOSE CUP PO PRN (18:13)
[2021-12-02] MEDS ORDERED: P-EPHED 60MG/TRIPROLIDI 2.5MG TABLET PO PRN (18:13)
[2021-12-02] MEDS ORDERED: MAGNESIUM CITRATE 300 ML BOTTLE PO PRN (18:13)
[2021-12-02] MEDS ORDERED: IBUPROFEN 400 MG TABLET (FP) PO PRN (18:13)
[2021-12-02] MEDS ORDERED: guaiFENesin 200 MG/10 ML 10 ML UNIT-DOSE CUPS PO PRN (18:13)
[2021-12-02] MEDS ORDERED: ALBUTEROL SO4 HFA INHALER IH PRN (18:16)
[2021-12-02 18:43] VITALS: BMI 24.7
[2021-12-02] MEDS: MELATONIN 5 MG TABLETS PO SCH (23:41)
[2021-12-02] MEDS: THIAMINE HCL 100 MG TABLET (FP) PO SCH (23:41)
[2021-12-02] MEDS: hydrOXYzine PAMOATE 25 MG CAPSULE (FP) PO SCH (23:42)
[2021-12-03] MEDS: NICOTINE 10 MG CARTRIDGE (INHALER) IH PRN ×2 (05:58→17:24)
[2021-12-03] MEDS: hydrOXYzine PAMOATE 25 MG CAPSULE (FP) PO SCH ×5 (05:58→21:04)
[2021-12-03] MEDS: BICTEGRAV/EMTRICIT/TENOFOV (BIKTARVY) 50-200-25 MG TABLET PO SCH (07:34)
[2021-12-03 09:36] LABS: URINE APPEARANCE CLEAR; URINE BILIRUBIN NEGATIVE (NEGATIVE); URINE COLOR YELLOW; URINE GLUCOSE (UA) NEGATIVE (NEGATIVE); URINE KETONE NEGATIVE (NEGATIVE); URINE LEUK ESTERASE NEGATIVE (NEGATIVE); URINE NITRITE NEGATIVE (NEGATIVE); URINE PROTEIN NEGATIVE (NEGATIVE); URINE UROBILINOGEN 0.2 mg/dL (0.2-1.0)
[2021-12-03] MEDS ORDERED: methaDONE HCL 40 MG DISPERSABLE TABLET PO SCH (09:45)
[2021-12-03] MEDS: NICOTINE 7 MG/24 HOURS TOPICAL PATCH TD SCH (09:55)
[2021-12-03] MEDS: PRENATAL VITAMINS W/ FOLIC ACID TABLET (FP) PO SCH (09:55)
[2021-12-03] MEDS ORDERED: BICTEGRAV/EMTRICIT/TENOFOV (BIKTARVY) 50-200-25 MG TABLET PO SCH (10:00)
[2021-12-03 10:02] LABS: HEMATOCRIT 36.2 % (35.4-49); HEMOGLOBIN 12.4 GM/dL (11.7-16.9); MCH 32.7 pg (25.7-33.7); MCHC 34.3 g/dl (32.0-35.9); MEAN CELL VOLUME 95.1 fl (80-96); MEAN PLT VOLUME 7.9 fl (7.5-11.1); PLATELET COUNT 261 10^3/uL (134-434); RDW 13.2 % (11.9-15.9); WHITE BLOOD COUNT 3.3 K/mm3 (4.0-10.0)
[2021-12-03 10:09] LABS: ALBUMIN 3.5 g/dl (3.4-5.0)
[2021-12-03 10:14] LABS: BILIRUBIN,TOTAL 0.3 mg/dL (0.2-1)
[2021-12-03] MEDS ORDERED: methaDONE HCL 10 MG TABLET ONE (10:48)
[2021-12-03] MEDS ORDERED: methaDONE HCL 40 MG DISPERSABLE TABLET ONE (10:48)
[2021-12-03] MEDS: MELATONIN 5 MG TABLETS PO SCH (21:03)
[2021-12-03] MEDS: THIAMINE HCL 100 MG TABLET (FP) PO SCH (21:04)
[2021-12-04] MEDS ORDERED: methaDONE HCL 10 MG TABLET ONE (02:44)
[2021-12-04] MEDS ORDERED: methaDONE HCL 40 MG DISPERSABLE TABLET ONE (02:44)
[2021-12-04] MEDS: hydrOXYzine PAMOATE 25 MG CAPSULE (FP) PO SCH ×5 (05:57→21:18)
[2021-12-04] MEDS: BICTEGRAV/EMTRICIT/TENOFOV (BIKTARVY) 50-200-25 MG TABLET PO SCH (07:15)
[2021-12-04] MEDS: NICOTINE 10 MG CARTRIDGE (INHALER) IH PRN ×2 (07:55→11:42)
[2021-12-04] MEDS: PRENATAL VITAMINS W/ FOLIC ACID TABLET (FP) PO SCH (09:52)
[2021-12-04] MEDS: NICOTINE 7 MG/24 HOURS TOPICAL PATCH TD SCH (09:52)
[2021-12-04] MEDS: THIAMINE HCL 100 MG TABLET (FP) PO SCH (21:18)
[2021-12-04] MEDS: MELATONIN 5 MG TABLETS PO SCH (21:18)
[2021-12-05] MEDS ORDERED: methaDONE HCL 40 MG DISPERSABLE TABLET ONE (06:03)
[2021-12-05] MEDS ORDERED: methaDONE HCL 10 MG TABLET ONE (06:04)
[2021-12-05] MEDS: hydrOXYzine PAMOATE 25 MG CAPSULE (FP) PO SCH ×3 (06:14→13:10)
[2021-12-05] MEDS: BICTEGRAV/EMTRICIT/TENOFOV (BIKTARVY) 50-200-25 MG TABLET PO SCH (07:02)
[2021-12-05] MEDS: PRENATAL VITAMINS W/ FOLIC ACID TABLET (FP) PO SCH (10:02)
[2021-12-05] MEDS: NICOTINE 10 MG CARTRIDGE (INHALER) IH PRN (10:02)
[2021-12-05] MEDS: NICOTINE 7 MG/24 HOURS TOPICAL PATCH TD SCH (10:02)
[2021-12-05 10:27] VITALS: BP 117/68; PULSE 69; TEMP 98.4
== END 2021-12-05 14:51 | disposition left against medical advice (07) | DRG 770 ==
LOC: YASAS 14:02 → Y3W 22:38
PROVIDERS: ADMIT Allergy & Immunology; ATTEND Allergy & Immunology
PROC: HZ42ZZZ Group Counseling for Substance Abuse Treatment, Cognitive-Behavioral (ICD-10-PCS; principal; 2021-12-02)
DX: F14.20 Cocaine dependence, uncomplicated (principal); F11.20 Opioid dependence, uncomplicated; F13.20 Sedative, hypnotic or anxiolytic dependence, uncomplicated; F17.210 Nicotine dependence, cigarettes, uncomplicated; F31.9 Bipolar disorder, unspecified; F41.9 Anxiety disorder, unspecified; Z21 Asymptomatic human immunodeficiency virus [HIV] infection status; M54.50 Low back pain, unspecified; G89.29 Other chronic pain; Z86.19 Personal history of other infectious and parasitic diseases; Z88.8 Allergy status to other drugs, medicaments and biological substances
CPT/HCPCS: 36415; 80053; 81003; 85027; 86593; 86780; 87811; C9803; U0003; U0005

== ENCOUNTER 2021-12-22 22:31 | Inpatient (IN) | payer OTHER ==
[2021-12-22 23:45] VITALS: BMI 24.3
[2021-12-22] MEDS ORDERED: MENTHOL/PHENOL 1 EACH UD MM PRN (23:58)
[2021-12-22] MEDS ORDERED: LOPERAMIDE HCL 2 MG CAPSULE PO PRN (23:58)
[2021-12-22] MEDS ORDERED: guaiFENesin 200 MG/10 ML 10 ML UNIT-DOSE CUPS PO PRN (23:58)
[2021-12-22] MEDS ORDERED: MAGNESIUM HYDROX 2400MG/30ML ORAL SUSPENSION 30 ML CUP PO PRN (23:58)
[2021-12-22] MEDS ORDERED: MELATONIN 5 MG TABLETS PO PRN (23:58)
[2021-12-22] MEDS ORDERED: ACETAMINOPHEN 325 MG TABLET (FP) PO PRN (23:58)
[2021-12-22] MEDS ORDERED: P-EPHED 60MG/TRIPROLIDI 2.5MG TABLET PO PRN (23:58)
[2021-12-22] MEDS ORDERED: MAGNESIUM CITRATE 300 ML BOTTLE PO PRN (23:58)
[2021-12-23] MEDS ORDERED: ALBUTEROL SO4 HFA INHALER IH PRN
[2021-12-23] MEDS: IBUPROFEN 400 MG TABLET (FP) PO PRN ×2 (03:53→13:49)
[2021-12-23] MEDS ORDERED: methaDONE HCL 40 MG DISPERSABLE TABLET PO SCH (07:15)
[2021-12-23] MEDS ORDERED: methaDONE HCL 10 MG TABLET ONE (10:09)
[2021-12-23] MEDS ORDERED: methaDONE HCL 40 MG DISPERSABLE TABLET ONE (10:10)
[2021-12-23] MEDS: NICOTINE 7 MG/24 HOURS TOPICAL PATCH TD SCH ×2 (10:11→13:50)
[2021-12-23] MEDS: BICTEGRAV/EMTRICIT/TENOFOV (BIKTARVY) 50-200-25 MG TABLET PO SCH (10:11)
[2021-12-23] MEDS: PRENATAL VITAMINS W/ FOLIC ACID TABLET (FP) PO SCH (10:12)
[2021-12-23] MEDS: busPIRone HCL 10 MG TABLET (FP) PO SCH ×2 (13:48→21:11)
[2021-12-23] MEDS: THIAMINE HCL 100 MG TABLET (FP) PO SCH (21:11)
[2021-12-23] MEDS: SUVOREXANT 10 MG TABLET PO PRN (21:13)
[2021-12-24] MEDS ORDERED: methaDONE HCL 10 MG TABLET ONE (03:27)
[2021-12-24] MEDS ORDERED: methaDONE HCL 40 MG DISPERSABLE TABLET ONE (03:28)
[2021-12-24] MEDS: busPIRone HCL 10 MG TABLET (FP) PO SCH ×3 (05:55→21:06)
[2021-12-24] MEDS: NICOTINE 7 MG/24 HOURS TOPICAL PATCH TD SCH (09:21)
[2021-12-24] MEDS: BICTEGRAV/EMTRICIT/TENOFOV (BIKTARVY) 50-200-25 MG TABLET PO SCH (09:21)
[2021-12-24] MEDS: PRENATAL VITAMINS W/ FOLIC ACID TABLET (FP) PO SCH (09:21)
[2021-12-24] MEDS: MAG HYDROX/AL HYDROX/SIMETH 30 ML UNIT-DOSE CUP PO PRN (09:23)
[2021-12-24] MEDS: NICOTINE 10 MG CARTRIDGE (INHALER) IH PRN (10:48)
[2021-12-24] MEDS: LIDOCAINE 5% TOPICAL PATCH TP SCH (10:49)
[2021-12-24] MEDS ORDERED: diphenhydrAMINE HCL 25 MG CAPSULE (FP) PO PRN (12:54)
[2021-12-24] MEDS: SUVOREXANT 10 MG TABLET PO PRN (21:05)
[2021-12-24] MEDS: THIAMINE HCL 100 MG TABLET (FP) PO SCH (21:05)
[2021-12-24] MEDS: LIDOCAINE PATCH REMOVAL MC SCH (21:06)
[2021-12-25] MEDS ORDERED: methaDONE HCL 40 MG DISPERSABLE TABLET ONE (05:43)
[2021-12-25] MEDS ORDERED: methaDONE HCL 10 MG TABLET ONE (05:43)
[2021-12-25] MEDS: busPIRone HCL 10 MG TABLET (FP) PO SCH ×3 (06:32→21:02)
[2021-12-25] MEDS: NICOTINE 7 MG/24 HOURS TOPICAL PATCH TD SCH (09:39)
[2021-12-25] MEDS: BICTEGRAV/EMTRICIT/TENOFOV (BIKTARVY) 50-200-25 MG TABLET PO SCH (09:39)
[2021-12-25] MEDS: LIDOCAINE 5% TOPICAL PATCH TP SCH (09:39)
[2021-12-25] MEDS: PRENATAL VITAMINS W/ FOLIC ACID TABLET (FP) PO SCH (09:39)
[2021-12-25] MEDS: NICOTINE 10 MG CARTRIDGE (INHALER) IH PRN ×4 (09:40→21:03)
[2021-12-25] MEDS: MAG HYDROX/AL HYDROX/SIMETH 30 ML UNIT-DOSE CUP PO PRN (11:45)
[2021-12-25] MEDS: THIAMINE HCL 100 MG TABLET (FP) PO SCH (21:02)
[2021-12-25] MEDS: LIDOCAINE PATCH REMOVAL MC SCH (21:03)
[2021-12-25] MEDS: SUVOREXANT 10 MG TABLET PO PRN (21:03)
[2021-12-26] MEDS ORDERED: methaDONE HCL 10 MG TABLET ONE (05:12)
[2021-12-26] MEDS ORDERED: methaDONE HCL 40 MG DISPERSABLE TABLET ONE (05:13)
[2021-12-26] MEDS: busPIRone HCL 10 MG TABLET (FP) PO SCH ×3 (06:15→21:16)
[2021-12-26] MEDS: NICOTINE 10 MG CARTRIDGE (INHALER) IH PRN ×3 (06:55→21:18)
[2021-12-26] MEDS: PRENATAL VITAMINS W/ FOLIC ACID TABLET (FP) PO SCH (09:59)
[2021-12-26] MEDS: NICOTINE 7 MG/24 HOURS TOPICAL PATCH TD SCH (10:00)
[2021-12-26] MEDS: LIDOCAINE 5% TOPICAL PATCH TP SCH (10:00)
[2021-12-26] MEDS: BICTEGRAV/EMTRICIT/TENOFOV (BIKTARVY) 50-200-25 MG TABLET PO SCH (10:02)
[2021-12-26] MEDS: METHOCARBAMOL 500 MG TABLET PO SCH ×3 (15:41→21:16)
[2021-12-26] MEDS: SUVOREXANT 15 MG TABLET PO PRN (21:17)
[2021-12-26] MEDS: THIAMINE HCL 100 MG TABLET (FP) PO SCH (21:17)
[2021-12-26] MEDS: LIDOCAINE PATCH REMOVAL MC SCH (21:50)
[2021-12-27] MEDS ORDERED: methaDONE HCL 40 MG DISPERSABLE TABLET ONE (05:16)
[2021-12-27] MEDS ORDERED: methaDONE HCL 10 MG TABLET ONE (05:16)
[2021-12-27] MEDS: busPIRone HCL 10 MG TABLET (FP) PO SCH ×3 (06:40→21:22)
[2021-12-27] MEDS: PRENATAL VITAMINS W/ FOLIC ACID TABLET (FP) PO SCH (10:06)
[2021-12-27] MEDS: LIDOCAINE 5% TOPICAL PATCH TP SCH (10:06)
[2021-12-27] MEDS: BICTEGRAV/EMTRICIT/TENOFOV (BIKTARVY) 50-200-25 MG TABLET PO SCH (10:07)
[2021-12-27] MEDS: METHOCARBAMOL 500 MG TABLET PO SCH ×4 (10:07→21:22)
[2021-12-27] MEDS: NICOTINE 7 MG/24 HOURS TOPICAL PATCH TD SCH (10:07)
[2021-12-27] MEDS: NICOTINE 10 MG CARTRIDGE (INHALER) IH PRN ×4 (13:36→23:39)
[2021-12-27] MEDS: SUVOREXANT 15 MG TABLET PO PRN (21:22)
[2021-12-27] MEDS: THIAMINE HCL 100 MG TABLET (FP) PO SCH (21:22)
[2021-12-27] MEDS: LIDOCAINE PATCH REMOVAL MC SCH (21:23)
[2021-12-28] MEDS ORDERED: methaDONE HCL 40 MG DISPERSABLE TABLET ONE (03:01)
[2021-12-28] MEDS ORDERED: methaDONE HCL 10 MG TABLET ONE (03:01)
[2021-12-28] MEDS: busPIRone HCL 10 MG TABLET (FP) PO SCH (06:25)
[2021-12-28 06:57] VITALS: BP 110/69; PULSE 58; TEMP 98.2
[2021-12-28] MEDS: NICOTINE 10 MG CARTRIDGE (INHALER) IH PRN ×2 (07:36→10:24)
[2021-12-28] MEDS: BICTEGRAV/EMTRICIT/TENOFOV (BIKTARVY) 50-200-25 MG TABLET PO SCH (09:27)
[2021-12-28] MEDS: METHOCARBAMOL 500 MG TABLET PO SCH (09:27)
[2021-12-28] MEDS: LIDOCAINE 5% TOPICAL PATCH TP SCH (09:28)
[2021-12-28] MEDS: NICOTINE 7 MG/24 HOURS TOPICAL PATCH TD SCH (09:28)
[2021-12-28] MEDS: PRENATAL VITAMINS W/ FOLIC ACID TABLET (FP) PO SCH (09:29)
[2021-12-28] MEDS: IBUPROFEN 400 MG TABLET (FP) PO PRN (09:29)
== END 2021-12-28 12:24 | disposition home or self-care (01) | DRG 772 ==
LOC: YASAS 22:31 → Y3W 12-23 01:47
PROVIDERS: ADMIT Allergy & Immunology; ATTEND Allergy & Immunology
PROC: HZ42ZZZ Group Counseling for Substance Abuse Treatment, Cognitive-Behavioral (ICD-10-PCS; principal; 2021-12-23)
DX: F14.20 Cocaine dependence, uncomplicated (principal); F11.20 Opioid dependence, uncomplicated; F17.210 Nicotine dependence, cigarettes, uncomplicated; F31.9 Bipolar disorder, unspecified; F19.282 Other psychoactive substance dependence with psychoactive substance-induced sleep disorder; F19.280 Other psychoactive substance dependence with psychoactive substance-induced anxiety disorder; F41.8 Other specified anxiety disorders; B20 Human immunodeficiency virus [HIV] disease; G40.909 Epilepsy, unspecified, not intractable, without status epilepticus; J45.909 Unspecified asthma, uncomplicated; M54.50 Low back pain, unspecified; G89.29 Other chronic pain; Z86.19 Personal history of other infectious and parasitic diseases; Z88.2 Allergy status to sulfonamides; Z56.0 Unemployment, unspecified
CPT/HCPCS: C9803; U0003; U0005

== ENCOUNTER 2022-02-23 22:32 | Inpatient (IN) | payer OTHER ==
[~2022-02-23 22:32] MED LIST: MELATONIN 5 MG TABLETS PO SCH
[2022-02-23] MEDS ORDERED: MAGNESIUM CITRATE 300 ML BOTTLE PO PRN (23:44)
[2022-02-23] MEDS ORDERED: LOPERAMIDE HCL 2 MG CAPSULE PO PRN (23:44)
[2022-02-23] MEDS ORDERED: IBUPROFEN 400 MG TABLET (FP) PO PRN (23:44)
[2022-02-23] MEDS ORDERED: MAG HYDROX/AL HYDROX/SIMETH 30 ML UNIT-DOSE CUP PO PRN (23:44)
[2022-02-23] MEDS ORDERED: P-EPHED 60MG/TRIPROLIDI 2.5MG TABLET PO PRN (23:44)
[2022-02-23] MEDS ORDERED: MAGNESIUM HYDROX 2400MG/30ML ORAL SUSPENSION 30 ML CUP PO PRN (23:44)
[2022-02-23] MEDS ORDERED: ACETAMINOPHEN 325 MG TABLET (FP) PO PRN (23:44)
[2022-02-23] MEDS ORDERED: guaiFENesin 200 MG/10 ML 10 ML UNIT-DOSE CUPS PO PRN (23:44)
[2022-02-23 23:53] VITALS: BMI 23.7
[2022-02-24] MEDS ORDERED: NICOTINE 14 MG/24 HOURS TOPICAL PATCH TD SCH (10:00)
[2022-02-24] MEDS ORDERED: methaDONE HCL 10 MG TABLET PO ONE (10:09)
[2022-02-24] MEDS ORDERED: methaDONE HCL 10 MG TABLET ONE (10:44)
[2022-02-24] MEDS ORDERED: methaDONE HCL 40 MG DISPERSABLE TABLET ONE (10:44)
[2022-02-24] MEDS: PRENATAL VITAMINS W/ FOLIC ACID TABLET (FP) PO SCH (10:46)
[2022-02-24] MEDS ORDERED: NICOTINE POLACRILEX 2 MG GUM BUC PRN (11:11)
[2022-02-24] MEDS: LIDOCAINE 5% TOPICAL PATCH TP SCH (11:45)
[2022-02-24 12:04] LABS: HEMATOCRIT 36.3 % (35.4-49); HEMOGLOBIN 12.4 GM/dL (11.7-16.9); MCH 32.5 pg (25.7-33.7); MCHC 34.2 g/dl (32.0-35.9); MEAN CELL VOLUME 95.2 fl (80-96); MEAN PLT VOLUME 8.2 fl (7.5-11.1); PLATELET COUNT 275 10^3/uL (134-434); RBC 3.81 M/mm3 (4.00-5.60); RDW 13.6 % (11.9-15.9); WHITE BLOOD COUNT 2.7 K/mm3 (4.0-10.0)
[2022-02-24 12:13] LABS: BLOOD UREA NITROGEN 23.8 mg/dL (7-18)
[2022-02-24 12:14] LABS: ALBUMIN 3.3 g/dl (3.4-5.0); CALCIUM 8.7 mg/dL (8.5-10.1)
[2022-02-24] MEDS ORDERED: ALBUTEROL SO4 HFA INHALER IH PRN ×2 (12:15→12:17)
[2022-02-24 12:17] LABS: BILIRUBIN,TOTAL 0.2 mg/dL (0.2-1); CREATININE 1.3 mg/dL (0.55-1.3); TOT PROT 6.9 g/dl (6.4-8.2)
[2022-02-24] MEDS: BICTEGRAV/EMTRICIT/TENOFOV (BIKTARVY) 50-200-25 MG TABLET PO SCH (14:38)
[2022-02-24] MEDS: busPIRone HCL 10 MG TABLET (FP) PO SCH ×2 (14:38→21:00)
[2022-02-24] MEDS: LORATADINE 10 MG TABLET PO SCH (14:39)
[2022-02-24] MEDS: NICOTINE 10 MG CARTRIDGE (INHALER) IH SCH (17:14)
[2022-02-24] MEDS: hydrOXYzine PAMOATE 25 MG CAPSULE (FP) PO PRN ×2 (18:43→21:00)
[2022-02-24] MEDS: LIDOCAINE PATCH REMOVAL MC SCH (21:01)
[2022-02-24] MEDS: THIAMINE HCL 100 MG TABLET (FP) PO SCH (21:01)
[2022-02-24] MEDS: SUVOREXANT 15 MG TABLET PO PRN (21:02)
[2022-02-25] MEDS ORDERED: methaDONE HCL 10 MG TABLET ONE (04:49)
[2022-02-25] MEDS ORDERED: methaDONE HCL 40 MG DISPERSABLE TABLET ONE (04:50)
[2022-02-25] MEDS ORDERED: methaDONE HCL 10 MG TABLET PO SCH (06:00)
[2022-02-25] MEDS: busPIRone HCL 10 MG TABLET (FP) PO SCH ×3 (07:03→21:02)
[2022-02-25] MEDS: BICTEGRAV/EMTRICIT/TENOFOV (BIKTARVY) 50-200-25 MG TABLET PO SCH (07:07)
[2022-02-25] MEDS: LORATADINE 10 MG TABLET PO SCH (09:52)
[2022-02-25] MEDS: LIDOCAINE 5% TOPICAL PATCH TP SCH (09:53)
[2022-02-25] MEDS: NICOTINE 10 MG CARTRIDGE (INHALER) IH SCH (09:54)
[2022-02-25] MEDS: PRENATAL VITAMINS W/ FOLIC ACID TABLET (FP) PO SCH (09:54)
[2022-02-25] MEDS: hydrOXYzine PAMOATE 25 MG CAPSULE (FP) PO PRN (13:56)
[2022-02-25 15:00] LABS: PH,URINE 5.5 (5.0-8.0); URINE APPEARANCE CLEAR; URINE BILIRUBIN NEGATIVE (NEGATIVE); URINE COLOR YELLOW; URINE GLUCOSE (UA) NEGATIVE (NEGATIVE); URINE KETONE NEGATIVE (NEGATIVE); URINE LEUK ESTERASE NEGATIVE (NEGATIVE); URINE NITRITE NEGATIVE (NEGATIVE); URINE PROTEIN NEGATIVE (NEGATIVE); URINE UROBILINOGEN 0.2 mg/dL (0.2-1.0)
[2022-02-25] MEDS: LIDOCAINE PATCH REMOVAL MC SCH (21:02)
[2022-02-25] MEDS: THIAMINE HCL 100 MG TABLET (FP) PO SCH (21:02)
[2022-02-25] MEDS: SUVOREXANT 15 MG TABLET PO PRN (21:05)
[2022-02-26] MEDS ORDERED: methaDONE HCL 10 MG TABLET ONE ×2 (02:54→08:38)
[2022-02-26] MEDS ORDERED: methaDONE HCL 40 MG DISPERSABLE TABLET ONE ×2 (02:54→08:38)
[2022-02-26] MEDS: busPIRone HCL 10 MG TABLET (FP) PO SCH ×3 (07:31→21:07)
[2022-02-26] MEDS: BICTEGRAV/EMTRICIT/TENOFOV (BIKTARVY) 50-200-25 MG TABLET PO SCH (07:34)
[2022-02-26] MEDS: NICOTINE 10 MG CARTRIDGE (INHALER) IH SCH (10:48)
[2022-02-26] MEDS: hydrOXYzine PAMOATE 25 MG CAPSULE (FP) PO PRN (10:48)
[2022-02-26] MEDS: LORATADINE 10 MG TABLET PO SCH (10:48)
[2022-02-26] MEDS: PRENATAL VITAMINS W/ FOLIC ACID TABLET (FP) PO SCH (10:48)
[2022-02-26] MEDS: LIDOCAINE 5% TOPICAL PATCH TP SCH (10:48)
[2022-02-26] MEDS: NICOTINE 10 MG CARTRIDGE (INHALER) IH PRN ×2 (17:24→21:08)
[2022-02-26] MEDS: THIAMINE HCL 100 MG TABLET (FP) PO SCH (21:07)
[2022-02-26] MEDS: LIDOCAINE PATCH REMOVAL MC SCH (21:07)
[2022-02-26] MEDS: SUVOREXANT 15 MG TABLET PO PRN (21:09)
[2022-02-27] MEDS ORDERED: methaDONE HCL 10 MG TABLET ONE (03:02)
[2022-02-27] MEDS ORDERED: methaDONE HCL 40 MG DISPERSABLE TABLET ONE (03:02)
[2022-02-27] MEDS: busPIRone HCL 10 MG TABLET (FP) PO SCH (06:40)
[2022-02-27] MEDS: NICOTINE 10 MG CARTRIDGE (INHALER) IH PRN (06:42)
[2022-02-27] MEDS: BICTEGRAV/EMTRICIT/TENOFOV (BIKTARVY) 50-200-25 MG TABLET PO SCH (07:06)
[2022-02-27 07:14] VITALS: BP 107/67; PULSE 68; TEMP 97.5
[2022-02-27] MEDS: PRENATAL VITAMINS W/ FOLIC ACID TABLET (FP) PO SCH (09:52)
[2022-02-27] MEDS: LORATADINE 10 MG TABLET PO SCH (09:53)
[2022-02-27] MEDS: LIDOCAINE 5% TOPICAL PATCH TP SCH (09:53)
[2022-02-27] MEDS: hydrOXYzine PAMOATE 25 MG CAPSULE (FP) PO PRN (09:55)
== END 2022-02-27 11:05 | disposition left against medical advice (07) | DRG 770 ==
LOC: YASAS 22:32 → Y5N 02-24 03:20
PROVIDERS: ADMIT Allergy & Immunology; ATTEND Allergy & Immunology
PROC: HZ42ZZZ Group Counseling for Substance Abuse Treatment, Cognitive-Behavioral (ICD-10-PCS; principal; 2022-02-24)
DX: F14.20 Cocaine dependence, uncomplicated (principal); F11.20 Opioid dependence, uncomplicated; F17.210 Nicotine dependence, cigarettes, uncomplicated; F19.280 Other psychoactive substance dependence with psychoactive substance-induced anxiety disorder; F19.282 Other psychoactive substance dependence with psychoactive substance-induced sleep disorder; F31.9 Bipolar disorder, unspecified; F41.9 Anxiety disorder, unspecified; F90.9 Attention-deficit hyperactivity disorder, unspecified type; B20 Human immunodeficiency virus [HIV] disease; B37.0 Candidal stomatitis; G40.909 Epilepsy, unspecified, not intractable, without status epilepticus; J45.909 Unspecified asthma, uncomplicated; K59.01 Slow transit constipation; M54.50 Low back pain, unspecified; G89.29 Other chronic pain; Z86.19 Personal history of other infectious and parasitic diseases
CPT/HCPCS: 36415; 80053; 81003; 85027; 86593; 86780; C9803-CS; U0003; U0005

== ENCOUNTER 2022-03-29 17:50 | Inpatient (IN) | payer OTHER ==
[2022-03-29 18:47] VITALS: BMI 21.6
[2022-03-29] MEDS ORDERED: MAG HYDROX/AL HYDROX/SIMETH 30 ML UNIT-DOSE CUP PO PRN (19:27)
[2022-03-29] MEDS ORDERED: MELATONIN 5 MG TABLETS PO PRN (19:27)
[2022-03-29] MEDS ORDERED: LOPERAMIDE HCL 2 MG CAPSULE PO PRN (19:27)
[2022-03-29] MEDS ORDERED: guaiFENesin 200 MG/10 ML 10 ML UNIT-DOSE CUPS PO PRN (19:27)
[2022-03-29] MEDS ORDERED: MAGNESIUM HYDROX 2400MG/30ML ORAL SUSPENSION 30 ML CUP PO PRN (19:27)
[2022-03-29] MEDS ORDERED: P-EPHED 60MG/TRIPROLIDI 2.5MG TABLET PO PRN (19:27)
[2022-03-29] MEDS ORDERED: MAGNESIUM CITRATE 300 ML BOTTLE PO PRN (19:27)
[2022-03-29] MEDS ORDERED: ACETAMINOPHEN 325 MG TABLET (FP) PO PRN (19:27)
[2022-03-30] MEDS: THIAMINE HCL 100 MG TABLET (FP) PO SCH ×2 (04:10→21:23)
[2022-03-30] MEDS ORDERED: methaDONE HCL 10 MG TABLET PO ONE (09:30)
[2022-03-30 10:01] LABS: HEMATOCRIT 36.8 % (35.4-49); HEMOGLOBIN 12.6 GM/dL (11.7-16.9); MCH 32.7 pg (25.7-33.7); MCHC 34.2 g/dl (32.0-35.9); MEAN CELL VOLUME 95.7 fl (80-96); MEAN PLT VOLUME 7.6 fl (7.5-11.1); PLATELET COUNT 299 10^3/uL (134-434); RBC 3.84 M/mm3 (4.00-5.60); RDW 13.3 % (11.9-15.9); WHITE BLOOD COUNT 3.1 K/mm3 (4.0-10.0)
[2022-03-30 10:09] LABS: ALBUMIN 3.4 g/dl (3.4-5.0); BLOOD UREA NITROGEN 22.5 mg/dL (7-18); CALCIUM 8.8 mg/dL (8.5-10.1)
[2022-03-30 10:14] LABS: TOT PROT 6.9 g/dl (6.4-8.2)
[2022-03-30 10:15] LABS: BILIRUBIN,TOTAL 0.2 mg/dL (0.2-1)
[2022-03-30] MEDS ORDERED: methaDONE HCL 10 MG TABLET ONE (10:37)
[2022-03-30] MEDS ORDERED: methaDONE HCL 40 MG DISPERSABLE TABLET ONE (10:37)
[2022-03-30] MEDS: PRENATAL VITAMINS W/ FOLIC ACID TABLET (FP) PO SCH (10:38)
[2022-03-30] MEDS: hydrOXYzine PAMOATE 25 MG CAPSULE (FP) PO PRN ×2 (10:39→21:22)
[2022-03-30] MEDS: NICOTINE 10 MG CARTRIDGE (INHALER) IH PRN ×2 (13:19→21:22)
[2022-03-30] MEDS: LIDOCAINE 5% TOPICAL PATCH TP SCH (17:05)
[2022-03-30] MEDS: IBUPROFEN 400 MG TABLET (FP) PO PRN (17:07)
[2022-03-30] MEDS: METHOCARBAMOL 500 MG TABLET PO SCH ×2 (17:07→21:22)
[2022-03-30] MEDS: LIDOCAINE PATCH REMOVAL MC SCH (21:23)
[2022-03-31] MEDS ORDERED: methaDONE HCL 10 MG TABLET PO SCH (06:00)
[2022-03-31] MEDS ORDERED: methaDONE HCL 40 MG DISPERSABLE TABLET ONE (06:17)
[2022-03-31] MEDS ORDERED: methaDONE HCL 10 MG TABLET ONE (06:17)
[2022-03-31] MEDS: PRENATAL VITAMINS W/ FOLIC ACID TABLET (FP) PO SCH (09:51)
[2022-03-31] MEDS: METHOCARBAMOL 500 MG TABLET PO SCH ×4 (09:51→21:07)
[2022-03-31] MEDS: LIDOCAINE 5% TOPICAL PATCH TP SCH (09:52)
[2022-03-31] MEDS: NICOTINE 10 MG CARTRIDGE (INHALER) IH PRN ×3 (10:37→21:07)
[2022-03-31] MEDS: hydrOXYzine PAMOATE 25 MG CAPSULE (FP) PO PRN ×2 (14:19→21:07)
[2022-03-31] MEDS: LIDOCAINE PATCH REMOVAL MC SCH (21:07)
[2022-03-31] MEDS: THIAMINE HCL 100 MG TABLET (FP) PO SCH (21:07)
[2022-04-01] MEDS ORDERED: methaDONE HCL 40 MG DISPERSABLE TABLET ONE (06:36)
[2022-04-01] MEDS ORDERED: methaDONE HCL 10 MG TABLET ONE (06:36)
[2022-04-01] MEDS: NICOTINE 10 MG CARTRIDGE (INHALER) IH PRN ×4 (06:37→21:48)
[2022-04-01] MEDS: METHOCARBAMOL 500 MG TABLET PO SCH ×4 (10:25→21:48)
[2022-04-01] MEDS: LIDOCAINE 5% TOPICAL PATCH TP SCH (10:25)
[2022-04-01] MEDS: PRENATAL VITAMINS W/ FOLIC ACID TABLET (FP) PO SCH (10:25)
[2022-04-01] MEDS: hydrOXYzine PAMOATE 25 MG CAPSULE (FP) PO PRN (13:54)
[2022-04-01] MEDS: LIDOCAINE PATCH REMOVAL MC SCH (21:48)
[2022-04-01] MEDS: THIAMINE HCL 100 MG TABLET (FP) PO SCH (21:48)
[2022-04-02] MEDS ORDERED: methaDONE HCL 10 MG TABLET ONE (03:28)
[2022-04-02] MEDS ORDERED: methaDONE HCL 40 MG DISPERSABLE TABLET ONE (03:29)
[2022-04-02 07:19] VITALS: BP 117/76; PULSE 74; TEMP 97.7
[2022-04-02] MEDS: NICOTINE 10 MG CARTRIDGE (INHALER) IH PRN (08:59)
[2022-04-02] MEDS: LIDOCAINE 5% TOPICAL PATCH TP SCH (09:43)
[2022-04-02] MEDS: METHOCARBAMOL 500 MG TABLET PO SCH (09:44)
[2022-04-02] MEDS: PRENATAL VITAMINS W/ FOLIC ACID TABLET (FP) PO SCH (09:44)
[2022-04-02] MEDS: IBUPROFEN 400 MG TABLET (FP) PO PRN (10:46)
[2022-04-02 14:07] LABS: SARS-CoV-2 NAA Not Detected (Not Detected)
== END 2022-04-02 12:06 | disposition home or self-care (01) | DRG 772 ==
LOC: YASAS 17:50 → Y3W 03-30 03:38
PROVIDERS: ADMIT Allergy & Immunology; ATTEND Allergy & Immunology
PROC: HZ42ZZZ Group Counseling for Substance Abuse Treatment, Cognitive-Behavioral (ICD-10-PCS; principal; 2022-03-30)
DX: F14.20 Cocaine dependence, uncomplicated (principal); F11.20 Opioid dependence, uncomplicated; F17.210 Nicotine dependence, cigarettes, uncomplicated; B20 Human immunodeficiency virus [HIV] disease; Z86.19 Personal history of other infectious and parasitic diseases; Z88.8 Allergy status to other drugs, medicaments and biological substances
CPT/HCPCS: 36415; 80053; 85027; 86593; 86780; 87811; C9803-CS; U0003; U0005

== ENCOUNTER 2022-05-18 19:07 | Inpatient (IN) | payer OTHER ==
[2022-05-18 19:58] VITALS: BMI 24.0
[2022-05-18] MEDS ORDERED: NALOXONE HCL 0.4 MG/ML VIAL IM PRN (20:27)
[2022-05-18] MEDS ORDERED: IBUPROFEN 600 MG TABLET (FP) PO PRN (20:27)
[2022-05-18] MEDS ORDERED: MAGNESIUM HYDROX 2400MG/30ML ORAL SUSPENSION 30 ML CUP PO PRN (20:27)
[2022-05-18] MEDS ORDERED: ONDANSETRON *ODT* 4 MG TABLET SL PRN (20:27)
[2022-05-18] MEDS ORDERED: MAG HYDROX/AL HYDROX/SIMETH 30 ML UNIT-DOSE CUP PO PRN (20:27)
[2022-05-18] MEDS ORDERED: BENZOCAINE/MENTHOL (CHLORASEPTIC ) LOZENGE MM PRN (20:27)
[2022-05-18] MEDS ORDERED: MAGNESIUM CITRATE 300 ML BOTTLE PO PRN (20:27)
[2022-05-18] MEDS ORDERED: LOPERAMIDE HCL 2 MG CAPSULE PO PRN (20:27)
[2022-05-18] MEDS ORDERED: guaiFENesin 200 MG/10 ML 10 ML UNIT-DOSE CUPS PO PRN (20:27)
[2022-05-18] MEDS ORDERED: BISMUTH SUBSALICYLATE 524 MG/30 ML PO PRN (20:27)
[2022-05-18] MEDS ORDERED: P-EPHED 60MG/TRIPROLIDI 2.5MG TABLET PO PRN (20:27)
[2022-05-18] MEDS ORDERED: IBUPROFEN 400 MG TABLET (FP) PO PRN (20:27)
[2022-05-18] MEDS ORDERED: ACETAMINOPHEN 325 MG TABLET (FP) PO PRN ×2 (20:27)
[2022-05-18] MEDS ORDERED: NICOTINE POLACRILEX 2 MG GUM BUC PRN (20:27)
[2022-05-18] MEDS ORDERED: NALOXONE HCL (KLOXXADO) 8 MG SPRAY NS PRN (20:27)
[2022-05-18] MEDS ORDERED: DICYCLOMINE HCL 10 MG CAPSULE PO PRN (20:27)
[2022-05-18] MEDS ORDERED: hydrOXYzine PAMOATE 25 MG CAPSULE (FP) PO PRN (20:27)
[2022-05-18] MEDS ORDERED: METHOCARBAMOL 500 MG TABLET PO PRN (20:27)
[2022-05-18] MEDS ORDERED: THIAMINE HCL 100 MG TABLET (FP) PO SCH (22:00)
[2022-05-18] MEDS ORDERED: MELATONIN 5 MG TABLETS PO SCH (22:00)
[2022-05-18] MEDS ORDERED: hydrOXYzine PAMOATE 25 MG CAPSULE (FP) PO ONE (22:05)
[2022-05-19] MEDS ORDERED: PRENATAL VITAMINS W/ FOLIC ACID TABLET (FP) PO SCH (10:00)
[2022-05-19] MEDS ORDERED: NICOTINE 14 MG/24 HOURS TOPICAL PATCH TD SCH (10:00)
[2022-05-19 10:22] LABS: HEMATOCRIT 36.1 % (35.4-49); HEMOGLOBIN 11.9 GM/dL (11.7-16.9); MCH 31.5 pg (25.7-33.7); MEAN CELL VOLUME 95.3 fl (80-96); MEAN PLT VOLUME 7.9 fl (7.5-11.1); PLATELET COUNT 248 10^3/uL (134-434); RBC 3.78 M/mm3 (4.00-5.60); RDW 13.2 % (11.9-15.9); WHITE BLOOD COUNT 2.8 K/mm3 (4.0-10.0)
[2022-05-19 10:28] LABS: ALBUMIN 3.5 g/dl (3.4-5.0); BLOOD UREA NITROGEN 26.3 mg/dL (7-18); CALCIUM 8.8 mg/dL (8.5-10.1)
[2022-05-19 10:33] LABS: BILIRUBIN,TOTAL 0.4 mg/dL (0.2-1); TOT PROT 7.2 g/dl (6.4-8.2)
[2022-05-19] MEDS ORDERED: ALBUTEROL SO4 HFA INHALER IH PRN (11:07)
[2022-05-19] MEDS ORDERED: methaDONE HCL 10 MG TABLET PO ONE (11:30)
[2022-05-19] MEDS ORDERED: NICOTINE 10 MG CARTRIDGE (INHALER) IH PRN (13:04)
[2022-05-19] MEDS ORDERED: NICOTINE 10 MG CARTRIDGE (INHALER) IH SCH (16:30)
[2022-05-19 17:38] VITALS: BP 115/65; PULSE 70; TEMP 97.3
[2022-05-20] MEDS ORDERED: methaDONE HCL 40 MG DISPERSABLE TABLET PO ONE (06:00)
[2022-05-20] MEDS ORDERED: BICTEGRAV/EMTRICIT/TENOFOV (BIKTARVY) 50-200-25 MG TABLET PO SCH (08:00)
[2022-05-21] MEDS ORDERED: methaDONE 40 MG, methaDONE 10 MG PO ONE (06:00)
[2022-05-21] MEDS ORDERED: methaDONE HCL 40 MG DISPERSABLE TABLET PO ONE (06:00)
[2022-05-22] MEDS ORDERED: methaDONE 40 MG, methaDONE 20 MG PO ONE (06:00)
[2022-05-22] MEDS ORDERED: methaDONE HCL 10 MG TABLET PO ONE (06:00)
[2022-05-23] MEDS ORDERED: methaDONE HCL 10 MG TABLET PO SCH (06:00)
== END 2022-05-19 19:25 | disposition home or self-care (01) | DRG 773 ==
LOC: YASAS 19:07 → Y3N 05-19 07:05
PROVIDERS: ADMIT Allergy & Immunology; ATTEND Allergy & Immunology
PROC: HZ2ZZZZ Detoxification Services for Substance Abuse Treatment (ICD-10-PCS; principal; 2022-05-19)
DX: F11.20 Opioid dependence, uncomplicated (principal); F14.20 Cocaine dependence, uncomplicated; F13.10 Sedative, hypnotic or anxiolytic abuse, uncomplicated; F17.210 Nicotine dependence, cigarettes, uncomplicated; F90.9 Attention-deficit hyperactivity disorder, unspecified type; Z21 Asymptomatic human immunodeficiency virus [HIV] infection status; J45.909 Unspecified asthma, uncomplicated; G47.00 Insomnia, unspecified; M54.59 Other low back pain; G89.29 Other chronic pain; Z86.69 Personal history of other diseases of the nervous system and sense organs; Z88.1 Allergy status to other antibiotic agents; Z86.19 Personal history of other infectious and parasitic diseases; Z91.19 Patient's noncompliance with other medical treatment and regimen
CPT/HCPCS: 36415; 80053; 85027; 86593; 86780; 87811; C9803-CS; U0003; U0005

== ENCOUNTER 2022-09-17 09:00 | Inpatient (IN) | payer OTHER ==
[2022-09-17 09:39] VITALS: BMI 22.6
[2022-09-17] MEDS ORDERED: MAG HYDROX/AL HYDROX/SIMETH 30 ML UNIT-DOSE CUP PO PRN (10:05)
[2022-09-17] MEDS ORDERED: MAGNESIUM HYDROX 2400MG/30ML ORAL SUSPENSION 30 ML CUP PO PRN (10:05)
[2022-09-17] MEDS ORDERED: MAGNESIUM CITRATE 300 ML BOTTLE PO PRN (10:05)
[2022-09-17] MEDS ORDERED: guaiFENesin 200 MG/10 ML 10 ML UNIT-DOSE CUPS PO PRN (10:05)
[2022-09-17] MEDS ORDERED: LOPERAMIDE HCL 2 MG CAPSULE PO PRN (10:05)
[2022-09-17] MEDS ORDERED: NICOTINE 10 MG CARTRIDGE (INHALER) IH PRN (10:05)
[2022-09-17] MEDS ORDERED: P-EPHED 60MG/TRIPROLIDI 2.5MG TABLET PO PRN (10:05)
[2022-09-17] MEDS ORDERED: LORazepam 2 MG TABLET PO ONE (11:45)
[2022-09-17] MEDS: IBUPROFEN 400 MG TABLET (FP) PO PRN (12:22)
[2022-09-17] MEDS: BACITRACIN 15 GM TUBE TOPICAL OINTMENT TP SCH (14:26)
[2022-09-17] MEDS ORDERED: TUBERCULIN PPD 5 TU/0.1ML VIAL ID ONE (14:54)
[2022-09-17 15:39] VITALS: RESP 18
[2022-09-17] MEDS ORDERED: ALBUTEROL SO4 HFA INHALER IH PRN (18:38)
[2022-09-17] MEDS: THIAMINE HCL 100 MG TABLET (FP) PO SCH (21:24)
[2022-09-17] MEDS: hydrOXYzine PAMOATE 25 MG CAPSULE (FP) PO PRN (21:24)
[2022-09-17] MEDS ORDERED: MELATONIN 5 MG TABLETS PO SCH (22:00)
[2022-09-18] MEDS: BICTEGRAV/EMTRICIT/TENOFOV (BIKTARVY) 50-200-25 MG TABLET PO SCH (10:29)
[2022-09-18] MEDS: PRENATAL VITAMINS W/ FOLIC ACID TABLET (FP) PO SCH (10:30)
[2022-09-18] MEDS: NICOTINE 7 MG/24 HOURS TOPICAL PATCH TD SCH (10:34)
[2022-09-18] MEDS: BACITRACIN 15 GM TUBE TOPICAL OINTMENT TP SCH (10:34)
[2022-09-18 14:59] LABS: HEMATOCRIT 37.8 % (35.4-49); HEMOGLOBIN 12.6 GM/dL (11.7-16.9); MCH 32.3 pg (25.7-33.7); MCHC 33.3 g/dl (32.0-35.9); MEAN CELL VOLUME 97.2 fl (80-96); MEAN PLT VOLUME 7.9 fl (7.5-11.1); PLATELET COUNT 282 10^3/uL (134-434); RBC 3.89 M/mm3 (4.00-5.60); RDW 14.3 % (11.9-15.9); WHITE BLOOD COUNT 3.3 K/mm3 (4.0-10.0)
[2022-09-18 15:14] LABS: CALCIUM 9.3 mg/dL (8.5-10.1)
[2022-09-18 15:15] LABS: ALBUMIN 3.5 g/dl (3.4-5.0); BLOOD UREA NITROGEN 21.7 mg/dL (7-18)
[2022-09-18 15:19] LABS: BILIRUBIN,TOTAL 0.2 mg/dL (0.2-1)
[2022-09-18] MEDS: ACETAMINOPHEN 325 MG TABLET (FP) PO PRN (21:38)
[2022-09-18] MEDS: THIAMINE HCL 100 MG TABLET (FP) PO SCH (21:41)
[2022-09-18] MEDS: busPIRone HCL 5 MG TABLET PO SCH (21:41)
[2022-09-18] MEDS: hydrOXYzine PAMOATE 25 MG CAPSULE (FP) PO PRN (21:42)
[2022-09-18] MEDS ORDERED: SUVOREXANT 10 MG TABLET PO PRN (22:00)
[2022-09-19] MEDS: busPIRone HCL 5 MG TABLET PO SCH (06:53)
[2022-09-19] MEDS: IBUPROFEN 400 MG TABLET (FP) PO PRN (06:54)
[2022-09-19 07:10] VITALS: TEMP 97.7
[2022-09-19] MEDS: BACITRACIN 15 GM TUBE TOPICAL OINTMENT TP SCH (10:10)
[2022-09-19] MEDS: PRENATAL VITAMINS W/ FOLIC ACID TABLET (FP) PO SCH (10:10)
[2022-09-19] MEDS: NICOTINE 7 MG/24 HOURS TOPICAL PATCH TD SCH (10:10)
[2022-09-19] MEDS: BICTEGRAV/EMTRICIT/TENOFOV (BIKTARVY) 50-200-25 MG TABLET PO SCH (10:11)
[2022-09-19] MEDS: ACETAMINOPHEN 325 MG TABLET (FP) PO PRN (10:53)
[2022-09-19 11:52] VITALS: BP 117/75; PULSE 80
== END 2022-09-19 12:14 | disposition left against medical advice (07) | DRG 770 ==
LOC: YASAS 09:00 → Y5N 11:35
PROVIDERS: ADMIT Allergy & Immunology; ATTEND Psychiatry & Neurology Pain Medicine
PROC: HZ42ZZZ Group Counseling for Substance Abuse Treatment, Cognitive-Behavioral (ICD-10-PCS; principal; 2022-09-17)
DX: F14.20 Cocaine dependence, uncomplicated (principal); F11.20 Opioid dependence, uncomplicated; F17.210 Nicotine dependence, cigarettes, uncomplicated; F31.9 Bipolar disorder, unspecified; F41.0 Panic disorder [episodic paroxysmal anxiety]; Z21 Asymptomatic human immunodeficiency virus [HIV] infection status; G47.00 Insomnia, unspecified; J45.909 Unspecified asthma, uncomplicated; M54.40 Lumbago with sciatica, unspecified side; G89.29 Other chronic pain; Z86.59 Personal history of other mental and behavioral disorders; Z86.69 Personal history of other diseases of the nervous system and sense organs; Z88.2 Allergy status to sulfonamides
CPT/HCPCS: 36415; 80053; 85027; 86593; 86780; C9803-CS; U0003; U0005

== ENCOUNTER 2022-10-03 22:36 | Inpatient (IN) | payer OTHER ==
[2022-10-03 23:41] VITALS: BMI 21.3
[2022-10-03] MEDS ORDERED: NICOTINE POLACRILEX 2 MG GUM BC PRN (23:50)
[2022-10-03] MEDS ORDERED: hydrOXYzine PAMOATE 25 MG CAPSULE (FP) PO PRN (23:50)
[2022-10-03] MEDS ORDERED: MAG HYDROX/AL HYDROX/SIMETH 30 ML UNIT-DOSE CUP PO PRN (23:50)
[2022-10-03] MEDS ORDERED: LOPERAMIDE HCL 2 MG CAPSULE PO PRN (23:50)
[2022-10-03] MEDS ORDERED: MAGNESIUM HYDROX 2400MG/30ML ORAL SUSPENSION 30 ML CUP PO PRN (23:50)
[2022-10-03] MEDS ORDERED: MAGNESIUM CITRATE 300 ML BOTTLE PO PRN (23:50)
[2022-10-03] MEDS ORDERED: COLLOIDAL OATMEAL 1 BAR EACH TP PRN (23:56)
[2022-10-04] MEDS: ACETAMINOPHEN 325 MG TABLET (FP) PO PRN ×2 (03:57→13:46)
[2022-10-04] MEDS: guaiFENesin 200 MG/10 ML 10 ML UNIT-DOSE CUPS PO PRN ×2 (04:01→10:59)
[2022-10-04] MEDS: ALBUTEROL SO4 HFA INHALER IH PRN ×3 (04:01→18:50)
[2022-10-04] MEDS ORDERED: methaDONE HCL 40 MG DISPERSABLE TABLET PO SCH (10:00)
[2022-10-04] MEDS: PRENATAL VITAMINS W/ FOLIC ACID TABLET (FP) PO SCH (10:20)
[2022-10-04] MEDS: BICTEGRAV/EMTRICIT/TENOFOV (BIKTARVY) 50-200-25 MG TABLET PO SCH (10:20)
[2022-10-04] MEDS: LIDOCAINE 5% TOPICAL PATCH TP SCH (10:21)
[2022-10-04] MEDS: NICOTINE 10 MG CARTRIDGE (INHALER) IH PRN ×2 (10:23→19:13)
[2022-10-04] MEDS: IBUPROFEN 400 MG TABLET (FP) PO PRN ×2 (10:59→18:50)
[2022-10-04] MEDS: P-EPHED 60MG/TRIPROLIDI 2.5MG TABLET PO PRN (11:00)
[2022-10-04] MEDS: busPIRone HCL 10 MG TABLET (FP) PO SCH ×2 (13:46→21:05)
[2022-10-04] MEDS: hydrOXYzine PAMOATE 25 MG CAPSULE (FP) PO PRN (13:47)
[2022-10-04] MEDS: BENZOCAINE/MENTHOL (CHLORASEPTIC ) LOZENGE MM PRN (15:43)
[2022-10-04] MEDS: METHYL SALICYLATE/MENTHOL OINT 30 GM TUBE TP PRN (15:44)
[2022-10-04] MEDS: THIAMINE HCL 100 MG TABLET (FP) PO SCH (21:05)
[2022-10-04] MEDS: SUVOREXANT 10 MG TABLET PO PRN (21:06)
[2022-10-04] MEDS: MELATONIN 5 MG TABLETS PO SCH (21:28)
[2022-10-04] MEDS: LIDOCAINE PATCH REMOVAL MC SCH (22:04)
[2022-10-05] MEDS: ALBUTEROL SO4 HFA INHALER IH PRN (06:11)
[2022-10-05] MEDS: hydrOXYzine PAMOATE 25 MG CAPSULE (FP) PO PRN ×3 (06:12→21:13)
[2022-10-05] MEDS: busPIRone HCL 10 MG TABLET (FP) PO SCH ×3 (06:12→21:13)
[2022-10-05] MEDS: guaiFENesin 200 MG/10 ML 10 ML UNIT-DOSE CUPS PO PRN (06:40)
[2022-10-05] MEDS: LIDOCAINE 5% TOPICAL PATCH TP SCH (09:34)
[2022-10-05] MEDS: METHYL SALICYLATE/MENTHOL OINT 30 GM TUBE TP PRN (09:35)
[2022-10-05] MEDS: PRENATAL VITAMINS W/ FOLIC ACID TABLET (FP) PO SCH (09:36)
[2022-10-05] MEDS: BICTEGRAV/EMTRICIT/TENOFOV (BIKTARVY) 50-200-25 MG TABLET PO SCH (09:36)
[2022-10-05] MEDS: NICOTINE 10 MG CARTRIDGE (INHALER) IH PRN ×3 (09:36→21:14)
[2022-10-05] MEDS ORDERED: AZITHROMYCIN 250 MG TABLET PO ONE (09:37)
[2022-10-05] MEDS: IBUPROFEN 400 MG TABLET (FP) PO PRN ×2 (09:37→21:59)
[2022-10-05] MEDS: P-EPHED 60MG/TRIPROLIDI 2.5MG TABLET PO PRN (09:40)
[2022-10-05] MEDS: BACLOFEN 10 MG TABLET (FP) PO PRN ×2 (11:28→21:13)
[2022-10-05] MEDS: BENZOCAINE/MENTHOL (CHLORASEPTIC ) LOZENGE MM PRN (19:46)
[2022-10-05] MEDS: THIAMINE HCL 100 MG TABLET (FP) PO SCH (21:13)
[2022-10-05] MEDS: SUVOREXANT 10 MG TABLET PO PRN (21:13)
[2022-10-05] MEDS: LIDOCAINE PATCH REMOVAL MC SCH (21:33)
[2022-10-05] MEDS: MELATONIN 5 MG TABLETS PO SCH (21:34)
[2022-10-06] MEDS: busPIRone HCL 10 MG TABLET (FP) PO SCH ×3 (06:20→21:11)
[2022-10-06] MEDS: hydrOXYzine PAMOATE 25 MG CAPSULE (FP) PO PRN (06:20)
[2022-10-06] MEDS: ALBUTEROL SO4 HFA INHALER IH PRN ×2 (06:20→11:15)
[2022-10-06] MEDS: IBUPROFEN 400 MG TABLET (FP) PO PRN ×2 (06:21→12:13)
[2022-10-06] MEDS: BENZOCAINE/MENTHOL (CHLORASEPTIC ) LOZENGE MM PRN ×4 (06:24→21:12)
[2022-10-06] MEDS: BICTEGRAV/EMTRICIT/TENOFOV (BIKTARVY) 50-200-25 MG TABLET PO SCH (09:03)
[2022-10-06] MEDS: PRENATAL VITAMINS W/ FOLIC ACID TABLET (FP) PO SCH (09:04)
[2022-10-06] MEDS: AZITHROMYCIN 250 MG TABLET PO SCH (09:04)
[2022-10-06] MEDS: LIDOCAINE 5% TOPICAL PATCH TP SCH (09:04)
[2022-10-06] MEDS: NICOTINE 10 MG CARTRIDGE (INHALER) IH PRN ×2 (11:17→14:37)
[2022-10-06] MEDS: BUDESONIDE/FORMETEROL FUMARATE 80/4.5 mcg INHALER IH SCH ×2 (12:13→21:13)
[2022-10-06] MEDS: ACETAMINOPHEN 325 MG TABLET (FP) PO PRN (14:05)
[2022-10-06] MEDS: LIDOCAINE PATCH REMOVAL MC SCH ×2 (16:04→21:12)
[2022-10-06] MEDS: MELATONIN 5 MG TABLETS PO SCH ×2 (16:04→21:10)
[2022-10-06 17:20] LABS: URINE APPEARANCE CLEAR; URINE BILIRUBIN NEGATIVE (NEGATIVE); URINE COLOR YELLOW; URINE GLUCOSE (UA) NEGATIVE (NEGATIVE); URINE KETONE NEGATIVE (NEGATIVE); URINE LEUK ESTERASE NEGATIVE (NEGATIVE); URINE NITRITE NEGATIVE (NEGATIVE); URINE PROTEIN NEGATIVE (NEGATIVE); URINE UROBILINOGEN 0.2 mg/dL (0.2-1.0)
[2022-10-06] MEDS: SUVOREXANT 10 MG TABLET PO PRN (21:11)
[2022-10-06] MEDS: BACLOFEN 10 MG TABLET (FP) PO PRN (21:11)
[2022-10-06] MEDS: THIAMINE HCL 100 MG TABLET (FP) PO SCH (21:13)
[2022-10-07] MEDS: IBUPROFEN 400 MG TABLET (FP) PO PRN ×2 (00:45→14:03)
[2022-10-07] MEDS: hydrOXYzine PAMOATE 25 MG CAPSULE (FP) PO PRN (00:46)
[2022-10-07] MEDS: ALBUTEROL SO4 HFA INHALER IH PRN ×2 (06:19→13:23)
[2022-10-07] MEDS: busPIRone HCL 10 MG TABLET (FP) PO SCH ×3 (06:20→21:43)
[2022-10-07 06:32] VITALS: RESP 18
[2022-10-07] MEDS: BICTEGRAV/EMTRICIT/TENOFOV (BIKTARVY) 50-200-25 MG TABLET PO SCH (10:11)
[2022-10-07] MEDS: BUDESONIDE/FORMETEROL FUMARATE 80/4.5 mcg INHALER IH SCH ×2 (10:11→21:44)
[2022-10-07] MEDS: PRENATAL VITAMINS W/ FOLIC ACID TABLET (FP) PO SCH (10:11)
[2022-10-07] MEDS: LIDOCAINE 5% TOPICAL PATCH TP SCH (10:12)
[2022-10-07] MEDS: NICOTINE 10 MG CARTRIDGE (INHALER) IH PRN ×4 (10:12→21:44)
[2022-10-07] MEDS: AZITHROMYCIN 250 MG TABLET PO SCH (10:12)
[2022-10-07] MEDS: BENZOCAINE/MENTHOL (CHLORASEPTIC ) LOZENGE MM PRN (14:05)
[2022-10-07] MEDS: ACETAMINOPHEN 325 MG TABLET (FP) PO PRN (18:54)
[2022-10-07] MEDS: THIAMINE HCL 100 MG TABLET (FP) PO SCH (21:43)
[2022-10-07] MEDS: MELATONIN 5 MG TABLETS PO SCH (21:43)
[2022-10-07] MEDS: SUVOREXANT 10 MG TABLET PO PRN (21:44)
[2022-10-07] MEDS: LIDOCAINE PATCH REMOVAL MC SCH (21:45)
[2022-10-08] MEDS: IBUPROFEN 400 MG TABLET (FP) PO PRN ×4 (01:56→21:33)
[2022-10-08] MEDS: busPIRone HCL 10 MG TABLET (FP) PO SCH ×3 (06:19→21:32)
[2022-10-08] MEDS: ALBUTEROL SO4 HFA INHALER IH PRN (06:19)
[2022-10-08] MEDS: hydrOXYzine PAMOATE 25 MG CAPSULE (FP) PO PRN ×2 (06:20→21:33)
[2022-10-08 10:05] VITALS: TEMP 97.1
[2022-10-08] MEDS: METHYL SALICYLATE/MENTHOL OINT 30 GM TUBE TP PRN (10:42)
[2022-10-08] MEDS: LIDOCAINE 5% TOPICAL PATCH TP SCH (10:42)
[2022-10-08] MEDS: BICTEGRAV/EMTRICIT/TENOFOV (BIKTARVY) 50-200-25 MG TABLET PO SCH (10:44)
[2022-10-08] MEDS: BUDESONIDE/FORMETEROL FUMARATE 80/4.5 mcg INHALER IH SCH ×2 (10:44→21:32)
[2022-10-08] MEDS: AZITHROMYCIN 250 MG TABLET PO SCH (10:44)
[2022-10-08] MEDS: PRENATAL VITAMINS W/ FOLIC ACID TABLET (FP) PO SCH (10:44)
[2022-10-08] MEDS: NICOTINE 10 MG CARTRIDGE (INHALER) IH PRN ×3 (10:47→19:44)
[2022-10-08] MEDS: ACETAMINOPHEN 325 MG TABLET (FP) PO PRN (19:45)
[2022-10-08] MEDS: THIAMINE HCL 100 MG TABLET (FP) PO SCH (21:32)
[2022-10-08] MEDS: SUVOREXANT 10 MG TABLET PO PRN (21:33)
[2022-10-08] MEDS: MELATONIN 5 MG TABLETS PO SCH (21:33)
[2022-10-08] MEDS: LIDOCAINE PATCH REMOVAL MC SCH (21:34)
[2022-10-09] MEDS: ACETAMINOPHEN 325 MG TABLET (FP) PO PRN ×2 (05:19→10:11)
[2022-10-09] MEDS: BENZOCAINE/MENTHOL (CHLORASEPTIC ) LOZENGE MM PRN (05:20)
[2022-10-09] MEDS: busPIRone HCL 10 MG TABLET (FP) PO SCH ×2 (06:14→13:44)
[2022-10-09] MEDS: BICTEGRAV/EMTRICIT/TENOFOV (BIKTARVY) 50-200-25 MG TABLET PO SCH (10:09)
[2022-10-09] MEDS: AZITHROMYCIN 250 MG TABLET PO SCH (10:09)
[2022-10-09] MEDS: BUDESONIDE/FORMETEROL FUMARATE 80/4.5 mcg INHALER IH SCH (10:10)
[2022-10-09] MEDS: PRENATAL VITAMINS W/ FOLIC ACID TABLET (FP) PO SCH (10:10)
[2022-10-09] MEDS: LIDOCAINE 5% TOPICAL PATCH TP SCH (10:10)
[2022-10-09] MEDS ORDERED: SUMAtriptan SUCCINATE 25 MG TABLET PO ONE (11:00)
[2022-10-09 11:20] VITALS: BP 117/70; PULSE 82
[2022-10-09] MEDS ORDERED: SUVOREXANT 10 MG TABLET PO PRN (22:00)
== END 2022-10-09 14:29 | disposition home or self-care (01) | DRG 772 ==
LOC: YASAS 22:36 → Y3W 10-04 03:39
PROVIDERS: ADMIT Allergy & Immunology; ATTEND Psychiatry & Neurology Pain Medicine
PROC: HZ42ZZZ Group Counseling for Substance Abuse Treatment, Cognitive-Behavioral (ICD-10-PCS; principal; 2022-10-04)
DX: F14.20 Cocaine dependence, uncomplicated (principal); F11.20 Opioid dependence, uncomplicated; F17.210 Nicotine dependence, cigarettes, uncomplicated; F19.24 Other psychoactive substance dependence with psychoactive substance-induced mood disorder; F31.9 Bipolar disorder, unspecified; F41.9 Anxiety disorder, unspecified; F41.0 Panic disorder [episodic paroxysmal anxiety]; Z21 Asymptomatic human immunodeficiency virus [HIV] infection status; J45.909 Unspecified asthma, uncomplicated; G43.909 Migraine, unspecified, not intractable, without status migrainosus; M54.50 Low back pain, unspecified; G89.29 Other chronic pain; Z88.2 Allergy status to sulfonamides; Z86.19 Personal history of other infectious and parasitic diseases
CPT/HCPCS: 81003; C9803-CS; J0475; U0003; U0005

== ENCOUNTER 2022-10-11 23:19 | Inpatient (IN) | payer OTHER ==
[2022-10-12] MEDS ORDERED: ACETAMINOPHEN 325 MG TABLET (FP) PO PRN (00:15)
[2022-10-12] MEDS ORDERED: MAGNESIUM HYDROX 2400MG/30ML ORAL SUSPENSION 30 ML CUP PO PRN (00:15)
[2022-10-12] MEDS ORDERED: MELATONIN 5 MG TABLETS PO PRN (00:15)
[2022-10-12] MEDS ORDERED: hydrOXYzine PAMOATE 25 MG CAPSULE (FP) PO PRN ×2 (00:15→08:00)
[2022-10-12] MEDS ORDERED: IBUPROFEN 400 MG TABLET (FP) PO PRN (00:15)
[2022-10-12] MEDS ORDERED: NICOTINE 10 MG CARTRIDGE (INHALER) IH PRN (00:15)
[2022-10-12] MEDS ORDERED: guaiFENesin 200 MG/10 ML 10 ML UNIT-DOSE CUPS PO PRN (00:15)
[2022-10-12] MEDS ORDERED: POLYETHYLENE GLYCOL (HEALTHYLAX) 3350 17 GM PACKET PO PRN (00:15)
[2022-10-12] MEDS ORDERED: LOPERAMIDE HCL 2 MG CAPSULE PO PRN (00:15)
[2022-10-12] MEDS ORDERED: P-EPHED 60MG/TRIPROLIDI 2.5MG TABLET PO PRN (00:15)
[2022-10-12] MEDS ORDERED: MAG HYDROX/AL HYDROX/SIMETH 30 ML UNIT-DOSE CUP PO PRN (00:15)
[2022-10-12] MEDS ORDERED: BENZOCAINE/MENTHOL (CHLORASEPTIC ) LOZENGE MM PRN (00:15)
[2022-10-12] MEDS ORDERED: ALBUTEROL SO4 HFA INHALER IH PRN (00:16)
[2022-10-12 02:20] VITALS: TEMP 97.5; BMI 22.6
[2022-10-12 06:48] VITALS: BP 138/80; PULSE 63; RESP 16
[2022-10-12] MEDS ORDERED: methaDONE HCL 10 MG TABLET PO ONE (09:22)
[2022-10-12] MEDS ORDERED: NALOXONE (NARCAN) HCL 4 MG/0.1 ML SPRAY NS SCH (09:30)
[2022-10-12] MEDS ORDERED: NALOXONE (NARCAN) HCL 4 MG/0.1 ML SPRAY NS PRN (09:53)
[2022-10-12] MEDS ORDERED: BUDESONIDE/FORMETEROL FUMARATE 80/4.5 mcg INHALER IH SCH (10:00)
[2022-10-12] MEDS ORDERED: BICTEGRAV/EMTRICIT/TENOFOV (BIKTARVY) 50-200-25 MG TABLET PO SCH (10:00)
[2022-10-12] MEDS ORDERED: PRENATAL VITAMINS W/ FOLIC ACID TABLET (FP) PO SCH (10:00)
[2022-10-12] MEDS ORDERED: busPIRone HCL 10 MG TABLET (FP) PO SCH (14:00)
[2022-10-12] MEDS ORDERED: SUVOREXANT 10 MG TABLET PO PRN (22:00)
[2022-10-12] MEDS ORDERED: THIAMINE HCL 100 MG TABLET (FP) PO SCH (22:00)
== END 2022-10-12 13:43 | disposition left against medical advice (07) | DRG 770 ==
LOC: YASAS 23:19 → Y3E 10-12 01:33
PROVIDERS: ADMIT Surgery; ATTEND Surgery
PROC: HZ42ZZZ Group Counseling for Substance Abuse Treatment, Cognitive-Behavioral (ICD-10-PCS; principal; 2022-10-12)
DX: F11.20 Opioid dependence, uncomplicated (principal); F14.20 Cocaine dependence, uncomplicated; F13.20 Sedative, hypnotic or anxiolytic dependence, uncomplicated; F17.210 Nicotine dependence, cigarettes, uncomplicated; F19.282 Other psychoactive substance dependence with psychoactive substance-induced sleep disorder; F19.280 Other psychoactive substance dependence with psychoactive substance-induced anxiety disorder; F31.9 Bipolar disorder, unspecified; F90.9 Attention-deficit hyperactivity disorder, unspecified type; Z21 Asymptomatic human immunodeficiency virus [HIV] infection status; Z86.69 Personal history of other diseases of the nervous system and sense organs; Z88.2 Allergy status to sulfonamides
CPT/HCPCS: 87811; C9803-CS; U0003; U0005

== ENCOUNTER 2023-11-06 01:14 | Inpatient (IN) | payer OTHER ==
[2023-11-06 02:15] VITALS: BMI 27.0
[2023-11-06] MEDS ORDERED: ALBUTEROL SO4 HFA INHALER IH PRN (02:40)
[2023-11-06] MEDS ORDERED: MAG HYDROX/AL HYDROX/SIMETH 30 ML UNIT-DOSE CUP PO PRN (02:41)
[2023-11-06] MEDS ORDERED: BISMUTH SUBSALICYLATE 524 MG/30 ML PO PRN (02:41)
[2023-11-06] MEDS ORDERED: clonazePAM 0.5 MG ODT TABLETS SL PRN (02:41)
[2023-11-06] MEDS ORDERED: cloNIDine HCL 0.1 MG TABLET PO PRN (02:41)
[2023-11-06] MEDS ORDERED: BENZONATATE 200 MG CAPSULE PO PRN (02:41)
[2023-11-06] MEDS ORDERED: DICYCLOMINE HCL 10 MG CAPSULE PO PRN (02:41)
[2023-11-06] MEDS ORDERED: MAGNESIUM HYDROX 2400MG/30ML ORAL SUSPENSION 30 ML CUP PO PRN (02:41)
[2023-11-06] MEDS ORDERED: NALOXONE HCL (KLOXXADO) 8 MG SPRAY NS PRN (02:41)
[2023-11-06] MEDS ORDERED: guaiFENesin 600 MG TABLET.ER (FP) PO PRN (02:41)
[2023-11-06] MEDS ORDERED: IBUPROFEN 400 MG TABLET (FP) PO PRN (02:41)
[2023-11-06] MEDS ORDERED: LOPERAMIDE HCL 2 MG CAPSULE PO PRN (02:41)
[2023-11-06] MEDS ORDERED: POLYETHYLENE GLYCOL (HEALTHYLAX) 3350 17 GM PACKET PO PRN (02:41)
[2023-11-06] MEDS ORDERED: ACETAMINOPHEN 325 MG TABLET (FP) PO PRN (02:41)
[2023-11-06] MEDS ORDERED: NALOXONE HCL 0.4 MG/ML VIAL IM PRN (02:41)
[2023-11-06] MEDS ORDERED: BENZOCAINE/MENTHOL (CHLORASEPTIC ) LOZENGE MM PRN (02:41)
[2023-11-06] MEDS ORDERED: NICOTINE POLACRILEX 4 MG GUM BUC PRN (02:41)
[2023-11-06] MEDS ORDERED: IBUPROFEN 600 MG TABLET (FP) PO PRN (02:41)
[2023-11-06] MEDS: BICTEGRAV/EMTRICIT/TENOFOV (BIKTARVY) 50-200-25 MG TABLET PO SCH (07:04)
[2023-11-06] MEDS ORDERED: methaDONE HCL 10 MG TABLET (FOR DETOX USE ONLY) PO ONE (10:00)
[2023-11-06] MEDS: NICOTINE 14 MG/24 HOURS TOPICAL PATCH TD SCH (10:25)
[2023-11-06] MEDS: PRENATAL VITAMINS W/ FOLIC ACID TABLET (FP) PO SCH (10:25)
[2023-11-06] MEDS ORDERED: THIAMINE HCL 100 MG TABLET (FP) PO SCH (22:00)
[2023-11-06] MEDS ORDERED: MELATONIN 5 MG TABLETS PO SCH (22:00)
[2023-11-06] MEDS ORDERED: SUVOREXANT 5 MG TABLET PO PRN (22:00)
[2023-11-07] MEDS: BICTEGRAV/EMTRICIT/TENOFOV (BIKTARVY) 50-200-25 MG TABLET PO SCH (07:01)
[2023-11-07 09:54] VITALS: BP 137/80; PULSE 86; RESP 17; TEMP 96.7
[2023-11-07] MEDS ORDERED: methaDONE HCL 10 MG TABLET (FOR DETOX USE ONLY) PO ONE (10:00)
[2023-11-07] MEDS: PRENATAL VITAMINS W/ FOLIC ACID TABLET (FP) PO SCH (10:20)
[2023-11-07] MEDS: NICOTINE 14 MG/24 HOURS TOPICAL PATCH TD SCH (10:21)
[2023-11-07 13:25] LABS: HEMATOCRIT 36.7 % (35.4-49); HEMOGLOBIN 12.5 GM/dL (11.7-16.9); MCH 33.5 pg (25.7-33.7); MEAN CELL VOLUME 98.6 fl (80-96); MEAN PLT VOLUME 8.9 fl (7.5-11.1); PLATELET COUNT 294 10^3/uL (134-434); RBC 3.72 M/mm3 (4.00-5.60); RDW 12.9 % (11.9-15.9); WHITE BLOOD COUNT 3.4 K/mm3 (4.0-10.0)
[2023-11-07 13:47] LABS: POTASSIUM 3.5 mmol/L (3.5-5.1)
[2023-11-07 13:52] LABS: BLOOD UREA NITROGEN 22.3 mg/dL (7-18); CALCIUM 8.5 mg/dL (8.5-10.1)
[2023-11-07 13:53] LABS: ALBUMIN 3.1 g/dl (3.4-5.0)
[2023-11-07 13:55] LABS: CREATININE 1.3 mg/dL (0.55-1.3)
[2023-11-07 13:57] LABS: BILIRUBIN,TOTAL 0.6 mg/dL (0.2-1); TOT PROT 6.6 g/dl (6.4-8.2)
[2023-11-08] MEDS ORDERED: methaDONE HCL 10 MG TABLET (FOR DETOX USE ONLY) PO ONE (10:00)
[2023-11-10] MEDS ORDERED: methaDONE HCL 10 MG TABLET (FOR DETOX USE ONLY) PO ONE (10:00)
== END 2023-11-07 11:17 | disposition left against medical advice (07) | DRG 770 ==
LOC: YASAS 01:14 → Y3N 04:14
PROVIDERS: ADMIT Allergy & Immunology; ATTEND Surgery
PROC: HZ2ZZZZ Detoxification Services for Substance Abuse Treatment (ICD-10-PCS; principal; 2023-11-06)
DX: F11.23 Opioid dependence with withdrawal (principal); F14.20 Cocaine dependence, uncomplicated; F17.210 Nicotine dependence, cigarettes, uncomplicated; F19.24 Other psychoactive substance dependence with psychoactive substance-induced mood disorder; B20 Human immunodeficiency virus [HIV] disease; G40.909 Epilepsy, unspecified, not intractable, without status epilepticus; G47.00 Insomnia, unspecified; J45.20 Mild intermittent asthma, uncomplicated; Z79.899 Other long term (current) drug therapy; Z86.19 Personal history of other infectious and parasitic diseases; Z91.199 Patient's noncompliance with other medical treatment and regimen due to unspecified reason; Z88.2 Allergy status to sulfonamides
CPT/HCPCS: 36415; 80053; 80307; 85027; 86593; 86780; 87635

== ENCOUNTER 2024-02-02 18:19 | Inpatient (IN) | payer OTHER ==
[2024-02-02 18:41] VITALS: BMI 23.7
[2024-02-02] MEDS ORDERED: MAGNESIUM HYDROX 2400MG/30ML ORAL SUSPENSION 30 ML CUP PO PRN (19:45)
[2024-02-02] MEDS ORDERED: DICYCLOMINE HCL 10 MG CAPSULE PO PRN (19:45)
[2024-02-02] MEDS ORDERED: hydrOXYzine PAMOATE 25 MG CAPSULE (FP) PO PRN (19:45)
[2024-02-02] MEDS ORDERED: MAG HYDROX/AL HYDROX/SIMETH 30 ML UNIT-DOSE CUP PO PRN (19:45)
[2024-02-02] MEDS ORDERED: ONDANSETRON *ODT* 4 MG TABLET SL PRN (19:45)
[2024-02-02] MEDS ORDERED: LOPERAMIDE HCL 2 MG CAPSULE PO PRN (19:45)
[2024-02-02] MEDS ORDERED: guaiFENesin 600 MG TABLET.ER (FP) PO PRN (19:45)
[2024-02-02] MEDS ORDERED: BENZONATATE 200 MG CAPSULE PO PRN (19:45)
[2024-02-02] MEDS ORDERED: IBUPROFEN 400 MG TABLET (FP) PO PRN (19:45)
[2024-02-02] MEDS ORDERED: POLYETHYLENE GLYCOL (HEALTHYLAX) 3350 17 GM PACKET PO PRN (19:45)
[2024-02-02] MEDS ORDERED: NALOXONE HCL 0.4 MG/ML VIAL IM PRN (19:45)
[2024-02-02] MEDS ORDERED: IBUPROFEN 600 MG TABLET (FP) PO PRN (19:45)
[2024-02-02] MEDS ORDERED: BISMUTH SUBSALICYLATE 524 MG/30 ML PO PRN (19:45)
[2024-02-02] MEDS ORDERED: ACETAMINOPHEN 325 MG TABLET (FP) PO PRN (19:45)
[2024-02-02] MEDS ORDERED: BENZOCAINE/MENTHOL (CHLORASEPTIC ) LOZENGE MM PRN (19:45)
[2024-02-02] MEDS ORDERED: NALOXONE HCL (KLOXXADO) 8 MG SPRAY NS PRN (19:45)
[2024-02-02] MEDS ORDERED: ALBUTEROL SO4 HFA INHALER IH PRN (20:11)
[2024-02-02] MEDS: METHOCARBAMOL 500 MG TABLET PO PRN (21:05)
[2024-02-02] MEDS: THIAMINE HCL 100 MG TABLET (FP) PO SCH (21:05)
[2024-02-02] MEDS: BUDESONIDE/FORMETEROL FUMARATE 80/4.5 mcg INHALER IH SCH (21:05)
[2024-02-02] MEDS: MELATONIN 5 MG TABLETS PO SCH (21:05)
[2024-02-02 21:11] VITALS: BP 114/70; PULSE 87; RESP 18; TEMP 98.2
[2024-02-03] MEDS ORDERED: BICTEGRAV/EMTRICIT/TENOFOV (BIKTARVY) 50-200-25 MG TABLET PO SCH (10:00)
[2024-02-03] MEDS ORDERED: PRENATAL VITAMINS W/ FOLIC ACID TABLET (FP) PO SCH (10:00)
== END 2024-02-02 21:54 | disposition left against medical advice (07) | DRG 770 ==
LOC: YASAS 18:19 → Y3N 20:11
PROVIDERS: ADMIT Allergy & Immunology; ATTEND Surgery
PROC: HZ2ZZZZ Detoxification Services for Substance Abuse Treatment (ICD-10-PCS; principal; 2024-02-02)
DX: F11.20 Opioid dependence, uncomplicated (principal); F14.20 Cocaine dependence, uncomplicated; F17.210 Nicotine dependence, cigarettes, uncomplicated; F31.9 Bipolar disorder, unspecified; Z21 Asymptomatic human immunodeficiency virus [HIV] infection status; M54.50 Low back pain, unspecified; G89.29 Other chronic pain; R56.1 Post traumatic seizures; Z87.820 Personal history of traumatic brain injury; Z88.2 Allergy status to sulfonamides
CPT/HCPCS: 0241U-QW; 80305; 87811; 93005; 93010

== ENCOUNTER 2024-02-26 21:39 | Inpatient (IN) | payer OTHER ==
[2024-02-26 22:39] VITALS: BMI 23.1
[2024-02-26] MEDS ORDERED: ONDANSETRON *ODT* 4 MG TABLET SL PRN (23:25)
[2024-02-26] MEDS ORDERED: POLYETHYLENE GLYCOL (HEALTHYLAX) 3350 17 GM PACKET PO PRN (23:25)
[2024-02-26] MEDS ORDERED: P-EPHED 60MG/TRIPROLIDI 2.5MG TABLET PO PRN (23:25)
[2024-02-26] MEDS ORDERED: LOPERAMIDE HCL 2 MG CAPSULE PO PRN (23:25)
[2024-02-26] MEDS ORDERED: MAGNESIUM HYDROX 2400MG/30ML ORAL SUSPENSION 30 ML CUP PO PRN (23:25)
[2024-02-26] MEDS ORDERED: NICOTINE POLACRILEX 2 MG LOZENGE BC PRN (23:25)
[2024-02-26] MEDS ORDERED: guaiFENesin 600 MG TABLET.ER (FP) PO PRN (23:25)
[2024-02-26] MEDS ORDERED: BISMUTH SUBSALICYLATE 524 MG/30 ML PO PRN (23:25)
[2024-02-26] MEDS ORDERED: MAG HYDROX/AL HYDROX/SIMETH 30 ML UNIT-DOSE CUP PO PRN (23:25)
[2024-02-26] MEDS ORDERED: IBUPROFEN 400 MG TABLET (FP) PO PRN (23:25)
[2024-02-26] MEDS ORDERED: DICYCLOMINE HCL 10 MG CAPSULE PO PRN (23:25)
[2024-02-26] MEDS ORDERED: ACETAMINOPHEN 325 MG TABLET (FP) PO PRN (23:25)
[2024-02-26] MEDS ORDERED: BENZONATATE 200 MG CAPSULE PO PRN (23:25)
[2024-02-27] MEDS: VITAMINS A AND D TOPICAL OINTMENT TP SCH (00:05)
[2024-02-27] MEDS: diphenhydrAMINE HCL 25 MG CAPSULE (FP) PO ONE (02:22)
[2024-02-27] MEDS: METHOCARBAMOL 500 MG TABLET PO PRN (02:37)
[2024-02-27] MEDS: NICOTINE POLACRILEX 2 MG GUM BUC PRN (06:52)
[2024-02-27] MEDS ORDERED: cloNIDine HCL 0.1 MG TABLET PO PRN (09:34)
[2024-02-27] MEDS: PRENATAL VITAMINS W/ FOLIC ACID TABLET (FP) PO SCH (10:11)
[2024-02-27] MEDS: BENZOCAINE/MENTHOL (CHLORASEPTIC ) LOZENGE MM PRN (11:21)
[2024-02-27] MEDS: BUDESONIDE/FORMETEROL FUMARATE 80/4.5 mcg INHALER IH SCH (11:21)
[2024-02-27] MEDS: methaDONE HCL 10 MG TABLET (FOR DETOX USE ONLY) PO ONE (11:22)
[2024-02-27] MEDS: BICTEGRAV/EMTRICIT/TENOFOV (BIKTARVY) 50-200-25 MG TABLET PO SCH (11:22)
[2024-02-27] MEDS: IBUPROFEN 600 MG TABLET (FP) PO PRN (19:01)
[2024-02-27] MEDS: THIAMINE 100 MG TABLET PO SCH (22:29)
[2024-02-27] MEDS: MELATONIN 5 MG TABLETS PO SCH (22:29)
[2024-02-28] MEDS: ALBUTEROL SO4 HFA INHALER IH PRN (21:36)
[2024-02-28] MEDS: hydrOXYzine PAMOATE 25 MG CAPSULE (FP) PO PRN (22:16)
[2024-02-28] MEDS: SUVOREXANT 10 MG TABLET PO PRN (22:16)
[2024-02-29] MEDS: methaDONE HCL 10 MG TABLET (FOR DETOX USE ONLY) PO ONE (10:31)
[2024-02-29] MEDS: LIDOCAINE 4% PATCH TP SCH (12:07)
[2024-02-29] MEDS: LIDOCAINE PATCH REMOVAL MC SCH (22:04)
[2024-03-02] MEDS: methaDONE HCL 10 MG TABLET (FOR DETOX USE ONLY) PO ONE (10:10)
[2024-03-02 16:59] VITALS: RESP 18
[2024-03-02] MEDS: SUVOREXANT 10 MG TABLET PO PRN (22:07)
[2024-03-03 13:19] VITALS: BP 111/64; PULSE 75; TEMP 96.8
== END 2024-03-03 13:23 | disposition other institution (70) | DRG 773 ==
LOC: YASAS 21:39 → Y3N 23:44
PROVIDERS: ADMIT Allergy & Immunology; ATTEND Surgery
PROC: HZ2ZZZZ Detoxification Services for Substance Abuse Treatment (ICD-10-PCS; principal; 2024-02-26)
DX: F11.23 Opioid dependence with withdrawal (principal); F14.20 Cocaine dependence, uncomplicated; F15.20 Other stimulant dependence, uncomplicated; F10.10 Alcohol abuse, uncomplicated; F17.210 Nicotine dependence, cigarettes, uncomplicated; F19.280 Other psychoactive substance dependence with psychoactive substance-induced anxiety disorder; F31.9 Bipolar disorder, unspecified; F41.9 Anxiety disorder, unspecified; Z21 Asymptomatic human immunodeficiency virus [HIV] infection status; R56.1 Post traumatic seizures; H54.62 Unqualified visual loss, left eye, normal vision right eye; Z88.2 Allergy status to sulfonamides
CPT/HCPCS: 87811

== ENCOUNTER 2024-03-03 13:52 | Inpatient (IN) | payer OTHER ==
[2024-03-03] MEDS ORDERED: MAG HYDROX/AL HYDROX/SIMETH 30 ML UNIT-DOSE CUP PO PRN (15:54)
[2024-03-03] MEDS ORDERED: LOPERAMIDE HCL 2 MG CAPSULE PO PRN (15:54)
[2024-03-03] MEDS ORDERED: NICOTINE POLACRILEX 4 MG LOZENGE BC PRN (15:54)
[2024-03-03] MEDS ORDERED: NALOXONE (NYS OPIOID OVERDOSE PROGRAM) 4 MG/0.1 ML SPRAY NS PRN (15:54)
[2024-03-03] MEDS ORDERED: NALOXONE HCL 0.4 MG/ML VIAL IVPUSH PRN (15:54)
[2024-03-03] MEDS ORDERED: BENZOCAINE/MENTHOL (CHLORASEPTIC ) LOZENGE MM PRN (15:54)
[2024-03-03] MEDS ORDERED: POLYETHYLENE GLYCOL (HEALTHYLAX) 3350 17 GM PACKET PO PRN (15:54)
[2024-03-03] MEDS ORDERED: BENZONATATE 200 MG CAPSULE PO PRN (15:54)
[2024-03-03] MEDS ORDERED: MAGNESIUM HYDROX 2400MG/30ML ORAL SUSPENSION 30 ML CUP PO PRN (15:54)
[2024-03-03] MEDS ORDERED: guaiFENesin 600 MG TABLET.ER (FP) PO PRN (15:54)
[2024-03-03] MEDS: IBUPROFEN 600 MG TABLET (FP) PO PRN (19:28)
[2024-03-03] MEDS: TUBERCULIN PPD 5 TU/0.1ML SYRINGE (IN PATIENT USE ONLY) ID ONE (19:40)
[2024-03-03] MEDS: MELATONIN 5 MG TABLETS PO SCH (21:27)
[2024-03-03] MEDS: THIAMINE HCL 100 MG TABLET (FP) PO SCH (21:27)
[2024-03-03] MEDS: METHOCARBAMOL 500 MG TABLET PO PRN (21:28)
[2024-03-04] MEDS: BICTEGRAV/EMTRICIT/TENOFOV (BIKTARVY) 50-200-25 MG TABLET PO SCH (10:37)
[2024-03-04] MEDS: PRENATAL VITAMINS W/ FOLIC ACID TABLET (FP) PO SCH (10:37)
[2024-03-04] MEDS: NICOTINE 21 MG/24 HOURS TOPICAL PATCH TD SCH (10:38)
[2024-03-04] MEDS ORDERED: BUPRENORPHINE HCL 150 MCG, BUPRENORPHINE HCL 75 MCG BC PRN (16:04)
[2024-03-04] MEDS ORDERED: diazePAM 5 MG TABLET PO PRN (16:04)
[2024-03-04] MEDS ORDERED: BUPRENORPHINE HCL 150 MCG, BUPRENORPHINE HCL 75 MCG BC ONE (16:04)
[2024-03-04] MEDS: BUPRENORPHINE HCL 150 MCG, BUPRENORPHINE HCL 75 MCG BC ONE (18:12)
[2024-03-04] MEDS: cloNIDine HCL 0.1 MG TABLET PO ONE ×2 (18:12→18:17)
[2024-03-04] MEDS: SUVOREXANT 10 MG TABLET PO PRN (21:47)
[2024-03-05] MEDS ORDERED: BUPRENORPHINE HCL 150 MCG, BUPRENORPHINE HCL 75 MCG BC PRN
[2024-03-05] MEDS: BUPRENORPHINE HCL 150 MCG, BUPRENORPHINE HCL 75 MCG BC SCH (06:14)
[2024-03-05] MEDS: hydrOXYzine PAMOATE 25 MG CAPSULE (FP) PO PRN (16:40)
[2024-03-05] MEDS: BUPRENORPHINE/NALOXONE 8 MG/2 MG FILM PACKET SL SCH (17:01)
[2024-03-05] MEDS: cloNIDine HCL 0.1 MG TABLET PO PRN (21:24)
[2024-03-05] MEDS: METHOCARBAMOL 500 MG TABLET PO PRN (21:24)
[2024-03-05] MEDS: SUVOREXANT 15 MG TABLET PO PRN (21:25)
[2024-03-06] MEDS: BUPRENORPHINE HCL 450 MCG FILM BC SCH (06:29)
[2024-03-07] MEDS: BUPRENORPHINE/NALOXONE 4 MG/1 MG FILM PACKET SL SCH (06:02)
[2024-03-07] MEDS: ACETAMINOPHEN 325 MG TABLET (FP) PO PRN (23:08)
[2024-03-08] MEDS: IBUPROFEN 400 MG TABLET (FP) PO PRN (06:19)
[2024-03-08] MEDS: BUPRENORPHINE/NALOXONE 8 MG/2 MG FILM PACKET SL SCH (06:51)
[2024-03-08] MEDS: ALBUTEROL SO4 HFA INHALER IH PRN (19:47)
[2024-03-09 20:54] VITALS: RESP 17
[2024-03-10 07:12] VITALS: BP 112/75; PULSE 86; TEMP 98.5
[2024-03-10] MEDS: NICOTINE POLACRILEX 4 MG GUM BUC PRN (09:19)
[2024-03-10] MEDS ORDERED: SUVOREXANT 15 MG TABLET PO PRN (22:00)
== END 2024-03-10 15:12 | disposition left against medical advice (07) | DRG 770 ==
LOC: YASAS 13:52 → Y3E 13:53
PROVIDERS: ADMIT Allergy & Immunology; ATTEND Psychiatry & Neurology Pain Medicine
PROC: HZ42ZZZ Group Counseling for Substance Abuse Treatment, Cognitive-Behavioral (ICD-10-PCS; principal; 2024-03-03)
DX: F11.20 Opioid dependence, uncomplicated (principal); F14.20 Cocaine dependence, uncomplicated; F15.10 Other stimulant abuse, uncomplicated; F17.210 Nicotine dependence, cigarettes, uncomplicated; F19.282 Other psychoactive substance dependence with psychoactive substance-induced sleep disorder; F31.9 Bipolar disorder, unspecified; F41.9 Anxiety disorder, unspecified; B20 Human immunodeficiency virus [HIV] disease; H54.62 Unqualified visual loss, left eye, normal vision right eye; R56.1 Post traumatic seizures; Z62.810 Personal history of physical and sexual abuse in childhood; Z79.899 Other long term (current) drug therapy; Z86.19 Personal history of other infectious and parasitic diseases; Z88.2 Allergy status to sulfonamides

== ENCOUNTER 2024-03-12 18:53 | Observation (INO) | payer OTHER ==
[2024-03-12 18:58] VITALS: BMI 24.3
[2024-03-12 20:12] LABS: BASO % 1.1 % (0-2.0); EOS % 2.2 % (0-4.5); HEMATOCRIT 32.3 % (35.4-49); HEMOGLOBIN 11.2 GM/dL (11.7-16.9); LYMPH % 18.9 % (8-40); MCH 31.5 pg (25.7-33.7); MCHC 34.6 g/dl (32.0-35.9); MEAN CELL VOLUME 91.1 fl (80-96); MEAN PLT VOLUME 6.3 fl (7.5-11.1); MONO % 10.4 % (3.8-10.2); NEUT % 67.4 % (42.8-82.8); PLATELET COUNT 465 10^3/uL (134-434); RBC 3.55 M/mm3 (4.00-5.60); RDW 13.6 % (11.9-15.9); WHITE BLOOD COUNT 4.8 K/mm3 (4.0-10.0)
[2024-03-12] MEDS ORDERED: IBUPROFEN 600 MG TABLET (FP) PO ONE (20:12)
[2024-03-12] MEDS: IBUPROFEN 600 MG TABLET (FP) PO ONE (20:15)
[2024-03-12 20:31] LABS: INR 1.09 (0.83-1.09); PROTHROMBIN TIME (PATIENT) 12.6 SEC (9.7-13.0)
[2024-03-12 20:33] LABS: POTASSIUM 4.1 mmol/L (3.5-5.1)
[2024-03-12 20:34] LABS: ACTIVATED PTT 28.8 SECONDS (25.2-36.5)
[2024-03-12 20:35] LABS: CALCIUM 8.3 mg/dL (8.5-10.1)
[2024-03-12 20:36] LABS: ALBUMIN 2.8 g/dl (3.4-5.0)
[2024-03-12 20:40] LABS: BILIRUBIN,TOTAL 0.3 mg/dL (0.2-1)
[2024-03-12 20:41] LABS: TOT PROT 7.6 g/dl (6.4-8.2)
[2024-03-12] MEDS ORDERED: VANCOMYCIN HCL 1,500 MG in DEXTROSE 5%-WATER - 500 ML IVPB ONE (21:37)
[2024-03-12] MEDS ORDERED: CEFEPIME 1 GM/100 ML BAG IVPB ONE (22:07)
[2024-03-12] MEDS: CEFEPIME HCL 1 GM VIAL (RESTRICTED TO ID) IVPB ONE (22:28)
[2024-03-12] MEDS: LACTATED RINGERS SOLUTION 1000 ML INFUS.BAG IV ONE (23:06)
[2024-03-12] MEDS: VANCOMYCIN PREMIX 1.5 GM 1,500 MG/300 ML BAG IVPB ONE (23:15)
[2024-03-13] MEDS ORDERED: ACETAMINOPHEN 325 MG TABLET (FP) PO PRN (00:28)
[2024-03-13] MEDS ORDERED: ALBUTEROL SO4 HFA INHALER IH PRN (01:03)
[2024-03-13 06:30] VITALS: BP 110/70; PULSE 82; RESP 18; TEMP 98.7
[2024-03-13 07:14] LABS: HIV INTERPRETATION PRESUMPTIVE POSITIVE (NEGATIVE)
[2024-03-13 08:56] LABS: BASO % 0.8 % (0-2.0); EOS % 1.2 % (0-4.5); HEMATOCRIT 34.5 % (35.4-49); HEMOGLOBIN 11.6 GM/dL (11.7-16.9); LYMPH % 8.4 % (8-40); MCH 30.9 pg (25.7-33.7); MCHC 33.6 g/dl (32.0-35.9); MEAN CELL VOLUME 92.1 fl (80-96); MEAN PLT VOLUME 6.8 fl (7.5-11.1); MONO % 2.1 % (3.8-10.2); NEUT % 87.5 % (42.8-82.8); PLATELET COUNT 482 10^3/uL (134-434); RBC 3.75 M/mm3 (4.00-5.60); RDW 13.5 % (11.9-15.9); WHITE BLOOD COUNT 6.1 K/mm3 (4.0-10.0)
[2024-03-13 09:19] LABS: POTASSIUM 4.4 mmol/L (3.5-5.1)
[2024-03-13 09:59] LABS: ALBUMIN 2.7 g/dl (3.4-5.0); BLOOD UREA NITROGEN 24.4 mg/dL (7-18)
[2024-03-13 10:00] LABS: MAGNESIUM 2.4 mg/dL (1.8-2.4)
[2024-03-13] MEDS ORDERED: ENOXAPARIN NA (PORCINE) 40 MG/0.4 ML DISP.SYRIN SQ SCH (10:00)
[2024-03-13 10:01] LABS: CREATININE 0.9 mg/dL (0.55-1.3); PHOSPHOROUS 2.8 mg/dL (2.5-4.9)
[2024-03-13 10:03] LABS: BILIRUBIN,TOTAL 0.4 mg/dL (0.2-1); TOT PROT 7.7 g/dl (6.4-8.2)
[2024-03-13] MEDS: BUDESONIDE/FORMETEROL FUMARATE 80/4.5 mcg INHALER IH SCH (10:42)
== END 2024-03-13 11:31 | disposition left against medical advice (07) ==
LOC: JER 18:53 → JERBED 22:53 → J7W 03-13 01:52
PROVIDERS: ADMIT Internal Medicine; ATTEND Nurse Practitioner Family
PROC: 3E03329 Introduction of Other Anti-infective into Peripheral Vein, Percutaneous Approach (ICD-10-PCS; principal; 2024-03-12)
PROC: 3E03329 Introduction of Other Anti-infective into Peripheral Vein, Percutaneous Approach (ICD-10-PCS; 2024-03-12)
PROC: 3E0337Z Introduction of Electrolytic and Water Balance Substance into Peripheral Vein, Percutaneous Approach (ICD-10-PCS; 2024-03-12)
DX: M71.21 Synovial cyst of popliteal space [Baker], right knee (principal); E78.5 Hyperlipidemia, unspecified; F14.90 Cocaine use, unspecified, uncomplicated; M79.661 Pain in right lower leg; R56.9 Unspecified convulsions; Z09 Encounter for follow-up examination after completed treatment for conditions other than malignant neoplasm; Z87.820 Personal history of traumatic brain injury; B20 Human immunodeficiency virus [HIV] disease; J45.909 Unspecified asthma, uncomplicated
CPT/HCPCS: 36415; 71046-TC-FY; 73701-TC-RT; 80053; 83735; 83880; 84100; 85025; 85610; 85651; 85730; 86140; 86359; 86360; 86850; 86900; 86901; 87389; 87536; 93005; 93010; 93970-TC; 96365; 96374; 99285-25; G0378; Q9967

== ENCOUNTER 2024-04-13 13:23 | Inpatient (IN) | payer OTHER ==
[2024-04-13 13:30] VITALS: BMI 24.4
[2024-04-13] MEDS ORDERED: AMPICILLIN SODIUM 2 GM VIAL ONE (15:09)
[2024-04-13] MEDS ORDERED: ACETAMINOPHEN INJECTION 100 ML IVPB ONE (15:09)
[2024-04-13] MEDS ORDERED: LIDOCAINE 4% PATCH TP ONE (15:09)
[2024-04-13 15:10] LABS: BASO % 0.6 % (0-2.0); EOS % 5.1 % (0-4.5); HEMATOCRIT 30.1 % (35.4-49); HEMOGLOBIN 10.1 GM/dL (11.7-16.9); LYMPH % 35.8 % (8-40); MCH 31.2 pg (25.7-33.7); MCHC 33.5 g/dl (32.0-35.9); MEAN CELL VOLUME 92.9 fl (80-96); MEAN PLT VOLUME 6.9 fl (7.5-11.1); MONO % 7.5 % (3.8-10.2); PLATELET COUNT 266 10^3/uL (134-434); RBC 3.24 M/mm3 (4.00-5.60); RDW 15.3 % (11.9-15.9); WHITE BLOOD COUNT 2.4 K/mm3 (4.0-10.0)
[2024-04-13] MEDS: LIDOCAINE 4% PATCH TP ONE (15:15)
[2024-04-13] MEDS: LACTATED RINGERS SOLUTION 1000 ML INFUS.BAG IV ONE (15:25)
[2024-04-13] MEDS: ACETAMINOPHEN 1000 MG/100 ML BAG IVPB ONE (15:25)
[2024-04-13 15:34] LABS: POTASSIUM 3.7 mmol/L (3.5-5.1)
[2024-04-13 15:35] LABS: CALCIUM 8.4 mg/dL (8.5-10.1)
[2024-04-13 15:36] LABS: ALBUMIN 3.1 g/dl (3.4-5.0); BLOOD UREA NITROGEN 24.8 mg/dL (7-18)
[2024-04-13 15:39] LABS: CREATININE 0.9 mg/dL (0.55-1.3)
[2024-04-13] MEDS: AMPICILLIN - 2 GM in SODIUM CHLORIDE 100 ML IVPB ONE (15:40)
[2024-04-13 15:41] LABS: BILIRUBIN,TOTAL 0.3 mg/dL (0.2-1); TOT PROT 6.8 g/dl (6.4-8.2)
[2024-04-13] MEDS ORDERED: CEFEPIME 2 GM/100 ML BAG IVPB ONE (16:09)
[2024-04-13] MEDS: CEFEPIME HCL 2 GM VIAL (RESTRICTED TO ID) IVPB ONE (16:12)
[2024-04-13] MEDS: VANCOMYCIN HCL 1,500 MG in DEXTROSE 5%-WATER - 500 ML IVPB ONE (17:13)
[2024-04-13] MEDS: VANCOMYCIN PREMIX 1.5 GM 1,500 MG/300 ML BAG IVPB ONE (17:57)
[2024-04-13] MEDS ORDERED: ACETAMINOPHEN 1000 MG/100 ML BAG IVPB PRN (20:37)
[2024-04-13] MEDS ORDERED: ALBUTEROL SO4 HFA INHALER IH PRN (20:59)
[2024-04-13] MEDS: SODIUM CHLORIDE 1,000 ML IV SCH (21:03)
[2024-04-13] MEDS ORDERED: levETIRAcetam 500 MG TABLET (FP) PO ONE (21:08)
[2024-04-13] MEDS: levETIRAcetam 500 MG TABLET (FP) PO SCH (21:16)
[2024-04-13] MEDS: BUDESONIDE/FORMETEROL FUMARATE 80/4.5 mcg INHALER IH SCH (21:16)
[2024-04-14] MEDS ORDERED: VANCOMYCIN HCL 1,500 MG in DEXTROSE 5%-WATER - 500 ML IVPB SCH
[2024-04-14] MEDS ORDERED: VANCOMYCIN 1,000 MG in DEXTROSE 5%-WATER - 250 ML IVPB SCH (02:00)
[2024-04-14] MEDS: VANCOMYCIN/WATER FOR INJ (PEG) 1,000 MG/200 ML BAG IVPB ONE (05:32)
[2024-04-14] MEDS: ENOXAPARIN NA (PORCINE) 40 MG/0.4 ML DISP.SYRIN SQ SCH (09:30)
[2024-04-14 09:41] LABS: HEMATOCRIT 34.1 % (35.4-49); HEMOGLOBIN 11.9 GM/dL (11.7-16.9); MCHC 34.9 g/dl (32.0-35.9); MEAN CELL VOLUME 91.9 fl (80-96); MEAN PLT VOLUME 7.6 fl (7.5-11.1); PLATELET COUNT 293 10^3/uL (134-434); RBC 3.71 M/mm3 (4.00-5.60); RDW 14.9 % (11.9-15.9); WHITE BLOOD COUNT 2.6 K/mm3 (4.0-10.0)
[2024-04-14 10:16] LABS: POTASSIUM 3.7 mmol/L (3.5-5.1)
[2024-04-14 10:24] LABS: PHENCYCLIDINE,URINE NEGATIVE (NEGATIVE); URINE BENZODIAZEPINES NEGATIVE (NEGATIVE)
[2024-04-14 10:25] LABS: OPIATES, URI NEGATIVE (NEGATIVE); URINE AMPHETAMINES NEGATIVE (NEGATIVE); URINE BARBITURATES NEGATIVE (NEGATIVE)
[2024-04-14 10:25] LABS: CALCIUM 8.7 mg/dL (8.5-10.1)
[2024-04-14 10:26] LABS: MAGNESIUM 1.9 mg/dL (1.8-2.4)
[2024-04-14 10:29] LABS: CREATININE 0.8 mg/dL (0.55-1.3); PHOSPHOROUS 2.8 mg/dL (2.5-4.9)
[2024-04-14 10:30] LABS: BILIRUBIN,TOTAL 0.4 mg/dL (0.2-1)
[2024-04-14 10:30] LABS: COCAINE, UR POSITIVE (NEGATIVE); METHADONE, UR NEGATIVE (NEGATIVE)
[2024-04-14 10:31] LABS: TOT PROT 6.7 g/dl (6.4-8.2)
[2024-04-14] MEDS: PRENATAL VITAMINS W/ FOLIC ACID TABLET (FP) PO SCH (10:41)
[2024-04-14] MEDS ORDERED: cloNIDine HCL 0.1 MG TABLET PO PRN (12:15)
[2024-04-14] MEDS ORDERED: PENICILLIN G POTASSIUM 20,000,000 (20Mm) UNITS VIAL IVPB SCH (12:30)
[2024-04-14] MEDS: BICTEGRAV/EMTRICIT/TENOFOV (BIKTARVY) 50-200-25 MG TABLET PO SCH (12:51)
[2024-04-14] MEDS ORDERED: methaDONE HCL 10 MG TABLET (FOR DETOX USE ONLY) PO ONE (13:00)
[2024-04-14] MEDS: methaDONE HCL 10 MG TABLET PO ONE (13:13)
[2024-04-14] MEDS: NICOTINE 14 MG/24 HOURS TOPICAL PATCH TD SCH (13:18)
[2024-04-14] MEDS: PENICILLIN POTASSIUM IVPB SCH (13:20)
[2024-04-14] MEDS: DEXTROSE 5% IVPB SCH (13:20)
[2024-04-14] MEDS: WATER IVPB SCH (13:20)
[2024-04-15] MEDS: ATOVAQUONE 750 MG/5 ML (UNIT-DOSE PACKAGING) PO SCH (08:05)
[2024-04-15 09:51] LABS: BASO % 0.4 % (0-2.0); EOS % 6.1 % (0-4.5); HEMATOCRIT 34.8 % (35.4-49); LYMPH % 39.5 % (8-40); MCH 31.5 pg (25.7-33.7); MCHC 34.6 g/dl (32.0-35.9); MEAN CELL VOLUME 91.2 fl (80-96); MEAN PLT VOLUME 8.2 fl (7.5-11.1); MONO % 8.5 % (3.8-10.2); NEUT % 45.5 % (42.8-82.8); PLATELET COUNT 319 10^3/uL (134-434); RBC 3.82 M/mm3 (4.00-5.60); RDW 15.1 % (11.9-15.9); WHITE BLOOD COUNT 2.5 K/mm3 (4.0-10.0)
[2024-04-15 09:55] LABS: POTASSIUM 3.9 mmol/L (3.5-5.1)
[2024-04-15 10:14] LABS: CALCIUM 8.6 mg/dL (8.5-10.1)
[2024-04-15 10:15] LABS: BLOOD UREA NITROGEN 10.8 mg/dL (7-18)
[2024-04-15 10:17] LABS: CREATININE 0.9 mg/dL (0.55-1.3); PHOSPHOROUS 3.7 mg/dL (2.5-4.9)
[2024-04-15] MEDS: LACTATED RINGERS SOLUTION 1,000 ML/1,000 ML INFUS.BAG IV SCH (10:57)
[2024-04-16 08:51] LABS: HEMATOCRIT 37.5 % (35.4-49); HEMOGLOBIN 12.9 GM/dL (11.7-16.9); MCH 31.7 pg (25.7-33.7); MCHC 34.5 g/dl (32.0-35.9); MEAN CELL VOLUME 91.9 fl (80-96); MEAN PLT VOLUME 7.6 fl (7.5-11.1); PLATELET COUNT 373 10^3/uL (134-434); RBC 4.08 M/mm3 (4.00-5.60); RDW 15.4 % (11.9-15.9); WHITE BLOOD COUNT 3.6 K/mm3 (4.0-10.0)
[2024-04-16 09:10] LABS: BLOOD UREA NITROGEN 13.5 mg/dL (7-18)
[2024-04-16 09:12] LABS: CREATININE 0.9 mg/dL (0.55-1.3)
[2024-04-16] MEDS: methaDONE HCL 10 MG TABLET PO ONE (10:16)
[2024-04-17 09:37] LABS: HEMATOCRIT 39.5 % (35.4-49); HEMOGLOBIN 13.6 GM/dL (11.7-16.9); MCH 31.8 pg (25.7-33.7); MCHC 34.5 g/dl (32.0-35.9); MEAN PLT VOLUME 7.1 fl (7.5-11.1); PLATELET COUNT 397 10^3/uL (134-434); RBC 4.29 M/mm3 (4.00-5.60); RDW 15.5 % (11.9-15.9); WHITE BLOOD COUNT 4.3 K/mm3 (4.0-10.0)
[2024-04-17 09:56] LABS: POTASSIUM 4.1 mmol/L (3.5-5.1)
[2024-04-17 09:57] LABS: CALCIUM 9.8 mg/dL (8.5-10.1)
[2024-04-17 09:58] LABS: ALBUMIN 3.5 g/dl (3.4-5.0); BLOOD UREA NITROGEN 17.3 mg/dL (7-18)
[2024-04-17 10:02] LABS: CREATININE 1.1 mg/dL (0.55-1.3)
[2024-04-17 10:03] LABS: BILIRUBIN,TOTAL 0.4 mg/dL (0.2-1); TOT PROT 7.7 g/dl (6.4-8.2)
[2024-04-18] MEDS: methaDONE HCL 10 MG TABLET PO ONE (10:12)
[2024-04-18] MEDS ORDERED: NALOXONE HCL 0.4 MG/ML VIAL ONE (15:23)
[2024-04-18] MEDS: NALOXONE HCL 1 MG/ML ML SQ ONE (15:26)
[2024-04-18] MEDS: NALOXONE HCL 0.4 MG/ML VIAL IVPUSH ONE ×2 (15:31→15:39)
[2024-04-18] MEDS: NALOXONE HCL 0.4 MG/ML VIAL IM ONE ×2 (15:31)
[2024-04-18] MEDS ORDERED: NALOXONE HCL 0.4 MG/ML VIAL IVPUSH PRN (15:58)
[2024-04-18] MEDS ORDERED: DOCUSATE SODIUM 100 MG CAPSULE (FP) PO PRN (17:49)
[2024-04-18] MEDS: POLYETHYLENE GLYCOL (HEALTHYLAX) 3350 17 GM PACKET PO SCH (18:13)
[2024-04-18] MEDS: ACETAMINOPHEN 325 MG TABLET (FP) PO PRN (21:23)
[2024-04-18] MEDS: ONDANSETRON *ODT* 4 MG TABLET SL ONE (23:15)
[2024-04-19 08:58] LABS: BASO % 0.9 % (0-2.0); HEMATOCRIT 37.5 % (35.4-49); HEMOGLOBIN 12.6 GM/dL (11.7-16.9); LYMPH % 25.9 % (8-40); MCH 30.9 pg (25.7-33.7); MCHC 33.5 g/dl (32.0-35.9); MEAN CELL VOLUME 92.1 fl (80-96); MEAN PLT VOLUME 7.5 fl (7.5-11.1); MONO % 9.1 % (3.8-10.2); NEUT % 63.1 % (42.8-82.8); PLATELET COUNT 419 10^3/uL (134-434); RBC 4.08 M/mm3 (4.00-5.60); RDW 15.6 % (11.9-15.9)
[2024-04-19 09:19] LABS: POTASSIUM 4.3 mmol/L (3.5-5.1)
[2024-04-19 09:27] LABS: ALBUMIN 3.9 g/dl (3.4-5.0); BLOOD UREA NITROGEN 30.3 mg/dL (7-18); CALCIUM 9.4 mg/dL (8.5-10.1)
[2024-04-19 09:30] LABS: CREATININE 1.5 mg/dL (0.55-1.3)
[2024-04-19 09:32] LABS: BILIRUBIN,TOTAL 0.6 mg/dL (0.2-1)
[2024-04-19] MEDS ORDERED: cloNIDine HCL 0.1 MG TABLET PO PRN (09:36)
[2024-04-19] MEDS: LACTATED RINGERS SOLUTION 1,000 ML/1,000 ML INFUS.BAG IV SCH (10:30)
[2024-04-19 17:47] LABS: URINE APPEARANCE CLEAR; URINE BILIRUBIN NEGATIVE (NEGATIVE); URINE COLOR YELLOW; URINE GLUCOSE (UA) NEGATIVE (NEGATIVE); URINE KETONE TRACE (NEGATIVE); URINE LEUK ESTERASE NEGATIVE (NEGATIVE); URINE NITRITE NEGATIVE (NEGATIVE); URINE PROTEIN NEGATIVE (NEGATIVE); URINE UROBILINOGEN 0.2 mg/dL (0.2-1.0)
[2024-04-19 18:23] LABS: COCAINE, UR NEGATIVE (NEGATIVE)
[2024-04-19 18:24] LABS: PHENCYCLIDINE,URINE NEGATIVE (NEGATIVE); URINE BARBITURATES NEGATIVE (NEGATIVE)
[2024-04-19 18:32] LABS: METHADONE, UR POSITIVE (NEGATIVE); OPIATES, URI POSITIVE (NEGATIVE); URINE AMPHETAMINES NEGATIVE (NEGATIVE); URINE BENZODIAZEPINES POSITIVE (NEGATIVE)
[2024-04-20 09:26] LABS: POTASSIUM 4.7 mmol/L (3.5-5.1)
[2024-04-20 09:27] LABS: CALCIUM 9.2 mg/dL (8.5-10.1)
[2024-04-20 09:28] LABS: BLOOD UREA NITROGEN 22.6 mg/dL (7-18)
[2024-04-20 09:31] LABS: CREATININE 1.2 mg/dL (0.55-1.3)
[2024-04-20] MEDS: methaDONE HCL 10 MG TABLET PO ONE (09:54)
[2024-04-20 14:19] VITALS: RESP 18
[2024-04-21] MEDS: NICOTINE POLACRILEX 4 MG GUM BUC ONE (16:32)
[2024-04-21] MEDS: NICOTINE POLACRILEX 4 MG GUM BUC PRN (18:31)
[2024-04-22 05:31] VITALS: BP 102/59; PULSE 56; TEMP 97.9
[2024-04-22 09:51] LABS: POTASSIUM 4.2 mmol/L (3.5-5.1)
[2024-04-22 09:53] LABS: ALBUMIN 3.7 g/dl (3.4-5.0); BLOOD UREA NITROGEN 19.8 mg/dL (7-18); CALCIUM 9.4 mg/dL (8.5-10.1)
[2024-04-22 09:57] LABS: CREATININE 1.2 mg/dL (0.55-1.3)
[2024-04-22 09:58] LABS: BILIRUBIN,TOTAL 0.6 mg/dL (0.2-1); TOT PROT 7.9 g/dl (6.4-8.2)
[2024-04-22] MEDS: methaDONE HCL 10 MG TABLET PO ONE (10:00)
[2024-04-22] MEDS: PENICILLIN G BENZATHINE 2,400,000 UNIT/4 ML PFS IM ONE (11:00)
== END 2024-04-22 11:56 | disposition left against medical advice (07) | DRG 890 ==
LOC: JER 13:23 → JERBED 19:59 → J6S 04-14 00:22
PROVIDERS: ADMIT Internal Medicine; ATTEND Internal Medicine
DX: B20 Human immunodeficiency virus [HIV] disease (principal); A52.3 Neurosyphilis, unspecified; N17.9 Acute kidney failure, unspecified; F11.229 Opioid dependence with intoxication, unspecified; G03.9 Meningitis, unspecified; E78.5 Hyperlipidemia, unspecified; F17.210 Nicotine dependence, cigarettes, uncomplicated; F31.9 Bipolar disorder, unspecified; F90.9 Attention-deficit hyperactivity disorder, unspecified type; G40.909 Epilepsy, unspecified, not intractable, without status epilepticus; H40.9 Unspecified glaucoma; J45.909 Unspecified asthma, uncomplicated; M54.2 Cervicalgia; R51.9 Headache, unspecified; E86.0 Dehydration; H54.40 Blindness, one eye, unspecified eye; M54.50 Low back pain, unspecified; F41.8 Other specified anxiety disorders; G47.00 Insomnia, unspecified; Z87.820 Personal history of traumatic brain injury
CPT/HCPCS: 0241U-QW; 36415; 70450-TC; 71045-TC-FY; 72125-TC; 80048; 80053; 80307; 81003; 82955; 82962; 83615; 83735; 84100; 85025; 85027; 86359; 86360; 86593; 86780; 87040; 93005; 93010; 99285-25; J0131; Q0162

== ENCOUNTER 2024-05-02 00:50 | Inpatient (IN) | payer SELFPAY ==
[2024-05-02 02:04] VITALS: BMI 22.1
[2024-05-02] MEDS ORDERED: ONDANSETRON *ODT* 4 MG TABLET SL PRN (03:06)
[2024-05-02] MEDS ORDERED: IBUPROFEN 400 MG TABLET (FP) PO PRN (03:06)
[2024-05-02] MEDS ORDERED: hydrOXYzine PAMOATE 25 MG CAPSULE (FP) PO PRN (03:06)
[2024-05-02] MEDS ORDERED: METHOCARBAMOL 500 MG TABLET PO PRN (03:06)
[2024-05-02] MEDS ORDERED: NALOXONE HCL 0.4 MG/ML VIAL IM PRN (03:06)
[2024-05-02] MEDS ORDERED: IBUPROFEN 600 MG TABLET (FP) PO PRN (03:06)
[2024-05-02] MEDS ORDERED: POLYETHYLENE GLYCOL (HEALTHYLAX) 3350 17 GM PACKET PO PRN (03:06)
[2024-05-02] MEDS ORDERED: NALOXONE (NARCAN) HCL 4 MG/0.1 ML SPRAY NS PRN (03:06)
[2024-05-02] MEDS ORDERED: LOPERAMIDE HCL 2 MG CAPSULE PO PRN (03:06)
[2024-05-02] MEDS ORDERED: MAG HYDROX/AL HYDROX/SIMETH 30 ML UNIT-DOSE CUP PO PRN (03:06)
[2024-05-02] MEDS ORDERED: ACETAMINOPHEN 325 MG TABLET (FP) PO PRN (03:06)
[2024-05-02] MEDS ORDERED: guaiFENesin 600 MG TABLET.ER (FP) PO PRN (03:06)
[2024-05-02] MEDS ORDERED: MAGNESIUM HYDROX 2400MG/30ML ORAL SUSPENSION 30 ML CUP PO PRN (03:06)
[2024-05-02] MEDS ORDERED: DICYCLOMINE HCL 10 MG CAPSULE PO PRN (03:06)
[2024-05-02] MEDS ORDERED: NICOTINE POLACRILEX 4 MG GUM BUC PRN (03:06)
[2024-05-02] MEDS ORDERED: BENZONATATE 200 MG CAPSULE PO PRN (03:06)
[2024-05-02] MEDS ORDERED: BISMUTH SUBSALICYLATE 524 MG/30 ML PO PRN (03:06)
[2024-05-02] MEDS ORDERED: BENZOCAINE/MENTHOL (CHLORASEPTIC ) LOZENGE MM PRN (03:06)
[2024-05-02 06:21] VITALS: RESP 17; TEMP 97.7
[2024-05-02] MEDS ORDERED: ALBUTEROL SO4 HFA INHALER IH PRN (06:43)
[2024-05-02 08:54] VITALS: BP 145/76; PULSE 67
[2024-05-02] MEDS: PENICILLIN G BENZATHINE 2,400,000 UNIT/4 ML PFS IM ONE (10:21)
[2024-05-02] MEDS: levETIRAcetam 500 MG TABLET (FP) PO SCH (10:22)
[2024-05-02] MEDS: BICTEGRAV/EMTRICIT/TENOFOV (BIKTARVY) 50-200-25 MG TABLET PO SCH (10:22)
[2024-05-02] MEDS: PRENATAL VITAMINS W/ FOLIC ACID TABLET (FP) PO SCH (10:22)
[2024-05-02] MEDS: BUDESONIDE/FORMETEROL FUMARATE 80/4.5 mcg INHALER IH SCH (10:22)
[2024-05-02] MEDS: NICOTINE 21 MG/24 HOURS TOPICAL PATCH TD SCH (10:22)
[2024-05-02] MEDS ORDERED: MELATONIN 5 MG TABLETS PO SCH (22:00)
[2024-05-02] MEDS ORDERED: THIAMINE 100 MG TABLET PO SCH (22:00)
== END 2024-05-02 10:39 | disposition home or self-care (01) | DRG 773 ==
LOC: YASAS 00:50 → Y3N 03:38
PROVIDERS: ADMIT Allergy & Immunology; ATTEND Allergy & Immunology
PROC: HZ2ZZZZ Detoxification Services for Substance Abuse Treatment (ICD-10-PCS; principal; 2024-05-02)
DX: F11.20 Opioid dependence, uncomplicated (principal); F14.20 Cocaine dependence, uncomplicated; F17.210 Nicotine dependence, cigarettes, uncomplicated; F31.9 Bipolar disorder, unspecified; F41.9 Anxiety disorder, unspecified; F19.24 Other psychoactive substance dependence with psychoactive substance-induced mood disorder; B20 Human immunodeficiency virus [HIV] disease; R56.1 Post traumatic seizures; J45.20 Mild intermittent asthma, uncomplicated; Z86.19 Personal history of other infectious and parasitic diseases; Z79.899 Other long term (current) drug therapy; Z59.00 Homelessness unspecified; Z88.2 Allergy status to sulfonamides
CPT/HCPCS: 80305; 80307

== ENCOUNTER 2024-05-22 00:46 | Emergency (ER) | payer SELFPAY ==
[2024-05-22 01:01] VITALS: PULSE 51; BMI 20.9
[2024-05-22] MEDS ORDERED: levETIRAcetam 500 MG/5 ML INJECTION VIAL IVPB ONE (02:26)
[2024-05-22] MEDS: levETIRAcetam 500 MG/5 ML INJECTION VIAL IVPB ONE (02:35)
[2024-05-22 02:44] LABS: BASO % 1.2 % (0-2.0); EOS % 4.1 % (0-4.5); HEMATOCRIT 35.8 % (35.4-49); HEMOGLOBIN 12.2 GM/dL (11.7-16.9); LYMPH % 41.7 % (8-40); MCH 31.7 pg (25.7-33.7); MEAN CELL VOLUME 93.2 fl (80-96); MEAN PLT VOLUME 7.2 fl (7.5-11.1); MONO % 14.4 % (3.8-10.2); NEUT % 38.6 % (42.8-82.8); PLATELET COUNT 293 10^3/uL (134-434); RBC 3.84 M/mm3 (4.00-5.60); RDW 15.9 % (11.9-15.9); WHITE BLOOD COUNT 2.5 K/mm3 (4.0-10.0)
[2024-05-22 03:09] LABS: POTASSIUM 4.4 mmol/L (3.5-5.1)
[2024-05-22 03:11] LABS: ALBUMIN 3.4 g/dl (3.4-5.0); BLOOD UREA NITROGEN 19.7 mg/dL (7-18); CALCIUM 8.5 mg/dL (8.5-10.1); MAGNESIUM 2.1 mg/dL (1.8-2.4)
[2024-05-22 03:16] LABS: BILIRUBIN,TOTAL 0.4 mg/dL (0.2-1); TOT PROT 7.3 g/dl (6.4-8.2)
[2024-05-22 06:13] VITALS: BP 124/70; RESP 17; TEMP 97.6
== END 2024-05-22 06:53 | disposition home or self-care (01) ==
LOC: JER 00:46
PROC: 3E033GC Introduction of Other Therapeutic Substance into Peripheral Vein, Percutaneous Approach (ICD-10-PCS; principal; 2024-05-22)
DX: G40.909 Epilepsy, unspecified, not intractable, without status epilepticus (principal); R51.9 Headache, unspecified; R53.81 Other malaise; K59.00 Constipation, unspecified; R05.9 Cough, unspecified; R53.1 Weakness; M54.2 Cervicalgia; R10.31 Right lower quadrant pain; B20 Human immunodeficiency virus [HIV] disease; Z20.822 Contact with and (suspected) exposure to COVID-19
CPT/HCPCS: 0241U-QW; 36415; 70450-TC; 71045-TC-FY; 72125-TC; 74177-TC; 80053; 83735; 85025; 87536; 93005; 93010; 99285-25; Q9967

== ENCOUNTER 2024-05-22 11:11 | Emergency (ER) | payer SELFPAY ==
[2024-05-22] MEDS ORDERED: levETIRAcetam 500 MG TABLET (FP) PO ONE (11:50)
[2024-05-22] MEDS ORDERED: diphenhydrAMINE HCL 25 MG CAPSULE (FP) PO ONE (11:54)
[2024-05-22 11:55] VITALS: BP 150/90; PULSE 106; RESP 26; TEMP 98.3; BMI 25.1
== END 2024-05-22 12:13 | disposition left against medical advice (07) ==
LOC: JER 11:11
DX: G40.909 Epilepsy, unspecified, not intractable, without status epilepticus (principal); F11.90 Opioid use, unspecified, uncomplicated; F14.90 Cocaine use, unspecified, uncomplicated; L50.9 Urticaria, unspecified; Z76.0 Encounter for issue of repeat prescription
CPT/HCPCS: 93005; 93010; 99283-25

== ENCOUNTER 2024-06-03 08:47 | Inpatient (IN) | payer OTHER ==
[2024-06-03 09:33] VITALS: BMI 22.3
[2024-06-03] MEDS ORDERED: ACETAMINOPHEN 325 MG TABLET (FP) PO PRN (09:51)
[2024-06-03] MEDS ORDERED: IBUPROFEN 400 MG TABLET (FP) PO PRN (09:51)
[2024-06-03] MEDS ORDERED: LOPERAMIDE HCL 2 MG CAPSULE PO PRN (09:51)
[2024-06-03] MEDS ORDERED: NALOXONE (NARCAN) HCL 4 MG/0.1 ML SPRAY NS PRN (09:51)
[2024-06-03] MEDS ORDERED: POLYETHYLENE GLYCOL (HEALTHYLAX) 3350 17 GM PACKET PO PRN (09:51)
[2024-06-03] MEDS ORDERED: BISMUTH SUBSALICYLATE 262 MG/15 ML BTL PO PRN (09:51)
[2024-06-03] MEDS ORDERED: DICYCLOMINE HCL 10 MG CAPSULE PO PRN (09:51)
[2024-06-03] MEDS ORDERED: BENZOCAINE/MENTHOL (CHLORASEPTIC ) LOZENGE MM PRN (09:51)
[2024-06-03] MEDS ORDERED: BENZONATATE 200 MG CAPSULE PO PRN (09:51)
[2024-06-03] MEDS ORDERED: guaiFENesin 600 MG TABLET.ER (FP) PO PRN (09:51)
[2024-06-03] MEDS ORDERED: MAGNESIUM HYDROX 2400MG/30ML ORAL SUSPENSION 30 ML CUP PO PRN (09:51)
[2024-06-03] MEDS ORDERED: NALOXONE HCL 0.4 MG/ML VIAL IM PRN (09:51)
[2024-06-03] MEDS ORDERED: MAG HYDROX/AL HYDROX/SIMETH 30 ML UNIT-DOSE CUP PO PRN (09:51)
[2024-06-03] MEDS ORDERED: methaDONE HCL 10 MG TABLET (FOR DETOX USE ONLY) ONE (10:29)
[2024-06-03] MEDS ORDERED: cloNIDine HCL 0.1 MG TABLET ONE (10:30)
[2024-06-03] MEDS ORDERED: PRENATAL VITAMINS W/ FOLIC ACID TABLET (FP) PO ONE (10:30)
[2024-06-03] MEDS ORDERED: NICOTINE 14 MG/24 HOURS TOPICAL PATCH TD ONE (10:30)
[2024-06-03] MEDS: PRENATAL VITAMINS W/ FOLIC ACID TABLET (FP) PO SCH (10:33)
[2024-06-03] MEDS: cloNIDine HCL 0.1 MG TABLET PO SCH (10:33)
[2024-06-03] MEDS: methaDONE HCL 10 MG TABLET PO ONE (10:33)
[2024-06-03] MEDS: NICOTINE 14 MG/24 HOURS TOPICAL PATCH TD SCH (10:33)
[2024-06-03] MEDS ORDERED: methaDONE HCL 10 MG TABLET PO PRN (11:53)
[2024-06-03] MEDS: hydrOXYzine PAMOATE 25 MG CAPSULE (FP) PO PRN (13:07)
[2024-06-03] MEDS ORDERED: ALBUTEROL SO4 HFA INHALER IH ONE (13:53)
[2024-06-03] MEDS: METHOCARBAMOL 500 MG TABLET PO PRN (13:53)
[2024-06-03] MEDS ORDERED: ALBUTEROL SO4 HFA INHALER IH PRN (14:00)
[2024-06-03] MEDS: LORATADINE 10 MG TABLET PO SCH (14:04)
[2024-06-03] MEDS: ALBUTEROL SO4 HFA INHALER IH PRN (14:27)
[2024-06-03] MEDS: IBUPROFEN 600 MG TABLET (FP) PO PRN (17:54)
[2024-06-03] MEDS: NICOTINE POLACRILEX 2 MG GUM BUC PRN (20:37)
[2024-06-03] MEDS: BUDESONIDE/FORMETEROL FUMARATE 80/4.5 mcg INHALER IH SCH (22:11)
[2024-06-03] MEDS: MELATONIN 5 MG TABLETS PO SCH (22:12)
[2024-06-03] MEDS: levETIRAcetam 500 MG TABLET (FP) PO SCH (22:13)
[2024-06-03] MEDS: THIAMINE 100 MG TABLET PO SCH (23:13)
[2024-06-03] MEDS: diphenhydrAMINE HCL 25 MG CAPSULE (FP) PO ONE (23:13)
[2024-06-04] MEDS: BICTEGRAV/EMTRICIT/TENOFOV (BIKTARVY) 50-200-25 MG TABLET PO SCH (07:29)
[2024-06-04] MEDS: PRENATAL VITAMINS W/ FOLIC ACID TABLET (FP) PO SCH (09:34)
[2024-06-04] MEDS: methaDONE 40 MG, methaDONE 10 MG PO ONE (09:34)
[2024-06-04] MEDS: SUMAtriptan SUCCINATE 25 MG TABLET PO PRN (11:21)
[2024-06-04 12:06] LABS: POTASSIUM 4.5 mmol/L (3.5-5.1)
[2024-06-04 12:13] LABS: HEMATOCRIT 35.9 % (35.4-49); HEMOGLOBIN 12.3 GM/dL (11.7-16.9); MCH 32.7 pg (25.7-33.7); MCHC 34.2 g/dl (32.0-35.9); MEAN CELL VOLUME 95.4 fl (80-96); MEAN PLT VOLUME 7.3 fl (7.5-11.1); PLATELET COUNT 336 10^3/uL (134-434); RBC 3.76 M/mm3 (4.00-5.60); RDW 16.2 % (11.9-15.9); WHITE BLOOD COUNT 4.9 K/mm3 (4.0-10.0)
[2024-06-04 12:18] LABS: ALBUMIN 3.6 g/dl (3.4-5.0); CALCIUM 8.6 mg/dL (8.5-10.1)
[2024-06-04 12:19] LABS: CREATININE 0.9 mg/dL (0.55-1.3)
[2024-06-04 12:21] LABS: BILIRUBIN,TOTAL 0.3 mg/dL (0.2-1); TOT PROT 7.5 g/dl (6.4-8.2)
[2024-06-04] MEDS: diphenhydrAMINE HCL 25 MG CAPSULE (FP) PO ONE (20:47)
[2024-06-04] MEDS: MELATONIN 5 MG TABLETS PO ONE (22:16)
[2024-06-05] MEDS: ONDANSETRON *ODT* 4 MG TABLET SL PRN (02:15)
[2024-06-05] MEDS: cloNIDine HCL 0.1 MG TABLET PO PRN (03:37)
[2024-06-05] MEDS: SUMAtriptan SUCCINATE 50 MG TABLET PO ONE (09:25)
[2024-06-05] MEDS: methaDONE 40 MG, methaDONE 20 MG PO ONE (09:26)
[2024-06-05] MEDS: ALBUTEROL SO4 HFA INHALER IH PRN (09:27)
[2024-06-05 13:21] VITALS: BP 113/74
[2024-06-05 16:51] VITALS: PULSE 78; RESP 18; TEMP 97.3
[2024-06-06] MEDS ORDERED: methaDONE 40 MG, methaDONE 30 MG PO ONE (10:00)
[2024-06-07] MEDS ORDERED: methaDONE HCL 40 MG DISPERSABLE TABLET PO ONE (10:00)
[2024-06-08] MEDS ORDERED: methaDONE 80 MG, methaDONE 10 MG PO ONE (10:00)
== END 2024-06-05 16:52 | disposition left against medical advice (07) | DRG 770 ==
LOC: YASAS 08:47 → Y3N 10:58
PROVIDERS: ADMIT Allergy & Immunology; ATTEND Surgery
PROC: HZ2ZZZZ Detoxification Services for Substance Abuse Treatment (ICD-10-PCS; principal; 2024-06-03)
DX: F11.23 Opioid dependence with withdrawal (principal); F14.20 Cocaine dependence, uncomplicated; F17.210 Nicotine dependence, cigarettes, uncomplicated; F31.9 Bipolar disorder, unspecified; F25.9 Schizoaffective disorder, unspecified; B20 Human immunodeficiency virus [HIV] disease; E78.5 Hyperlipidemia, unspecified; G40.909 Epilepsy, unspecified, not intractable, without status epilepticus; I10 Essential (primary) hypertension; J45.20 Mild intermittent asthma, uncomplicated; Z62.810 Personal history of physical and sexual abuse in childhood; Z56.0 Unemployment, unspecified; Z59.01 Sheltered homelessness; Z88.2 Allergy status to sulfonamides; Z79.899 Other long term (current) drug therapy; Z86.59 Personal history of other mental and behavioral disorders
CPT/HCPCS: 36415; 80053; 80177; 80305; 85027; 86593; 86780; 93005; 93010; Q0162

== ENCOUNTER 2024-06-24 07:04 | Observation (INO) | payer OTHER ==
[2024-06-24 08:36] LABS: BASO % 0.9 % (0-2.0); EOS % 4.3 % (0-4.5); HEMATOCRIT 33.5 % (35.4-49); HEMOGLOBIN 11.6 GM/dL (11.7-16.9); LYMPH % 29.2 % (8-40); MCH 32.5 pg (25.7-33.7); MCHC 34.6 g/dl (32.0-35.9); MEAN CELL VOLUME 93.8 fl (80-96); MEAN PLT VOLUME 6.4 fl (7.5-11.1); MONO % 11.1 % (3.8-10.2); NEUT % 54.5 % (42.8-82.8); PLATELET COUNT 500 10^3/uL (134-434); RBC 3.58 M/mm3 (4.00-5.60); RDW 14.9 % (11.9-15.9); WHITE BLOOD COUNT 5.7 K/mm3 (4.0-10.0)
[2024-06-24 08:37] LABS: VENOUS BASE EXCESS 2.3 mmol/L (-2-2); VENOUS O2 SATURATION 88.3 % (70-80); VENOUS PCO2 48.2 mmHg (38-52); VENOUS PH 7.383 (7.310-7.410)
[2024-06-24 08:41] LABS: INR 0.93 (0.83-1.09); PROTHROMBIN TIME (PATIENT) 10.5 SEC (9.7-13.0)
[2024-06-24 08:43] LABS: ACTIVATED PTT 32.7 SECONDS (25.2-36.5)
[2024-06-24] MEDS ORDERED: ACETAMINOPHEN INJECTION 100 ML IVPB ONE (08:52)
[2024-06-24 08:53] LABS: POTASSIUM 3.8 mmol/L (3.5-5.1)
[2024-06-24 08:55] LABS: ALBUMIN 3.2 g/dl (3.4-5.0); BLOOD UREA NITROGEN 31.4 mg/dL (7-18); CALCIUM 9.2 mg/dL (8.5-10.1)
[2024-06-24] MEDS: ACETAMINOPHEN 1000 MG/100 ML BAG IVPB ONE (08:58)
[2024-06-24 08:59] LABS: CREATININE 1.1 mg/dL (0.55-1.3)
[2024-06-24 09:00] LABS: BILIRUBIN,TOTAL 0.2 mg/dL (0.2-1); TOT PROT 7.3 g/dl (6.4-8.2)
[2024-06-24 09:45] LABS: PH,URINE 5.5 (5.0-8.0); URINE APPEARANCE CLEAR; URINE BILIRUBIN NEGATIVE (NEGATIVE); URINE COLOR YELLOW; URINE GLUCOSE (UA) NEGATIVE (NEGATIVE); URINE KETONE NEGATIVE (NEGATIVE); URINE LEUK ESTERASE NEGATIVE (NEGATIVE); URINE NITRITE NEGATIVE (NEGATIVE); URINE PROTEIN NEGATIVE (NEGATIVE); URINE UROBILINOGEN 0.2 mg/dL (0.2-1.0)
[2024-06-24] MEDS ORDERED: PREGABALIN 75 MG CAPSULE PO PRN ×2 (10:58→11:48)
[2024-06-24] MEDS ORDERED: VANCOMYCIN 1,000 MG in DEXTROSE 5%-WATER - 250 ML IVPB SCH (11:00)
[2024-06-24] MEDS ORDERED: PREGABALIN 50 MG CAPSULE ONE (11:50)
[2024-06-24] MEDS ORDERED: VANCOMYCIN 1 GRAM (PRE-DOCKED) 1,000 MG/250 ML BAG IVPB ONE (11:51)
[2024-06-24] MEDS ORDERED: PREGABALIN 100 MG CAPSULE ONE (11:51)
[2024-06-24] MEDS: PREGABALIN 50 MG CAPSULE PO ONE (12:05)
[2024-06-24] MEDS: ACYCLOVIR INJECTION 750 MG in DEXTROSE 5%-WATER - 250 ML IVPB SCH (12:05)
[2024-06-24] MEDS: SODIUM CHLORIDE 1,000 ML IV SCH (13:04)
[2024-06-24] MEDS: VANCOMYCIN 1 GRAM (PRE-DOCKED) 1,000 MG/250 ML BAG IVPB SCH ×2 (13:05→22:15)
[2024-06-24] MEDS: BICTEGRAV/EMTRICIT/TENOFOV (BIKTARVY) 50-200-25 MG TABLET PO SCH (15:36)
[2024-06-24] MEDS: levETIRAcetam 500 MG TABLET (FP) PO SCH (21:48)
[2024-06-24] MEDS: PREGABALIN 75 MG CAPSULE PO SCH (21:48)
[2024-06-24] MEDS ORDERED: PREGABALIN 75 MG CAPSULE PO SCH (22:00)
[2024-06-24] MEDS: BUDESONIDE/FORMETEROL FUMARATE 80/4.5 mcg INHALER IH SCH (22:01)
[2024-06-24] MEDS: IBUPROFEN 400 MG TABLET (FP) PO ONE (22:37)
[2024-06-25 00:16] VITALS: BMI 24.3
[2024-06-25] MEDS: VANCOMYCIN/WATER FOR INJ (PEG) 1,000 MG/200 ML BAG IVPB SCH (01:56)
[2024-06-25] MEDS ORDERED: methaDONE HCL 10 MG TABLET PO SCH (06:00)
[2024-06-25 08:44] LABS: BASO % 1.5 % (0-2.0); EOS % 6.7 % (0-4.5); HEMATOCRIT 36.5 % (35.4-49); HEMOGLOBIN 12.6 GM/dL (11.7-16.9); LYMPH % 43.3 % (8-40); MCH 32.4 pg (25.7-33.7); MCHC 34.6 g/dl (32.0-35.9); MEAN CELL VOLUME 93.8 fl (80-96); MEAN PLT VOLUME 6.3 fl (7.5-11.1); NEUT % 33.5 % (42.8-82.8); PLATELET COUNT 493 10^3/uL (134-434); RBC 3.89 M/mm3 (4.00-5.60)
[2024-06-25 09:08] LABS: POTASSIUM 4.4 mmol/L (3.5-5.1)
[2024-06-25 09:13] LABS: ALBUMIN 2.8 g/dl (3.4-5.0)
[2024-06-25 09:14] LABS: BLOOD UREA NITROGEN 20.2 mg/dL (7-18); MAGNESIUM 2.2 mg/dL (1.8-2.4)
[2024-06-25 09:17] LABS: BILIRUBIN,TOTAL 0.3 mg/dL (0.2-1)
[2024-06-25 09:18] LABS: TOT PROT 6.9 g/dl (6.4-8.2)
[2024-06-25] MEDS: methaDONE 40 MG, methaDONE 10 MG PO SCH (10:43)
[2024-06-25] MEDS: PRENATAL VITAMINS W/ FOLIC ACID TABLET (FP) PO SCH (10:45)
[2024-06-25] MEDS: ENOXAPARIN NA (PORCINE) 40 MG/0.4 ML DISP.SYRIN SQ SCH (10:45)
[2024-06-25] MEDS: ACETAMINOPHEN 1000 MG/100 ML BAG IVPB PRN (11:48)
[2024-06-25] MEDS: BACITRACIN/POLYMYXIN B SULFATE 15 GM TUBE TP SCH (14:03)
[2024-06-25 15:40] VITALS: RESP 18
[2024-06-25] MEDS: PREGABALIN 100 MG CAPSULE PO ONE (20:56)
[2024-06-26 13:24] VITALS: BP 126/81; PULSE 73; TEMP 98.8
== END 2024-06-26 14:13 | disposition left against medical advice (07) ==
LOC: JER 07:04 → JERBED 09:59 → UNDOADMOB 09:59 → INTOOBSV 09:59 → JERBED 14:45 → J8W 19:11
PROVIDERS: ADMIT Internal Medicine
PROC: 3E03329 Introduction of Other Anti-infective into Peripheral Vein, Percutaneous Approach (ICD-10-PCS; principal; 2024-06-24)
PROC: 3E0337Z Introduction of Electrolytic and Water Balance Substance into Peripheral Vein, Percutaneous Approach (ICD-10-PCS; 2024-06-24)
PROC: 3E033NZ Introduction of Analgesics, Hypnotics, Sedatives into Peripheral Vein, Percutaneous Approach (ICD-10-PCS; 2024-06-24)
DX: B02.30 Zoster ocular disease, unspecified (principal); B95.8 Unspecified staphylococcus as the cause of diseases classified elsewhere; I33.0 Acute and subacute infective endocarditis; I05.9 Rheumatic mitral valve disease, unspecified; G40.909 Epilepsy, unspecified, not intractable, without status epilepticus; F31.9 Bipolar disorder, unspecified; F41.9 Anxiety disorder, unspecified; B20 Human immunodeficiency virus [HIV] disease; F19.90 Other psychoactive substance use, unspecified, uncomplicated; J45.909 Unspecified asthma, uncomplicated; E78.5 Hyperlipidemia, unspecified; Z86.19 Personal history of other infectious and parasitic diseases; F14.90 Cocaine use, unspecified, uncomplicated; G89.29 Other chronic pain; M54.50 Low back pain, unspecified; F17.210 Nicotine dependence, cigarettes, uncomplicated; Z88.2 Allergy status to sulfonamides; Z88.8 Allergy status to other drugs, medicaments and biological substances
CPT/HCPCS: 0241U-QW; 36415; 71045-TC-FY; 80053; 81003; 82803; 83605; 83735; 84100; 84484; 85025; 85610; 85730; 86359; 86360; 86850; 86900; 86901; 87040; 87086; 93005; 93010; 96361; 96365; 96375; 96376; 99285-25; G0378; J0131

== ENCOUNTER 2024-06-27 02:20 | Observation (INO) | payer OTHER ==
[2024-06-27 02:25] VITALS: RESP 18
[2024-06-27] MEDS ORDERED: ACYCLOVIR 200 MG CAPSULE ONE (03:48)
[2024-06-27] MEDS: VANCOMYCIN HCL 1,500 MG in DEXTROSE 5%-WATER - 500 ML IVPB ONE (04:24)
[2024-06-27] MEDS: ACYCLOVIR 400 MG TABLET PO ONE (04:24)
[2024-06-27 05:15] LABS: BASO % 0.9 % (0-2.0); EOS % 1.5 % (0-4.5); HEMATOCRIT 36.3 % (35.4-49); HEMOGLOBIN 12.6 GM/dL (11.7-16.9); LYMPH % 28.8 % (8-40); MCH 32.6 pg (25.7-33.7); MCHC 34.6 g/dl (32.0-35.9); MEAN CELL VOLUME 94.2 fl (80-96); MEAN PLT VOLUME 6.7 fl (7.5-11.1); MONO % 10.2 % (3.8-10.2); NEUT % 58.6 % (42.8-82.8); PLATELET COUNT 525 10^3/uL (134-434); RBC 3.85 M/mm3 (4.00-5.60); RDW 14.7 % (11.9-15.9); WHITE BLOOD COUNT 5.6 K/mm3 (4.0-10.0)
[2024-06-27 05:18] LABS: BLOOD UREA NITROGEN 22.4 mg/dL (7-18); CALCIUM 9.8 mg/dL (8.5-10.1)
[2024-06-27 05:23] LABS: BILIRUBIN,TOTAL 0.4 mg/dL (0.2-1); TOT PROT 8.2 g/dl (6.4-8.2)
[2024-06-27 05:27] LABS: ALBUMIN 3.8 g/dl (3.4-5.0)
[2024-06-27] MEDS: VANCOMYCIN PREMIX 1.5 GM 1,500 MG/300 ML BAG IVPB ONE (06:28)
[2024-06-27] MEDS ORDERED: PREGABALIN 75 MG CAPSULE PO ONE (08:56)
[2024-06-27] MEDS: levETIRAcetam 500 MG TABLET (FP) PO SCH (09:59)
[2024-06-27] MEDS: PREGABALIN 50 MG, PREGABALIN 25 MG PO ONE (10:00)
[2024-06-27] MEDS: ENOXAPARIN NA (PORCINE) 40 MG/0.4 ML DISP.SYRIN SQ SCH (10:00)
[2024-06-27] MEDS: ALBUTEROL SO4 HFA INHALER IH PRN (10:00)
[2024-06-27] MEDS: BACITRACIN/POLYMYXIN B SULFATE 15 GM TUBE TP SCH (12:47)
[2024-06-27] MEDS: valACYclovir HCL 500 MG TABLET (FP) PO SCH (12:48)
[2024-06-27] MEDS: BUDESONIDE/FORMETEROL FUMARATE 80/4.5 mcg INHALER IH SCH (12:48)
[2024-06-27] MEDS: PRENATAL VITAMINS W/ FOLIC ACID TABLET (FP) PO SCH (13:37)
[2024-06-27] MEDS ORDERED: PREGABALIN 75 MG CAPSULE PO SCH (14:00)
[2024-06-27] MEDS: PREGABALIN 75 MG CAPSULE PO SCH (15:12)
[2024-06-27 17:02] VITALS: BMI 24.5
[2024-06-27] MEDS: VANCOMYCIN PREMIX 1.5 GM 1,500 MG/300 ML BAG IVPB SCH (18:11)
[2024-06-27] MEDS: NICOTINE 21 MG/24 HOURS TOPICAL PATCH TD SCH (18:11)
[2024-06-27] MEDS: ACETAMINOPHEN 1000 MG/100 ML BAG IVPB ONE (21:30)
[2024-06-27] MEDS: MELATONIN 5 MG TABLETS PO ONE (23:53)
[2024-06-28] MEDS ORDERED: methaDONE HCL 10 MG TABLET PO SCH (06:00)
[2024-06-28 07:56] LABS: BASO % 1.5 % (0-2.0); EOS % 3.2 % (0-4.5); HEMATOCRIT 38.5 % (35.4-49); HEMOGLOBIN 13.3 GM/dL (11.7-16.9); LYMPH % 32.5 % (8-40); MCH 32.6 pg (25.7-33.7); MCHC 34.6 g/dl (32.0-35.9); MEAN CELL VOLUME 94.3 fl (80-96); MEAN PLT VOLUME 6.4 fl (7.5-11.1); MONO % 14.2 % (3.8-10.2); NEUT % 48.6 % (42.8-82.8); PLATELET COUNT 497 10^3/uL (134-434); RBC 4.09 M/mm3 (4.00-5.60); RDW 14.8 % (11.9-15.9); WHITE BLOOD COUNT 3.6 K/mm3 (4.0-10.0)
[2024-06-28 08:19] LABS: ALBUMIN 3.5 g/dl (3.4-5.0); BLOOD UREA NITROGEN 24.4 mg/dL (7-18); CALCIUM 9.8 mg/dL (8.5-10.1); MAGNESIUM 2.1 mg/dL (1.8-2.4); POTASSIUM 4.2 mmol/L (3.5-5.1)
[2024-06-28 08:26] LABS: BILIRUBIN,TOTAL 0.5 mg/dL (0.2-1); CREATININE 1.1 mg/dL (0.55-1.3); PHOSPHOROUS 4.2 mg/dL (2.5-4.9); TOT PROT 8.1 g/dl (6.4-8.2)
[2024-06-28] MEDS: BICTEGRAV/EMTRICIT/TENOFOV (BIKTARVY) 50-200-25 MG TABLET PO SCH (09:09)
[2024-06-28] MEDS: methaDONE 40 MG, methaDONE 10 MG PO SCH (11:34)
[2024-06-28] MEDS ORDERED: ACETAMINOPHEN 500 MG TABLET (FP) PO PRN (15:02)
[2024-06-28] MEDS ORDERED: OCULAR LUBRICANT OPHTHALMIC OINTMENT 7 GM TUBE OU PRN (15:03)
[2024-06-28] MEDS: KETOROLAC TROMETHAMINE 15 MG/ML VIAL IVPUSH PRN (15:29)
[2024-06-28 15:46] VITALS: BP 119/67; PULSE 75; TEMP 98.4
== END 2024-06-28 20:41 | disposition left against medical advice (07) ==
LOC: JER 02:20 → JERBED 08:30 → INTOOBSV 08:30 → UNDOADMOB 08:30 → JERBED 08:47 → J8W 09:41
PROVIDERS: ADMIT Internal Medicine; ATTEND Internal Medicine
DX: A49.02 Methicillin resistant Staphylococcus aureus infection, unspecified site (principal); B02.30 Zoster ocular disease, unspecified; B20 Human immunodeficiency virus [HIV] disease; F11.90 Opioid use, unspecified, uncomplicated; F14.90 Cocaine use, unspecified, uncomplicated; E78.5 Hyperlipidemia, unspecified; F41.8 Other specified anxiety disorders; G89.29 Other chronic pain; M54.50 Low back pain, unspecified; R56.9 Unspecified convulsions; H54.40 Blindness, one eye, unspecified eye; F17.210 Nicotine dependence, cigarettes, uncomplicated; Z88.2 Allergy status to sulfonamides; Z88.8 Allergy status to other drugs, medicaments and biological substances; Z91.148 Patient's other noncompliance with medication regimen for other reason
CPT/HCPCS: 36415; 80053; 83735; 84100; 85025; 87040; 99285-25; G0378; G0480; J0131

== ENCOUNTER 2024-07-11 07:52 | Inpatient (IN) | payer OTHER ==
[2024-07-11 08:05] VITALS: BP 102/64; PULSE 105; RESP 18; TEMP 98.6; BMI 23.7
[2024-07-11] MEDS ORDERED: ACETAMINOPHEN INJECTION 100 ML ONE (09:23)
[2024-07-11 09:25] LABS: BASO % 0.6 % (0-2.0); EOS % 2.4 % (0-4.5); HEMOGLOBIN 12.4 GM/dL (11.7-16.9); LYMPH % 17.6 % (8-40); MCH 32.7 pg (25.7-33.7); MCHC 34.4 g/dl (32.0-35.9); MEAN CELL VOLUME 95.1 fl (80-96); MEAN PLT VOLUME 6.8 fl (7.5-11.1); MONO % 12.1 % (3.8-10.2); NEUT % 67.3 % (42.8-82.8); PLATELET COUNT 321 10^3/uL (134-434); RBC 3.79 M/mm3 (4.00-5.60); RDW 15.4 % (11.9-15.9); WHITE BLOOD COUNT 5.1 K/mm3 (4.0-10.0)
[2024-07-11 09:32] LABS: INR 1.08 (0.83-1.09); PROTHROMBIN TIME (PATIENT) 12.4 SEC (9.7-13.0)
[2024-07-11 09:34] LABS: ACTIVATED PTT 29.1 SECONDS (25.2-36.5)
[2024-07-11] MEDS: SODIUM CHLORIDE 0.9% 500 ML INFUS.BAG IV ONE ×2 (09:35→13:34)
[2024-07-11] MEDS: ACETAMINOPHEN 1000 MG/100 ML BAG IVPB ONE (09:35)
[2024-07-11 09:42] LABS: POTASSIUM 3.2 mmol/L (3.5-5.1)
[2024-07-11 09:44] LABS: CALCIUM 9.2 mg/dL (8.5-10.1)
[2024-07-11 09:45] LABS: ALBUMIN 3.7 g/dl (3.4-5.0); BLOOD UREA NITROGEN 38.9 mg/dL (7-18); MAGNESIUM 2.6 mg/dL (1.8-2.4)
[2024-07-11 09:49] LABS: BILIRUBIN,TOTAL 0.7 mg/dL (0.2-1)
[2024-07-11 09:50] LABS: TOT PROT 7.6 g/dl (6.4-8.2)
[2024-07-11 10:16] LABS: ERYTHROCYTE SEDIMENTATION RATE 21 mm/hr (0-10)
[2024-07-11] MEDS: VANCOMYCIN 1,000 MG in DEXTROSE 5%-WATER - 250 ML IVPB ONE (11:06)
[2024-07-11] MEDS ORDERED: ALBUTEROL SO4 HFA INHALER IH PRN (11:42)
[2024-07-11] MEDS ORDERED: HEPARIN NA (PORCINE) 5,000 UNITS/ML 1ML VIAL ONE (13:26)
[2024-07-11] MEDS: HEPARIN NA (PORCINE) 5,000 UNITS/ML 1ML VIAL SQ SCH (13:35)
[2024-07-11] MEDS: POTASSIUM CHLORIDE ORAL LIQUID 20 MEQ/15 ML PO ONE (15:34)
[2024-07-11] MEDS ORDERED: levETIRAcetam 500 MG TABLET (FP) PO SCH (22:00)
[2024-07-11] MEDS ORDERED: VANCOMYCIN/WATER FOR INJ (PEG) 1,000 MG/200 ML BAG IVPB SCH (22:00)
[2024-07-11] MEDS ORDERED: VANCOMYCIN 1,000 MG in DEXTROSE 5%-WATER - 250 ML IVPB SCH (22:00)
[2024-07-11] MEDS ORDERED: BUDESONIDE/FORMETEROL FUMARATE 80/4.5 mcg INHALER IH SCH (22:00)
[2024-07-12] MEDS ORDERED: methaDONE 40 MG, methaDONE 10 MG PO SCH (10:00)
[2024-07-12] MEDS ORDERED: NICOTINE 21 MG/24 HOURS TOPICAL PATCH TD SCH (10:00)
[2024-07-12] MEDS ORDERED: BICTEGRAV/EMTRICIT/TENOFOV (BIKTARVY) 50-200-25 MG TABLET PO SCH (10:00)
== END 2024-07-11 15:38 | disposition home or self-care (01) | DRG 890 ==
LOC: JER 07:52 → JERBED 11:15
DX: I38 Endocarditis, valve unspecified (principal); B20 Human immunodeficiency virus [HIV] disease; N17.9 Acute kidney failure, unspecified; B95.62 Methicillin resistant Staphylococcus aureus infection as the cause of diseases classified elsewhere; E78.5 Hyperlipidemia, unspecified; H40.9 Unspecified glaucoma; J45.909 Unspecified asthma, uncomplicated; F11.20 Opioid dependence, uncomplicated; F41.8 Other specified anxiety disorders; R78.81 Bacteremia; R64 Cachexia; Z68.23 Body mass index [BMI] 23.0-23.9, adult; M54.50 Low back pain, unspecified; H54.40 Blindness, one eye, unspecified eye; G40.909 Epilepsy, unspecified, not intractable, without status epilepticus
CPT/HCPCS: 0241U-QW; 36415; 71045-TC-FY; 80053; 83735; 84439; 84443; 84484; 85025; 85610; 85651; 85730; 86140; 87040; 99285-25; J0131

== ENCOUNTER 2024-07-20 03:02 | Observation (INO) | payer OTHER ==
[2024-07-20] MEDS ORDERED: ACETAMINOPHEN INJECTION 100 ML ONE (03:31)
[2024-07-20] MEDS: LACTATED RINGERS SOLUTION 1000 ML INFUS.BAG IV ONE (03:56)
[2024-07-20] MEDS: ACETAMINOPHEN 1000 MG/100 ML BAG IVPB ONE (03:56)
[2024-07-20 04:07] LABS: BASO % 0.8 % (0-2.0); EOS % 3.8 % (0-4.5); HEMATOCRIT 35.5 % (35.4-49); HEMOGLOBIN 12.4 GM/dL (11.7-16.9); LYMPH % 36.5 % (8-40); MCH 33.2 pg (25.7-33.7); MCHC 35.1 g/dl (32.0-35.9); MEAN CELL VOLUME 94.8 fl (80-96); MEAN PLT VOLUME 6.9 fl (7.5-11.1); MONO % 11.3 % (3.8-10.2); NEUT % 47.6 % (42.8-82.8); PLATELET COUNT 340 10^3/uL (134-434); RBC 3.74 M/mm3 (4.00-5.60); RDW 15.8 % (11.9-15.9); WHITE BLOOD COUNT 3.1 K/mm3 (4.0-10.0)
[2024-07-20 04:13] LABS: INR 0.95 (0.83-1.09); PROTHROMBIN TIME (PATIENT) 10.9 SEC (9.7-13.0)
[2024-07-20 04:16] LABS: ACTIVATED PTT 30.9 SECONDS (25.2-36.5)
[2024-07-20 04:20] LABS: CHLORIDE 104 mmol/L (98-107); POTASSIUM 3.6 mmol/L (3.5-5.1); SODIUM 140 mmol/L (136-145)
[2024-07-20 04:23] LABS: ALBUMIN 3.6 g/dl (3.4-5.0); ANION GAP 8 mmol/L (4-13); BLOOD UREA NITROGEN 19.6 mg/dL (7-18); CALCIUM 9.6 mg/dL (8.5-10.1); CO2 29 mmol/L (21-32); GLUCOSE,RANDOM 90 mg/dL (74-106); MAGNESIUM 2.2 mg/dL (1.8-2.4)
[2024-07-20 04:26] LABS: CREATININE 1.1 mg/dL (0.55-1.3); PHOSPHOROUS 2.9 mg/dL (2.5-4.9); SGOT/AST 23 U/L (15-37); SGPT/ALT 24 U/L (13-61)
[2024-07-20 04:27] LABS: TOT PROT 7.3 g/dl (6.4-8.2)
[2024-07-20 04:29] LABS: ALK PHOS 67 U/L (45-117); BILIRUBIN,TOTAL 0.7 mg/dL (0.2-1)
[2024-07-20] MEDS ORDERED: valACYclovir HCL 500 MG TABLET (FP) ONE (05:06)
[2024-07-20] MEDS: valACYclovir HCL 500 MG TABLET (FP) PO ONE (05:23)
[2024-07-20] MEDS: VANCOMYCIN HCL 1,500 MG in DEXTROSE 5%-WATER - 500 ML IVPB ONE (05:23)
[2024-07-20 06:28] LABS: BASO % 0.9 % (0-2.0); EOS % 5.2 % (0-4.5); HEMATOCRIT 36.2 % (35.4-49); HEMOGLOBIN 12.3 GM/dL (11.7-16.9); LYMPH % 40.8 % (8-40); MCH 32.4 pg (25.7-33.7); MEAN CELL VOLUME 95.4 fl (80-96); MEAN PLT VOLUME 6.6 fl (7.5-11.1); MONO % 12.3 % (3.8-10.2); NEUT % 40.8 % (42.8-82.8); PLATELET COUNT 336 10^3/uL (134-434); RBC 3.79 M/mm3 (4.00-5.60); RDW 15.6 % (11.9-15.9); WHITE BLOOD COUNT 3.6 K/mm3 (4.0-10.0)
[2024-07-20] MEDS ORDERED: PREGABALIN 75 MG CAPSULE PO SCH (06:30)
[2024-07-20] MEDS ORDERED: VANCOMYCIN HCL 1,500 MG in DEXTROSE 5%-WATER - 250 ML IVPB SCH (06:30)
[2024-07-20 06:45] LABS: POTASSIUM 4.5 mmol/L (3.5-5.1)
[2024-07-20 06:48] LABS: ALBUMIN 3.3 g/dl (3.4-5.0); BLOOD UREA NITROGEN 20.2 mg/dL (7-18); CALCIUM 9.2 mg/dL (8.5-10.1); MAGNESIUM 2.1 mg/dL (1.8-2.4)
[2024-07-20 06:51] LABS: PHOSPHOROUS 2.8 mg/dL (2.5-4.9)
[2024-07-20] MEDS ORDERED: PREGABALIN 50 MG CAPSULE ONE (06:51)
[2024-07-20] MEDS ORDERED: PREGABALIN 25 MG CAPSULE ONE (06:51)
[2024-07-20 06:53] LABS: BILIRUBIN,TOTAL 0.5 mg/dL (0.2-1); TOT PROT 6.9 g/dl (6.4-8.2)
[2024-07-20] MEDS ORDERED: ALBUTEROL SO4 HFA INHALER IH PRN (06:56)
[2024-07-20] MEDS: PREGABALIN 50 MG, PREGABALIN 25 MG PO SCH (07:06)
[2024-07-20 07:47] LABS: URINE AMPHETAMINES NEGATIVE (NEGATIVE); URINE BARBITURATES NEGATIVE (NEGATIVE); URINE BENZODIAZEPINES NEGATIVE (NEGATIVE)
[2024-07-20 07:49] LABS: COCAINE, UR POSITIVE (NEGATIVE); METHADONE, UR NEGATIVE (NEGATIVE); OPIATES, URI NEGATIVE (NEGATIVE); PHENCYCLIDINE,URINE NEGATIVE (NEGATIVE)
[2024-07-20 12:46] VITALS: BMI 23.1
[2024-07-20] MEDS: BUDESONIDE/FORMETEROL FUMARATE 80/4.5 mcg INHALER IH SCH (12:50)
[2024-07-20] MEDS: ENOXAPARIN NA (PORCINE) 40 MG/0.4 ML DISP.SYRIN SQ SCH (12:51)
[2024-07-20] MEDS: levETIRAcetam 500 MG TABLET (FP) PO SCH (12:51)
[2024-07-20] MEDS: BICTEGRAV/EMTRICIT/TENOFOV (BIKTARVY) 50-200-25 MG TABLET PO SCH (12:52)
[2024-07-20] MEDS: PREGABALIN 75 MG CAPSULE PO SCH (13:16)
[2024-07-20] MEDS: LORazepam 1 MG TABLET PO PRN (13:17)
[2024-07-20] MEDS: VANCOMYCIN PREMIX 1.5 GM 1,500 MG/300 ML BAG IVPB SCH (18:09)
[2024-07-20 22:34] VITALS: RESP 18
[2024-07-21] MEDS ORDERED: VANCOMYCIN HCL 1,500 MG in DEXTROSE 5%-WATER - 250 ML IVPB SCH (06:30)
[2024-07-21 09:29] VITALS: BP 132/85; PULSE 88; TEMP 98.4
== END 2024-07-21 12:33 | disposition left against medical advice (07) ==
LOC: JER 03:02 → JERBED 04:55 → INTOOBSV 04:55 → J7W 08:07
PROVIDERS: ADMIT Internal Medicine; ATTEND Nurse Practitioner Family
PROC: 3E033NZ Introduction of Analgesics, Hypnotics, Sedatives into Peripheral Vein, Percutaneous Approach (ICD-10-PCS; principal; 2024-07-20)
PROC: 3E03329 Introduction of Other Anti-infective into Peripheral Vein, Percutaneous Approach (ICD-10-PCS; 2024-07-20)
PROC: 3E0337Z Introduction of Electrolytic and Water Balance Substance into Peripheral Vein, Percutaneous Approach (ICD-10-PCS; 2024-07-20)
PROC: 3E0337Z Introduction of Electrolytic and Water Balance Substance into Peripheral Vein, Percutaneous Approach (ICD-10-PCS; 2024-07-20)
DX: I38 Endocarditis, valve unspecified (principal); B20 Human immunodeficiency virus [HIV] disease; F14.90 Cocaine use, unspecified, uncomplicated; B02.9 Zoster without complications; R53.1 Weakness; B02.29 Other postherpetic nervous system involvement; Z91.199 Patient's noncompliance with other medical treatment and regimen due to unspecified reason; A52.3 Neurosyphilis, unspecified; R56.9 Unspecified convulsions; H40.9 Unspecified glaucoma; M54.50 Low back pain, unspecified; S06.9XAA Unspecified intracranial injury with loss of consciousness status unknown, initial encounter; X58.XXXA Exposure to other specified factors, initial encounter; E78.5 Hyperlipidemia, unspecified; J45.909 Unspecified asthma, uncomplicated; F41.8 Other specified anxiety disorders; G89.29 Other chronic pain; Z88.2 Allergy status to sulfonamides; Z88.8 Allergy status to other drugs, medicaments and biological substances
CPT/HCPCS: 0241U-QW; 36415; 71045-TC-FY; 80053; 80177; 80307; 82550; 82553; 83735; 84100; 84484; 85025; 85610; 85730; 86359; 86360; 86593; 86780; 86850; 86900; 86901; 87040; 87536; 93005; 93010; 96365; 96366; 96375; 99285-25; G0378; J0131

== ENCOUNTER 2024-07-22 22:36 | Emergency (ER) | payer OTHER ==
[2024-07-22 22:46] VITALS: BP 129/84; PULSE 78; RESP 17; TEMP 98.8; BMI 24.0
[2024-07-23] MEDS ORDERED: DALBAVANCIN HCL 500 MG VIAL (RESTRICTED TO ID ONLY) IVPB ONE (00:03)
[2024-07-23 00:19] LABS: BASO % 1.2 % (0-2.0); EOS % 2.3 % (0-4.5); HEMATOCRIT 38.2 % (35.4-49); HEMOGLOBIN 13.2 GM/dL (11.7-16.9); LYMPH % 36.3 % (8-40); MCH 33.3 pg (25.7-33.7); MCHC 34.6 g/dl (32.0-35.9); MEAN CELL VOLUME 96.2 fl (80-96); MONO % 10.6 % (3.8-10.2); NEUT % 49.6 % (42.8-82.8); PLATELET COUNT 416 10^3/uL (134-434); RBC 3.97 M/mm3 (4.00-5.60); RDW 16.4 % (11.9-15.9); WHITE BLOOD COUNT 4.2 K/mm3 (4.0-10.0)
[2024-07-23 00:44] LABS: POTASSIUM 4.8 mmol/L (3.5-5.1)
[2024-07-23 00:46] LABS: CALCIUM 9.6 mg/dL (8.5-10.1)
[2024-07-23 00:47] LABS: ALBUMIN 3.9 g/dl (3.4-5.0); BLOOD UREA NITROGEN 27.4 mg/dL (7-18)
[2024-07-23 00:50] LABS: CREATININE 1.2 mg/dL (0.55-1.3)
[2024-07-23 00:52] LABS: BILIRUBIN,TOTAL 0.5 mg/dL (0.2-1); TOT PROT 8.2 g/dl (6.4-8.2)
[2024-07-23] MEDS: DALBAVANCIN HCL 1,500 MG in DEXTROSE 5%-WATER - 500 ML IVPB ONE (01:09)
== END 2024-07-23 05:54 | disposition home or self-care (01) ==
LOC: JER 22:36
DX: R53.1 Weakness (principal); R07.9 Chest pain, unspecified
CPT/HCPCS: 36415; 80053; 84484; 85025; 99284-25; J0875

== ENCOUNTER 2024-07-28 21:17 | Inpatient (IN) | payer OTHER ==
[2024-07-28 21:48] VITALS: BMI 22.6
[2024-07-28] MEDS ORDERED: ACETAMINOPHEN 325 MG TABLET (FP) PO PRN (22:54)
[2024-07-28] MEDS ORDERED: LOPERAMIDE HCL 2 MG CAPSULE PO PRN (22:54)
[2024-07-28] MEDS ORDERED: NALOXONE HCL 0.4 MG/ML VIAL IM PRN (22:54)
[2024-07-28] MEDS ORDERED: MAGNESIUM HYDROX 2400MG/30ML ORAL SUSPENSION 30 ML CUP PO PRN (22:54)
[2024-07-28] MEDS ORDERED: BENZOCAINE/MENTHOL (CHLORASEPTIC ) LOZENGE MM PRN (22:54)
[2024-07-28] MEDS ORDERED: NALOXONE (NARCAN) HCL 4 MG/0.1 ML SPRAY NS PRN (22:54)
[2024-07-28] MEDS ORDERED: BENZONATATE 200 MG CAPSULE PO PRN (22:54)
[2024-07-28] MEDS ORDERED: IBUPROFEN 400 MG TABLET (FP) PO PRN (22:54)
[2024-07-28] MEDS ORDERED: NICOTINE POLACRILEX 2 MG LOZENGE BC PRN (22:54)
[2024-07-28] MEDS ORDERED: ONDANSETRON *ODT* 4 MG TABLET SL PRN (22:54)
[2024-07-28] MEDS ORDERED: guaiFENesin 600 MG TABLET.ER (FP) PO PRN (22:54)
[2024-07-28] MEDS ORDERED: BISMUTH SUBSALICYLATE 524 MG/30 ML PO PRN (22:54)
[2024-07-28] MEDS ORDERED: POLYETHYLENE GLYCOL (HEALTHYLAX) 3350 17 GM PACKET PO PRN (22:54)
[2024-07-28] MEDS ORDERED: DICYCLOMINE HCL 10 MG CAPSULE PO PRN (22:54)
[2024-07-28] MEDS ORDERED: MAG HYDROX/AL HYDROX/SIMETH 30 ML UNIT-DOSE CUP PO PRN (22:54)
[2024-07-28] MEDS: hydrOXYzine PAMOATE 25 MG CAPSULE (FP) PO PRN (23:31)
[2024-07-29] MEDS ORDERED: ALBUTEROL SO4 HFA INHALER IH PRN (06:24)
[2024-07-29] MEDS ORDERED: BUPRENORPHINE/NALOXONE 0.5 MG/0.125 MG FILM SL ONE (08:30)
[2024-07-29] MEDS: BICTEGRAV/EMTRICIT/TENOFOV (BIKTARVY) 50-200-25 MG TABLET PO SCH (10:35)
[2024-07-29] MEDS: levETIRAcetam 500 MG TABLET (FP) PO SCH (10:35)
[2024-07-29] MEDS: PRENATAL VITAMINS W/ FOLIC ACID TABLET (FP) PO SCH (10:35)
[2024-07-29] MEDS: cloNIDine HCL 0.1 MG TABLET PO SCH (10:35)
[2024-07-29] MEDS: BUPRENORPHINE/NALOXONE 0.5 MG/0.125 MG FILM SL ONE ×2 (10:36→22:27)
[2024-07-29] MEDS: NICOTINE 14 MG/24 HOURS TOPICAL PATCH TD SCH (10:39)
[2024-07-29] MEDS: methaDONE HCL 10 MG TABLET (FOR DETOX USE ONLY) PO ONE ×2 (10:40→10:42)
[2024-07-29] MEDS: BUDESONIDE/FORMETEROL FUMARATE 80/4.5 mcg INHALER IH SCH (10:40)
[2024-07-29] MEDS: METHOCARBAMOL 500 MG TABLET PO PRN (14:04)
[2024-07-29] MEDS: IBUPROFEN 600 MG TABLET (FP) PO PRN (20:33)
[2024-07-29] MEDS: THIAMINE 100 MG TABLET PO SCH (22:24)
[2024-07-29] MEDS: MELATONIN 5 MG TABLETS PO SCH (22:24)
[2024-07-30] MEDS: BUPRENORPHINE/NALOXONE 0.5 MG/0.125 MG FILM SL SCH (09:54)
[2024-07-30 13:05] VITALS: BP 124/73; PULSE 79; RESP 16; TEMP 98
[2024-07-31] MEDS ORDERED: methaDONE HCL 10 MG TABLET (FOR DETOX USE ONLY) PO ONE (10:00)
[2024-07-31] MEDS ORDERED: BUPRENORPHINE/NALOXONE 2 MG/0.5 MG FILM PACKET SL SCH (10:00)
[2024-08-01] MEDS ORDERED: BUPRENORPHINE/NALOXONE 4 MG/1 MG FILM PACKET SL SCH (10:00)
[2024-08-02] MEDS ORDERED: BUPRENORPHINE/NALOXONE 8 MG/2 MG FILM PACKET SL SCH (10:00)
[2024-08-02] MEDS ORDERED: methaDONE HCL 10 MG TABLET (FOR DETOX USE ONLY) PO ONE (10:00)
[2024-08-03] MEDS ORDERED: BUPRENORPHINE/NALOXONE 8 MG/2 MG FILM PACKET SL SCH (10:00)
== END 2024-07-30 13:53 | disposition left against medical advice (07) | DRG 773 ==
LOC: YASAS 21:17 → Y6N 22:54
PROVIDERS: ADMIT Allergy & Immunology; ATTEND Surgery
PROC: HZ2ZZZZ Detoxification Services for Substance Abuse Treatment (ICD-10-PCS; principal; 2024-07-28)
DX: F11.23 Opioid dependence with withdrawal (principal); F14.20 Cocaine dependence, uncomplicated; F17.210 Nicotine dependence, cigarettes, uncomplicated; B20 Human immunodeficiency virus [HIV] disease; R56.1 Post traumatic seizures; Z86.79 Personal history of other diseases of the circulatory system; Z86.19 Personal history of other infectious and parasitic diseases; Z91.148 Patient's other noncompliance with medication regimen for other reason; Z88.2 Allergy status to sulfonamides
CPT/HCPCS: 80305; 93005; 93010

== ENCOUNTER 2024-08-06 03:49 | Emergency (ER) | payer OTHER ==
[2024-08-06 03:54] VITALS: BP 136/91; PULSE 64; RESP 18; TEMP 97.9; BMI 22.3
[2024-08-06 05:18] LABS: INR 1.03 (0.83-1.09); PROTHROMBIN TIME (PATIENT) 11.6 SEC (9.7-13.0)
[2024-08-06 05:20] LABS: ACTIVATED PTT 31.4 SECONDS (25.2-36.5)
[2024-08-06 05:37] LABS: POTASSIUM 3.6 mmol/L (3.5-5.1)
[2024-08-06 05:39] LABS: ALBUMIN 3.6 g/dl (3.4-5.0); BASO % 0.6 % (0-2.0); BLOOD UREA NITROGEN 24.1 mg/dL (7-18); CALCIUM 9.3 mg/dL (8.5-10.1); EOS % 5.7 % (0-4.5); HEMATOCRIT 36.4 % (35.4-49); HEMOGLOBIN 12.2 GM/dL (11.7-16.9); LYMPH % 26.2 % (8-40); MCH 32.7 pg (25.7-33.7); MCHC 33.4 g/dl (32.0-35.9); MEAN CELL VOLUME 97.7 fl (80-96); MEAN PLT VOLUME 7.1 fl (7.5-11.1); MONO % 12.1 % (3.8-10.2); NEUT % 55.4 % (42.8-82.8); PLATELET COUNT 355 10^3/uL (134-434); RBC 3.73 M/mm3 (4.00-5.60); RDW 15.8 % (11.9-15.9); WHITE BLOOD COUNT 4.3 K/mm3 (4.0-10.0)
[2024-08-06 05:42] LABS: CREATININE 1.2 mg/dL (0.55-1.3)
[2024-08-06 05:44] LABS: BILIRUBIN,TOTAL 0.9 mg/dL (0.2-1); TOT PROT 7.4 g/dl (6.4-8.2)
== END 2024-08-06 06:27 | disposition home or self-care (01) ==
LOC: JER 03:49
DX: R53.1 Weakness (principal); R07.9 Chest pain, unspecified
CPT/HCPCS: 36415; 71045-TC-FY; 80053; 84484; 85025; 85610; 85730; 93005; 93010; 99285-25

== ENCOUNTER 2024-08-18 03:59 | Emergency (ER) | payer OTHER ==
[2024-08-18 04:10] VITALS: BP 118/73; PULSE 58; RESP 19; TEMP 97.7; BMI 23.0
== END 2024-08-18 06:30 | disposition home or self-care (01) ==
LOC: JER 03:59
DX: M79.10 Myalgia, unspecified site (principal); R09.81 Nasal congestion; R07.9 Chest pain, unspecified; Z20.822 Contact with and (suspected) exposure to COVID-19
CPT/HCPCS: 0241U-QW; 93005; 93010; 99284-25

== ENCOUNTER 2024-10-19 23:41 | Inpatient (IN) | payer OTHER ==
[2024-10-20] MEDS ORDERED: ALBUTEROL SO4 HFA INHALER IH PRN (00:55)
[2024-10-20] MEDS ORDERED: IBUPROFEN 400 MG TABLET (FP) PO PRN (00:56)
[2024-10-20] MEDS ORDERED: guaiFENesin 600 MG TABLET.ER (FP) PO PRN (00:56)
[2024-10-20] MEDS ORDERED: LOPERAMIDE HCL 2 MG CAPSULE PO PRN (00:56)
[2024-10-20] MEDS ORDERED: NALOXONE (NARCAN) HCL 4 MG/0.1 ML SPRAY NS PRN (00:56)
[2024-10-20] MEDS ORDERED: ACETAMINOPHEN 325 MG TABLET (FP) PO PRN (00:56)
[2024-10-20] MEDS ORDERED: NICOTINE POLACRILEX 2 MG GUM BUC PRN (00:56)
[2024-10-20] MEDS ORDERED: POLYETHYLENE GLYCOL (HEALTHYLAX) 3350 17 GM PACKET PO PRN (00:56)
[2024-10-20] MEDS ORDERED: MAG HYDROX/AL HYDROX/SIMETH 30 ML UNIT-DOSE CUP PO PRN (00:56)
[2024-10-20] MEDS ORDERED: MAGNESIUM HYDROX 2400MG/30ML ORAL SUSPENSION 30 ML CUP PO PRN (00:56)
[2024-10-20] MEDS ORDERED: IBUPROFEN 600 MG TABLET (FP) PO PRN (00:56)
[2024-10-20] MEDS ORDERED: NICOTINE POLACRILEX 2 MG LOZENGE BC PRN (00:56)
[2024-10-20 00:57] VITALS: BMI 22.0
[2024-10-20] MEDS ORDERED: ALBUTEROL SO4 0.083% IH SOL 2.5 MG/3 ML VIAL.NEB. NEB PRN (01:07)
[2024-10-20] MEDS ORDERED: levETIRAcetam 500 MG TABLET (FP) PO ONE (01:36)
[2024-10-20] MEDS: levETIRAcetam 500 MG TABLET (FP) PO SCH (01:38)
[2024-10-20] MEDS: METHOCARBAMOL 500 MG TABLET PO PRN (03:21)
[2024-10-20] MEDS: BUDESONIDE/FORMETEROL FUMARATE 80/4.5 mcg INHALER IH SCH (10:16)
[2024-10-20] MEDS: LIDOCAINE 4% PATCH TP SCH (10:16)
[2024-10-20] MEDS: PRENATAL VITAMINS W/ FOLIC ACID TABLET (FP) PO SCH (10:16)
[2024-10-20] MEDS: BENZONATATE 200 MG CAPSULE PO PRN (10:52)
[2024-10-20] MEDS: hydrOXYzine PAMOATE 25 MG CAPSULE (FP) PO PRN (18:31)
[2024-10-20] MEDS ORDERED: MELATONIN 5 MG TABLETS PO SCH (22:00)
[2024-10-20] MEDS: LIDOCAINE PATCH REMOVAL MC SCH (22:09)
[2024-10-20] MEDS: THIAMINE 100 MG TABLET PO SCH (22:09)
[2024-10-20] MEDS: SUVOREXANT 10 MG TABLET PO PRN (22:10)
[2024-10-20] MEDS: P-EPHED 60MG/TRIPROLIDI 2.5MG TABLET PO PRN (22:11)
[2024-10-20] MEDS: BENZOCAINE/MENTHOL (CHLORASEPTIC ) LOZENGE MM PRN (22:12)
[2024-10-21 06:02] VITALS: BP 124/76; PULSE 64; RESP 17; TEMP 97.6
[2024-10-21] MEDS ORDERED: NALOXONE (NYS OPIOID OVERDOSE PROGRAM) 4 MG/0.1 ML SPRAY NS PRN (09:16)
[2024-10-21] MEDS: NALOXONE (NYS OPIOID OVERDOSE PROGRAM) 4 MG/0.1 ML SPRAY NS SCH (09:30)
== END 2024-10-21 09:22 | disposition left against medical advice (07) | DRG 770 ==
LOC: YASAS 23:41 → Y3NR 10-20 02:09
PROVIDERS: ADMIT Allergy & Immunology; ATTEND Psychiatry & Neurology Pain Medicine
PROC: HZ42ZZZ Group Counseling for Substance Abuse Treatment, Cognitive-Behavioral (ICD-10-PCS; principal; 2024-10-20)
DX: F14.20 Cocaine dependence, uncomplicated (principal); F16.20 Hallucinogen dependence, uncomplicated; F17.210 Nicotine dependence, cigarettes, uncomplicated; F25.9 Schizoaffective disorder, unspecified; F19.282 Other psychoactive substance dependence with psychoactive substance-induced sleep disorder; F19.280 Other psychoactive substance dependence with psychoactive substance-induced anxiety disorder; F19.24 Other psychoactive substance dependence with psychoactive substance-induced mood disorder; B20 Human immunodeficiency virus [HIV] disease; I10 Essential (primary) hypertension; E78.5 Hyperlipidemia, unspecified; J45.909 Unspecified asthma, uncomplicated; R56.1 Post traumatic seizures; Z79.899 Other long term (current) drug therapy; Z62.810 Personal history of physical and sexual abuse in childhood; Z59.01 Sheltered homelessness
CPT/HCPCS: 80305; 87811

== ENCOUNTER 2024-11-13 03:36 | Emergency (ER) | payer OTHER ==
[2024-11-13 03:43] VITALS: BP 107/57; PULSE 93; RESP 18; TEMP 98.8; BMI 20.9
[2024-11-13] MEDS: SODIUM CHLORIDE 0.9% 500 ML INFUS.BAG IV ONE (04:43)
[2024-11-13] MEDS: ACETAMINOPHEN 500 MG TABLET (FP) PO ONE (06:26)
== END 2024-11-13 06:52 | disposition home or self-care (01) ==
LOC: JER 03:36
DX: R53.1 Weakness (principal); R05.9 Cough, unspecified; R09.3 Abnormal sputum; M79.10 Myalgia, unspecified site; R09.81 Nasal congestion; R63.0 Anorexia; Z20.822 Contact with and (suspected) exposure to COVID-19
CPT/HCPCS: 0241U-QW; 71045-TC-FY; 99284-25

== ENCOUNTER 2024-12-16 00:16 | Emergency (ER) | payer OTHER ==
[2024-12-16 00:21] VITALS: TEMP 98.4; BMI 23.7
[2024-12-16 02:54] LABS: BASO % 1.1 % (0-2.0); EOS % 12.7 % (0-4.5); HEMATOCRIT 37.9 % (35.4-49); HEMOGLOBIN 12.8 GM/dL (11.7-16.9); LYMPH % 25.6 % (8-40); MCH 32.3 pg (25.7-33.7); MCHC 33.7 g/dl (32.0-35.9); MEAN CELL VOLUME 95.9 fl (80-96); MEAN PLT VOLUME 7.1 fl (7.5-11.1); MONO % 6.6 % (3.8-10.2); PLATELET COUNT 351 10^3/uL (134-434); RBC 3.95 M/mm3 (4.00-5.60); RDW 15.5 % (11.9-15.9); WHITE BLOOD COUNT 4.8 K/mm3 (4.0-10.0)
[2024-12-16] MEDS: DEXTROSE 5% IVPB ONE (03:23)
[2024-12-16] MEDS: WATER IVPB ONE (03:23)
[2024-12-16] MEDS: ACYCLOVIR IVPB ONE (03:23)
[2024-12-16 03:30] LABS: ALBUMIN 3.7 g/dl (3.4-5.0); BLOOD UREA NITROGEN 26.7 mg/dL (7-18)
[2024-12-16 03:35] LABS: BILIRUBIN,TOTAL 0.2 mg/dL (0.2-1); TOT PROT 7.7 g/dl (6.4-8.2)
[2024-12-16 04:26] VITALS: BP 122/72; PULSE 76; RESP 16
== END 2024-12-16 04:35 | disposition short-term general hospital (02) ==
LOC: JER 00:16
DX: R06.02 Shortness of breath (principal); B02.39 Other herpes zoster eye disease; H53.9 Unspecified visual disturbance; R53.1 Weakness; R05.9 Cough, unspecified; H57.11 Ocular pain, right eye
CPT/HCPCS: 0241U-QW; 36415; 71046-TC-FY; 80053; 85025; 99284-25

== ENCOUNTER 2025-04-04 10:50 | Emergency (ER) | payer OTHER ==
[2025-04-04 11:09] VITALS: BMI 23.3
[2025-04-04] MEDS ORDERED: ACETAMINOPHEN 325 MG TABLET (FP) ONE (11:43)
[2025-04-04] MEDS: ACETAMINOPHEN 325 MG TABLET (FP) PO ONE (11:57)
[2025-04-04 12:02] LABS: ABSOLUTE IMMATURE GRANULOCYTES 0.02 x10^3/uL (0.0-0.031); BASOPHILS # 0.03 x10^3/uL (0.01-0.08); EOSINOPHIL % 2.9 % (0.8-7.0); EOSINOPHILS # 0.15 x10^3/uL (0.04-0.54); HEMATOCRIT 35.4 % (40.1-51.0); HEMOGLOBIN 11.9 g/dL (13.7-17.5); MCHC 33.6 g/dl (32.3-36.5); MEAN PLT VOLUME 9.1 fl (9.4-12.4); MONOCYTE % 11.5 % (5.3-12.2); PLATELET COUNT 332 x10^3/uL (163-337); RDW 14.4 % (12.0-15.6)
[2025-04-04 12:09] LABS: INR 0.94 (0.83-1.09); PROTHROMBIN TIME (PATIENT) 10.2 SEC (9.7-13.0)
[2025-04-04 12:11] LABS: ACTIVATED PTT 28.3 SECONDS (25.2-36.5)
[2025-04-04 12:21] LABS: ALBUMIN 3.2 g/dl (3.4-5.0); CALCIUM 9.7 mg/dL (8.5-10.1)
[2025-04-04 12:26] LABS: BILIRUBIN,TOTAL 0.6 mg/dL (0.2-1)
[2025-04-04 14:00] VITALS: BP 117/86; PULSE 67; RESP 18; TEMP 97.9
[2025-04-04] MEDS ORDERED: levETIRAcetam 500 MG TABLET (FP) PO ONE (14:01)
[2025-04-04] MEDS: levETIRAcetam 500 MG TABLET (FP) PO ONE (14:03)
== END 2025-04-04 14:00 | disposition home or self-care (01) ==
LOC: JER 10:50
DX: G40.909 Epilepsy, unspecified, not intractable, without status epilepticus (principal); R42 Dizziness and giddiness; R51.9 Headache, unspecified
CPT/HCPCS: 36415; 71045-TC-FY; 80053; 84484; 85025; 85610; 85730; 86803; 93005; 93010; 99285-25

== ENCOUNTER 2025-05-08 00:46 | Inpatient (IN) | payer OTHER ==
[2025-05-08] MEDS ORDERED: PIPERACILLIN/TAZOB 3.375 GM 3.375 GM/50 ML BAG IVPB ONE (01:46)
[2025-05-08] MEDS ORDERED: VANCOMYCIN 1 GM PREMIX (F) 1 GM/200 ML BAG ONE (01:46)
[2025-05-08] MEDS: SODIUM CHLORIDE 1,000 ML IV STA (02:16)
[2025-05-08] MEDS: PIPERACILLIN/TAZOB 3.375 GM 3.375 GM in DEXTROSE 5%-WATER - 50 ML IVPB ONE (02:16)
[2025-05-08 02:22] LABS: ABSOLUTE IMMATURE GRANULOCYTES 0.01 x10^3/uL (0.0-0.031); EOSINOPHILS # 0.04 x10^3/uL (0.04-0.54)
[2025-05-08 02:23] LABS: BASOPHILS # 0.02 x10^3/uL (0.01-0.08); EOSINOPHIL % 1.1 % (0.8-7.0); HEMATOCRIT 37.5 % (40.1-51.0); HEMOGLOBIN 12.3 g/dL (13.7-17.5); MCHC 32.8 g/dl (32.3-36.5); MEAN CELL VOLUME 95.9 fl (79.0-92.2); MEAN PLT VOLUME 9.4 fl (9.4-12.4); MONOCYTE # 0.45 x10^3/uL (0.30-0.82); MONOCYTE % 12.1 % (5.3-12.2); PLATELET COUNT 336 x10^3/uL (163-337); RDW 14.1 % (12.0-15.6); VENOUS BASE EXCESS -0.7 mmol/L (-2-2); VENOUS O2 SATURATION 93.9 % (70-80); VENOUS PCO2 34.1 mmHg (38-52); VENOUS PH 7.443 (7.310-7.410)
[2025-05-08] MEDS: VANCOMYCIN 1,000 MG in DEXTROSE 5%-WATER - 250 ML IVPB ONE (02:28)
[2025-05-08 02:46] LABS: POTASSIUM 3.6 mmol/L (3.5-5.1)
[2025-05-08 02:48] LABS: CALCIUM 9.3 mg/dL (8.5-10.1)
[2025-05-08 02:49] LABS: ALBUMIN 3.9 g/dl (3.4-5.0); BLOOD UREA NITROGEN 23.3 mg/dL (7-18); MAGNESIUM 2.1 mg/dL (1.8-2.4)
[2025-05-08 02:53] LABS: BILIRUBIN,TOTAL 0.4 mg/dL (0.2-1); TOT PROT 7.8 g/dl (6.4-8.2)
[2025-05-08 05:23] LABS: INR 1.08 (0.83-1.09); PROTHROMBIN TIME (PATIENT) 11.9 SEC (9.7-13.0)
[2025-05-08 05:26] LABS: ACTIVATED PTT 29.3 SECONDS (25.2-36.5)
[2025-05-08 05:54] VITALS: RESP 18; BMI 22.8
[2025-05-08] MEDS: ALBUTEROL SO4 0.083% IH SOL 2.5 MG/3 ML VIAL.NEB. NEB SCH (08:34)
[2025-05-08 09:40] VITALS: BP 121/79; PULSE 57; TEMP 98.1
[2025-05-08] MEDS: levETIRAcetam 500 MG TABLET (FP) PO SCH (11:33)
[2025-05-08] MEDS: BUDESONIDE/FORMETEROL FUMARATE 80/4.5 mcg INHALER IH SCH (11:34)
[2025-05-08] MEDS: BICTEGRAV/EMTRICIT/TENOFOV (BIKTARVY) 50-200-25 MG TABLET PO SCH (11:34)
== END 2025-05-08 13:00 | disposition left against medical advice (07) | DRG 203 ==
LOC: JER 00:46 → JERBED 01:50 → J4W 05:07
PROVIDERS: ADMIT Internal Medicine; ATTEND Family Medicine
DX: R07.89 Other chest pain (principal); I10 Essential (primary) hypertension; E78.5 Hyperlipidemia, unspecified; F12.90 Cannabis use, unspecified, uncomplicated; F17.210 Nicotine dependence, cigarettes, uncomplicated; F31.9 Bipolar disorder, unspecified; G40.909 Epilepsy, unspecified, not intractable, without status epilepticus; J45.909 Unspecified asthma, uncomplicated; R11.0 Nausea; R53.1 Weakness; R63.0 Anorexia; Z59.00 Homelessness unspecified
CPT/HCPCS: 0241U-QW; 36415; 71045-TC-FY; 80053; 82803; 83605; 83735; 83880; 84484; 85025; 85610; 85730; 86803; 86850; 86900; 86901; 87040; 93005; 93010; 94640; 99285-25